=== PATIENT | female | born 1950 | race Caucasian/White ===

== ENCOUNTER 2018-01-22 20:43 | Inpatient (IN) | payer MEDICARE ==
[2018-01-22] MEDS ORDERED: Calcium Gluc 4.6 MEQ/10 ML (100 MG/ML) ONE (21:20)
[2018-01-23 01:31] VITALS: BMI 17.4
[2018-01-23] MEDS ORDERED: Albuterol Sulfate 2.5 mg/3 ml Neb NEB PRN ×2 (01:32→01:49)
[2018-01-23] MEDS ORDERED: Acetaminophen 325 MG TAB PO PRN ×2 (01:32→01:49)
[2018-01-23] MEDS ORDERED: HYDROcodone/Acetaminophen 5/325 mg Tablet PO PRN (01:49)
[2018-01-23] MEDS ORDERED: Ondansetron HCl/PF 4 MG/2 ML Vial IVP PRN (01:49)
[2018-01-23] MEDS ORDERED: Ondansetron ODT 4 MG TAB PO PRN (01:49)
[2018-01-23] MEDS ORDERED: traMADol HCl 50 MG TAB PO PRN (01:49)
[2018-01-23] MEDS ORDERED: cefTRIAXone\\ROCEPHIN 1 GM, Syringe 0.4 ML in Sterile Water 9.6 ML SLOW IVP SCH (02:00)
[2018-01-23] MEDS ORDERED: Azithromycin 500 MG in Sodium Chloride 0.9% 250 ML 250 ML IVPB SCH (03:00)
[2018-01-23 03:52] LABS: #Lymphocytes 0.9 thou/uL (1.20-3.40); #Monocytes 0.4 thou/uL (0.11-0.59); #Neutrophils 8.3 thou/uL (1.40-6.50); %Basophils 0.2 % (0.0-1.0); %Eosinophils 0.1 % (0.0-10.0); %Lymphocytes 8.9 % (21.0-51.0); %Monocytes 3.7 % (0.0-10.0); %Neutrophils 87.1 % (42.0-75.0); Hemoglobin 9.9 g/dL (12.0-16.0); Mean Corpuscular HGB CONC 31.4 g/dL (32.0-36.0); Mean Corpuscular Volume 85.9 fl (81.0-99.0); Mean Platelet Volume 6.9 fL (7.4-10.4); Platelet Count 418 thou/uL (130-400); RBC Distribution Width 14.8 % (11.5-14.5); Red Blood Cell (RBC) Count 3.66 mill/uL (4.20-5.40); White Blood Cell (WBC) Count 9.6 thou/uL (4.8-10.8)
[2018-01-23 04:02] LABS: Anion Gap 17 mmol/L (10-20); BUN (Urea Nitrogen) 10 mg/dL (9.8-20.1); Calc. Creatinine Clearance 45 mL/min (70-130); Calcium 8.3 mg/dL (7.8-10.44); Carbon Dioxide 22 mmol/L (23-31); Chloride 106 mmol/L (98-107); Estimated GFR-MDRD 81; Glucose 410 mg/dL (80-115); Potassium 3.6 mmol/L (3.5-5.1); Sodium 141 mmol/L (136-145)
[2018-01-23 04:03] LABS: Lactic Acid 7.5 mmol/L (0.5-2.2)
[2018-01-23] MEDS ORDERED: Sodium Chloride 0.9% 1,000 ML IV SCH (04:15)
--- NOTE | 2018-01-23 07:12 | HP ---
DATE OF ADMISSION: 01/23/2018 TIME OF SERVICE: 0330 CHIEF COMPLAINT: Shortness of breath. HISTORY OF PRESENT ILLNESS: Ms. Parrish is a pleasant 67-year-old female. She has a history of rheuma toid arthritis on leflunomide and chronic prednisone. She also has a history of COPD. The patient presented to an outside Emergency Department complaining of cough, was found to have whee zing and hypoxia. She was subsequently worked up and sent here for further treatment. On arrival he re, she was given some antibiotics and given nebulizer treatments and we were subsequently called for admission. She is requiring 2 liters nasal cannula to maintain oxygen saturations. Appears septic on arrival to the floor, she was weaned off oxygen, she was tolerating her breathing t reatments and was breathing somewhat better. In the outside ER, she was given Decadron, amoxicillin, DuoNeb, and mag sulfate 2 grams. On arrival here, she was given 2 liters nasal cannula, another DuoNeb and we were called for admission. PAST MEDICAL HISTORY: 1. COPD, not ever formally diagnosed. 2. Rheumatoid arthritis. PAST SURGICAL HISTORY: Hysterectomy. ALLERGIES: 1. Tramadol 50 mg p.o. q.6h. p.r.n. 2. Cipro 250 mg p.o. b.i.d. recently started. 3. Prednisone 10 mg every other day. 4. Meloxicam 7.5 mg p.o. b.i.d. 5. Leflunomide 10 mg p.o. q.p.m. 6. Flexeril 5 mg p.o. at bedtime. ALLERGIES: CODEINE causes nausea. FAMILY HISTORY: Negative for clotting or bleeding disorder, no immune dysfunction. SOCIAL HISTORY: Significant for ongoing tobacco use about 1 pack per day. REVIEW OF SYSTEMS: A 10-point review of systems was performed, negative for all systems except as pe r HPI. PHYSICAL EXAMINATION: VITAL SIGNS: Temperature 97.4, pulse 116, blood pressure 151/78, respiratory rate 20, satting 86% on room air, currently satting up to 94% on room air now. GENERAL: She is awake. She is alert. She is oriented x3. She is a small well-developed, well-nour ished, white female, appears to be in no acute distress. HEENT: Normocephalic and atraumatic. Pupils equal, round, reactive bilaterally, mucous membranes ar e moist. There are no visible lesions. No thrush. NECK: Supple. She has no lymphadenopathy, JVD or thyromegaly. She had normal carotid upstroke, no bruit. ABDOMEN: Soft, is nontender, nondistended. She had no masses or organomegaly. EXTREMITIES: No cyanosis, clubbing with trace pedal edema. SKIN: Warm, moist, well perfused. She had no rashes or lesions. NEUROLOGIC: Her cranial nerves II-XII are grossly intact without any focal neurologic deficits and 5 /5 strength. Speech pattern is normal. MUSCULOSKELETAL: Normal to inspection. No inflamed joints. No palpable effusions. LABORATORY DATA: Sodium 140, potassium 3.9, chloride 99, bicarbonate 22, BUN 14, creatinine 0.61 and glucose 177 with a calcium 9.3. The liver functions are within normal limits. CBC showed a white count of 17.6, hemoglobin 11.8, hem atocrit of 36.7, and platelet count is 476,000. Chest x-ray showed a right middle lobe infiltrate, possible pneumonia. ASSESSMENT AND PLAN: 1. Right middle lobe community-acquired pneumonia. We will transition her to levofloxacin. She has now been weaned off of oxygen. We will likely be able to discharge her later today or tomorrow if s he remains stable. 2. Acute exacerbation of chronic obstructive pulmonary disease: The patient is on nebulizer treatme nts, steroids. She can be transitioned to oral when she is stable. 3. Acute hypoxic respiratory failure: After steroids and nebulizer treatments, has resolved. She i s not requiring oxygen at this point. 4. History of steroid dependent rheumatoid arthritis on prednisone 10 mg every other day. She is cu rrently getting Solu-Medrol 40 q.6h. and we will certainly cover her rheumatoid arthritis as well. W e will hold oral prednisone at present. 5. Sepsis, severe. She did meet criteria, she was tachycardic, elevated white counts, hypoxemic and lactic acid of initially 3.1 and up to 7.8. She gets 2 liters of fluids in the Emergency Department , she got another liter on the floor and we will continue fluids at 125 an hour. Repeat lactic acid level later today. We will place the patient on inpatient status on the medical cooper. We will continue to hydrate and t reat with antibiotics and repeat labs.
[2018-01-23] MEDS: Meloxicam 7.5 MG TAB PO SCH ×2 (09:06→21:16)
[2018-01-23] MEDS: Famotidine 20 MG TAB PO SCH ×2 (09:06→21:15)
[2018-01-23] MEDS ORDERED: Heparin 5,000 UNITS/ML VIAL SC SCH (15:00)
[2018-01-23] MEDS ORDERED: Leflunomide 10 mg Tablet PO SCH (21:00)
[2018-01-23] MEDS ORDERED: Cyclobenzaprine 10 MG TAB PO SCH (21:00)
[2018-01-24] MEDS ORDERED: Dextrose 50% Abboject 50 ML SYRINGE IVP PRN (03:44)
[2018-01-24] MEDS ORDERED: HumaLOG 300 UNITS/3 ML VIAL SC PRN (03:44)
[2018-01-24] MEDS ORDERED: Dextrose 5% in Water 1,000 ML IV PRN (03:44)
[2018-01-24 05:34] LABS: Lactic Acid 3.5 mmol/L (0.5-2.2)
[2018-01-24 05:36] LABS: Anion Gap 13 mmol/L (10-20); BUN (Urea Nitrogen) 14 mg/dL (9.8-20.1); Calc. Creatinine Clearance 52 mL/min (70-130); Carbon Dioxide 29 mmol/L (23-31); Chloride 100 mmol/L (98-107); Estimated GFR-MDRD Greater than 90; Glucose 287 mg/dL (80-115); Potassium 3.4 mmol/L (3.5-5.1); Sodium 139 mmol/L (136-145)
[2018-01-24 05:43] LABS: Hemoglobin 11.2 g/dL (12.0-16.0); MDiff Complete? YES; Mean Corpuscular HGB CONC 31.4 g/dL (32.0-36.0); Mean Corpuscular Hemoglobin 27.2 pg (27.0-31.0); Mean Corpuscular Volume 86.5 fl (81.0-99.0); Mean Platelet Volume 6.9 fL (7.4-10.4); Platelet Count 462 thou/uL (130-400); RBC Distribution Width 15.3 % (11.5-14.5); Red Blood Cell (RBC) Count 4.13 mill/uL (4.20-5.40); White Blood Cell (WBC) Count 14.9 thou/uL (4.8-10.8)
[2018-01-24 05:44] LABS: Band 14 % (5-11); Lymphocytes 8 % (21-51); Metamyelocyte 5 % (0-0); Monocytes 6 % (0-10); Neutrophil 67 % (42-75); PLT Morphology Comment Appears Increased
[2018-01-24] MEDS: HumaLOG 300 UNITS/3 ML VIAL SC PRN ×2 (05:51→12:21)
[2018-01-24] MEDS: Famotidine 20 MG TAB PO SCH (08:51)
[2018-01-24] MEDS: Meloxicam 7.5 MG TAB PO SCH (08:51)
[2018-01-24] MEDS ORDERED: Prevnar 13-Val Conj/PF 0.5 ML SYRINGE IM ONE (09:00)
[2018-01-24] MEDS ORDERED: FLU VACC TS2017-18 (>65YR) 0.5 ML SYRINGE IM ONE (09:00)
[2018-01-24] MEDS ORDERED: Potassium Chloride 20 MEQ TAB PO SCH (10:00)
[2018-01-24 10:06] LABS: Hemoglobin A1c 5.8 % (4.0-6.0)
[2018-01-24] MEDS ORDERED: Sodium Chloride 0.9% 500 ML IV SCH (11:15)
[2018-01-24 13:30] VITALS: BP 143/80; TEMP 98
--- NOTE | 2018-01-24 20:11 | DIS ---
DATE OF ADMISSION: 01/23/2018 DATE OF DISCHARGE: 01/24/2018 DISCHARGE DIAGNOSES: Severe sepsis secondary to right middle lobe pneumonia, chronic obstructive pul monary disease exacerbation, acute hypoxic respiratory failure, steroid dependent rheumatoid arthriti s on 10 mg prednisone every other day. HISTORY OF PRESENT ILLNESS AND HOSPITAL COURSE: Ms. Parrish is a 67-year-old female with a history of rheumatoid arthritis on leflunomide and chronic prednisone, COPD who presented to the emergency room with cough, shortness of breath, wheezing. She was found to be hypoxic. She was started on nebulize r therapy, 2 liters of IV fluid that she met sepsis criteria and IV levofloxacin. Before presenting at our ER from her outside ER, she was given a dose of Decadron, amoxicillin, DuoNeb and magnesium ellis lfate 2 grams. While in house, she responded to therapy. She was weaned off oxygen. Her initial la ctate level was 7.8 and improved to 3.5 before discharge. She also had a hemoglobin A1c done, which was 5.8. Her labs were largely unremarkable and she was discharged home without incident. HOME MEDICATIONS: Levofloxacin 750 mg daily, prednisone 40 mg daily for 5 days, tramadol 50 mg every 4 hours as needed, prednisone 10 mg every other day, Flexeril 5 mg at bedtime, Meloxicam 7.5 mg twic e a day, leflunomide 10 mg every evening. PHYSICAL EXAMINATION: She was examined on the day of discharge. VITAL SIGNS: Temperature of 106, respiratory rate 20, oxygen saturation 94% on room air, blood press ure 149/80. GENERAL: Not in acute distress, lying comfortably in bed. HEENT: Normocephalic, atraumatic, not pale, anicteric. Moist mucous membranes. NECK: Supple, full range of movement. No edema. RESPIRATORY: Vesicular breath sounds bilaterally with no wheezes or rales. CARDIOVASCULAR: Regular rate and rhythm, S1 and S2 only. No murmurs, rubs or gallops. ABDOMEN: Soft, nontender, nondistended. Bowel sounds present. No hepatosplenomegaly. MUSCULOSKELETAL: No edema. Moving all extremities spontaneously. SKIN: Warm, dry, well-perfused. No rashes or lesions. NEUROLOGIC: Alert and well oriented to time, place and person. No focal deficits. PSYCHIATRIC: Normal mood and affect. LABORATORY DATA: WBC 14.9 (on parenteral steroids), hemoglobin 11.2, platelet count 462. Sodium 139 , potassium 3.4, chloride 100, carbon dioxide 29, anion gap 13, BUN 14, creatinine 0.62, glucose 287, calcium 9.0. IMAGING: None. CONSULTATIONS: None. PROCEDURES: None. CONDITION AT DISCHARGE: Stable and improved. ACTIVITY: To resume as tolerated. CARE GOALS: The patient is to follow up with her primary care physician within 1 week of discharge f or repeat labs.
--- NOTE | 2018-02-10 15:46 | EKG ---
Test Reason : Blood Pressure : / mmHG Vent. Rate : 128 BPM Atrial Rate : 128 BPM P-R Int : 118 ms QRS Dur : 110 ms QT Int : 320 ms P-R-T Axes : 078 062 046 degrees QTc Int : 467 ms Sinus tachycardia Right bundle branch block Abnormal ECG Confirmed by IVORY SAUER M.D. ([id number]), photographic editor MEDARDO TRUONG ([id number] on 02/10/2018 3:46:07 PM Referred By: Confirmed By:IVORY SAUER M.D.
== END 2018-01-24 13:50 | disposition home or self-care (01) | DRG 871 ==
LOC: ERS 20:43 → T4-B 01-23 00:55
PROVIDERS: ADMIT Internal Medicine Infectious Disease; ATTEND Internal Medicine Infectious Disease
DX: A41.9 Sepsis, unspecified organism (principal); J18.9 Pneumonia, unspecified organism; J96.01 Acute respiratory failure with hypoxia; J44.1 Chronic obstructive pulmonary disease with (acute) exacerbation; R65.20 Severe sepsis without septic shock; F17.210 Nicotine dependence, cigarettes, uncomplicated; M06.9 Rheumatoid arthritis, unspecified
CPT/HCPCS: 36415; 36416; 80048; 83036; 83605; 85025; 90471; 90670; 93005; 94640; 96360; 96361; A4216; G0009; G8978-GP-CK; G8979-GP-CK; G8980-GP-CK; G8987-GO-CH; G8988-GO-CH; G8989-GO-CH; J0456; J0696; J1956; J2920; J7050; J7620

== ENCOUNTER 2019-06-24 20:44 | Inpatient (IN) | payer MEDICARE ==
[2019-06-25] MEDS ORDERED: Calcium Carbonate 500 MG ChewTAB PO PRN (10:58)
[2019-06-25] MEDS ORDERED: Acetaminophen 325 MG TAB PO PRN (10:58)
[2019-06-25] MEDS ORDERED: Bisacodyl 10 MG SUPP PR PRN (10:58)
[2019-06-25] MEDS ORDERED: Ondansetron ODT 4 MG TAB PO PRN (10:58)
[2019-06-25] MEDS ORDERED: Senokot S 8.6-50 MG TAB PO PRN (10:58)
[2019-06-25] MEDS ORDERED: Ondansetron PF 4 MG/2 ML Vial IVP PRN (10:58)
[2019-06-25] MEDS ORDERED: Pantoprazole 40 MG VIAL IVP SCH (11:00)
[2019-06-25] MEDS ORDERED: Pantoprazole 40 MG VIAL ONE (11:16)
[2019-06-25] MEDS ORDERED: Acetaminophen 325 MG TAB ONE (11:16)
[2019-06-25 12:20] LABS: Hemoglobin 13.8 g/dL (12.0-16.0); Mean Corpuscular HGB CONC 31.4 g/dL (32.0-36.0); Mean Corpuscular Hemoglobin 22.8 pg (27.0-31.0); Mean Corpuscular Volume 72.8 fL (78.0-98.0); Mean Platelet Volume 5.7 fL (7.4-10.4); Platelet Count 321 thou/uL (130-400); RBC Distribution Width 24.3 % (11.5-14.5); Red Blood Cell (RBC) Count 6.03 mill/uL (4.20-5.40); Reticulocyte Count 1.6 % (0.5-1.5); White Blood Cell (WBC) Count 15.2 thou/uL (4.8-10.8)
[2019-06-25 12:23] LABS: INR-International Normal Ratio 1.1; PTT 28.7 SEC (22.9-36.1); Prothrombin Time 13.8 SEC (12.0-14.7)
[2019-06-25 12:40] LABS: ALT (SGPT) Less than 7 U/L (8-55); AST (SGOT) 14 U/L (5-34); Albumin 3.7 g/dL (3.4-4.8); Alkaline Phosphatase 102 U/L (40-150); Anion Gap 13 mmol/L (10-20); BUN (Urea Nitrogen) 7 mg/dL (9.8-20.1); Bilirubin, Total 1.8 mg/dL (0.2-1.2); Calc. Creatinine Clearance 0 mL/min (70-130); Carbon Dioxide 24 mmol/L (23-31); Chloride 103 mmol/L (98-107); Estimated GFR-MDRD Greater than 90; Globulin 2.7 g/dL (2.4-3.5); Glucose 67 mg/dL (80-115); Potassium 3.6 mmol/L (3.5-5.1); Protein, Total 6.4 g/dL (6.0-8.3); Sodium 136 mmol/L (136-145)
[2019-06-25 12:45] LABS: Anisocytosis MODERATE=16-30 cells (100X) (0-5/hpf); Band 11 % (5-11); Elliptocytes SLIGHT = 2-5 cells (100X) (0-1/hpf); Hypochromia SLIGHT = 6-15 cells (100X) (0-5/hpf); Lymphocytes 15 % (21-51); MDiff Complete? YES; Microcytosis SLIGHT = 6-15 cells (100X) (0-5/hpf); Monocytes 1 % (0-10); Neutrophil 69 % (42-75); Nucleated RBC 1 % (0); Ovalocytes SLIGHT = 2-5 cells (100X) (0-1/hpf); Platelet Morphology Comment Appears Adequate; Poikilocytosis SLIGHT = 6-15 cells (100X) (0-5/hpf); Polychromasia MODERATE = 3-4 cells (100X) (0-2/hpf); Reactive Lymphocytes 1 % (0-10); Reflex for Review?? NO; Schistocytes SLIGHT = 2-5 cells (100X) (0-1/hpf); Target Cells SLIGHT = 2-5 cells (100X) (0-1/hpf); Vacuoles SLIGHT
[2019-06-25] MEDS ORDERED: Nystatin 500,000 UNITS/5 ML UDCUP SSW SCH (13:00)
[2019-06-25] MEDS ORDERED: traMADol HCl 50 MG TAB PO PRN (15:02)
[2019-06-25] MEDS ORDERED: Cyclobenzaprine 10 MG TAB PO PRN (15:03)
[2019-06-25] MEDS ORDERED: Nystatin 500,000 UNITS/5 ML UDCUP SSW PRN (15:03)
--- NOTE | 2019-06-25 15:55 | HP ---
PRIMARY CARE PHYSICIAN: Phyllis Darling. PRIMARY DEPLOYMENT SPECIALIST: Dr. Diop. CHIEF COMPLAINT: Abnormal labs. HISTORY OF PRESENT ILLNESS: The patient is a 69-year-old white female with rheumatoid arthritis, on chronic steroids, presented to the emergency room with above complaints. Two days ago, the patient had CBC drawn as outpatient that showed low hemoglobin. She was not told how low was her hemoglobin. She was advised to go to the emergency room for evaluation. She presented to [facility] and was found to have hemoglobin of 6.5. She has been having exertional shortness of breath along with generalized fatigue recently. She denies any chest pain or syncope. Approximately one month ago, she had small amount of blood on the toilet paper that lasted for 2 to 3 days. She has also lost approximately 5 pounds recently. She denies any hematemesis, melena, or hematochezia. No change in appetite. She had a normal bowel movement today. The patient denies any recent use of NSAID except for meloxicam 7.5 mg b.i.d., which she takes on a daily basis. PAST MEDICAL HISTORY: 1. Rheumatoid arthritis, on chronic steroids and leflunomide. 2. Chronic pain syndrome. 3. Chronic obstructive pulmonary disease. PAST SURGICAL HISTORY: Hysterectomy. MEDICATIONS: The patient takes tramadol as needed, Flexeril 10 mg nightly, prednisone 10 mg daily, meloxicam 7.5 mg b.i.d., leflunomide 10 mg daily. ALLERGIES: THE PATIENT IS ALLERGIC TO CODEINE. REVIEW OF SYSTEMS: All other review of systems was reviewed and were found negative. SOCIAL HISTORY: The patient currently lives at home with her family. She continues to smoke up to one pack a day. She denies any alcohol or drug use. She has smoked for more than 25 years. FAMILY HISTORY: Negative for heart disease. PHYSICAL EXAMINATION: VITAL SIGNS: At [facility], initial vital signs showed temperature of 98.1, respirations are 18, pulse rate of 124, blood pressure of 126/68, and O2 saturation 92% on room air. GENERAL: A 69-year-old female in no apparent distress. She has some headache this morning. HEENT: Head; atraumatic and normocephalic. Sclerae anicteric. Dry mucous membranes. No oral lesion. NECK: Supple. No JVD appreciated. No carotid bruit. LUNGS: Showed bilateral rhonchi without any wheezing. HEART: S1 and S2 present. Regular rate and rhythm. Tachycardic. No rubs or gallops. ABDOMEN: Soft and nontender. Bowel sounds present. EXTREMITIES: No edema or calf tenderness. NEUROLOGIC: Grossly nonfocal. Moves all 4 extremities. PSYCHIATRY: Alert, awake, and oriented x3. SKIN: Warm and dry. LYMPH NODES: No palpable lymph nodes in the neck. PERIPHERAL VASCULAR: Radial pulses palpable bilaterally. MUSCULOSKELETAL: No joint swelling or tenderness. LABORATORY FINDINGS: Hemoglobin 6.5, WBC 14.6, hematocrit 23.2, and platelet 471. PT/INR and PTT, normal range. Troponin 0.030. CK-MB was 1.2. Ferritin 20.1. Sodium 138, potassium 4.6, chloride 100, bicarb 26, BUN 9, and creatinine 0.72. BNP was 32. Stool for occult blood in the emergency room was negative. Chest x-ray by my review was negative for acute findings. IMPRESSION: 1. Anemia of unclear etiology. 2. Rheumatoid arthritis, on chronic steroids and leflunomide. 3. Chronic pain syndrome. 4. Ongoing tobacco abuse. 5. Questionable chronic obstructive pulmonary disease. 6. Leukocytosis, unlikely to be infectious. 7. Weight loss of 5 pounds over the last month. 8. Codeine allergy. 9. Elevated troponin probably secondary to sinus tachycardia/type 2 myocardial infarction. PLAN: The patient will be monitored on the medical floor. She received a total of 3 units of PRBC in the emergency room. We will repeat H and H in the morning. Gentle IV hydration. IV PPIs. We will consult Gastroenterology. Clear liquid diet for now. Resume home medications. Avoid NSAIDs. Plan of care was discussed with the patient in detail. She stated understanding. Job ID: [id number]
[2019-06-25 16:17] VITALS: BMI 13.6
[2019-06-25] MEDS: Sodium Chloride 0.9% 1,000 ML IV SCH (16:36)
[2019-06-25] MEDS ORDERED: GoLYTELY 4,000 ml Bottle PO SCH (19:00)
[2019-06-25] MEDS: Pantoprazole 40 MG VIAL IVP SCH (20:26)
[2019-06-25] MEDS: Cyclobenzaprine 10 MG TAB PO SCH (20:27)
[2019-06-26] MEDS: Sodium Chloride 0.9% 1,000 ML IV SCH ×2 (07:20→16:51)
[2019-06-26 07:21] LABS: Hemoglobin 13.7 g/dL (12.0-16.0); Mean Corpuscular Hemoglobin 22.2 pg (27.0-31.0); Mean Corpuscular Volume 74.2 fL (78.0-98.0); Mean Platelet Volume 5.7 fL (7.4-10.4); Platelet Count 334 thou/uL (130-400); RBC Distribution Width 26.3 % (11.5-14.5); Red Blood Cell (RBC) Count 6.16 mill/uL (4.20-5.40); White Blood Cell (WBC) Count 13.6 thou/uL (4.8-10.8)
[2019-06-26] MEDS: predniSONE 5 MG TAB PO SCH (07:26)
[2019-06-26 07:31] LABS: Anion Gap 12 mmol/L (10-20); BUN (Urea Nitrogen) 4 mg/dL (9.8-20.1); Calc. Creatinine Clearance 41 mL/min (70-130); Calcium 8.9 mg/dL (7.8-10.44); Carbon Dioxide 26 mmol/L (23-31); Chloride 105 mmol/L (98-107); Estimated GFR-MDRD Greater than 90; Glucose 66 mg/dL (80-115); Magnesium 1.8 mg/dL (1.6-2.6); Potassium 3.6 mmol/L (3.5-5.1); Sodium 139 mmol/L (136-145)
[2019-06-26] MEDS: Pantoprazole 40 MG VIAL IVP SCH (08:01)
[2019-06-26 08:12] LABS: Anisocytosis MODERATE=16-30 cells (100X) (0-5/hpf); Band 7 % (5-11); Eosinophils 2 % (0-10); Hypochromia SLIGHT = 6-15 cells (100X) (0-5/hpf); Lymphocytes 9 % (21-51); MDiff Complete? YES; Microcytosis MODERATE=15-30 cells (100X) (0-5/hpf); Monocytes 8 % (0-10); Neutrophil 63 % (42-75); Ovalocytes SLIGHT = 2-5 cells (100X) (0-1/hpf); Platelet Morphology Comment Appears Adequate; Polychromasia MODERATE = 3-4 cells (100X) (0-2/hpf); Reactive Lymphocytes 10 % (0-10); Small Platelets SLIGHT
--- NOTE | 2019-06-26 08:15 | CON ---
DATE OF CONSULTATION: REASON FOR CONSULT: Severe microcytic anemia. HISTORY OF PRESENT ILLNESS: Ms. Parrish is a 69-year-old female with chronic arthritis, which she states is rheumatoid arthritis in nature. She has been treated for many years. More recently, she has been on leflunomide and from the last year, she has been taking prednisone 10 mg daily and meloxicam 7.5 mg b.i.d. She became more and more fatigued and her preparer or one of her clinic doctors got blood work and found her to be profoundly anemic. She was told to come to the hospital. Her hemoglobin had been 11.1 here in February of 2018. On arrival here at 6 p.m. on 06/24, her hemoglobin was 6.5 and she had a white count of 14.6 and platelet count of 471. She has had blood transfusion of 3 units, and her hemoglobin presently is 13.8. Her MCV was 57 on presentation. The patient states she has seen a blob of blood in her stool every once in awhile but has not had any other bowel changes. No difficulty with bowel movements or diarrhea or change in bowel function or stool size. She denies any abdominal pain. She states her weight is a bit up and down. More recently, it has been down a bit. She denies any melena, hematochezia, or hematemesis. She denies any fever or chills. She denies any prior knowledge of anemia. The only imaging I see at this hospital in the past was a CAT scan in 02/2018, at which time, she had a CAT scan of the abdomen and pelvis for right upper quadrant abdominal pain. There was diverticulosis with some fecal matter throughout the colon and possible thickening in the sigmoid. Degenerative spine changes. Scoliosis. Evidence of previous hysterectomy. Vascular calcifications. Small pulmonary nodule. She was not admitted at that time. PAST MEDICAL HISTORY: Rheumatoid arthritis, on chronic steroids, leflunomide, and NSAIDs. Chronic pain syndrome. COPD. Uterine cancer, for which she had the hysterectomy. PAST SURGICAL HISTORY: Hysterectomy. MEDICATIONS: 1. Tramadol p.r.n. 2. Flexeril. 3. Prednisone 10 mg daily. 4. Meloxicam 7.5 mg b.i.d. for several years. 5. She has been on no ulcer prophylaxis. 6. She is on leflunomide 10 mg daily. ALLERGIES: CODEINE. REVIEW OF SYSTEMS: Negative for dysphagia, odynophagia, melena, hematochezia, hematemesis, anorexia, or change in bowel function. Positive for shortness of breath and dyspnea on exertion recently, which resolved with transfusion. Negative for history of dysuria, frequency, urgency, or hematuria. Negative for cough. Negative for fever or chills. Negative for rashes, myalgias, or arthralgias. SOCIAL HISTORY: The patient lives at home with family. She continues to smoke about a pack per day. She does not drink. She does not use drugs. MEDICATIONS: Here in the hospital, 1. Prednisone 10 mg p.o. daily. 2. Normal saline at 75 an hour. 3. Tramadol p.r.n. 4. Protonix 40 IV q.12. 5. Leflunomide. 6. Flexeril. 7. Tylenol. PHYSICAL EXAMINATION: VITAL SIGNS: Temperature is 98, pulse 105, and blood pressure 169/90. GENERAL: She is thin and frail. SKIN: Frail. HEENT: Her oropharynx is without lesions. NECK: Supple without nodes. LUNGS: Clear. HEART: Regular rate and rhythm without clicks, rubs, or murmurs. ABDOMEN: Soft, nontender with no rebound or guarding. Bowel sounds are positive. EXTREMITIES: No clubbing, cyanosis, or edema. She has some muscle wasting. LABORATORY DATA: White count 15.2, hemoglobin 13.8, MCV 72, and platelet count 321. INR 1.1. Comp met profile normal with a BUN of 7 and creatinine 0.57. Bilirubin 1.8. AST and ALT are 14 and 7, protein 6, and albumin 3.7. Troponin was 0.026. ASSESSMENT: 1. Severe microcytic anemia in the face of chronic NSAID and steroids. My concern would be that of GI blood loss from ulcer disease. She has also had some thickening in the sigmoid colon about a year ago. She has no pain here and denies any change in bowel function, but she has never had any screening colonoscopy either. 2. Chronic steroid use. She is at high risk for complications related to this, not just with ulcer disease in the GI tract but with poor wound healing, increased risk, complications of invasive procedures. I have explained all of this with her. However, with her severe anemia, I think she is going to need endoscopic evaluation. She is stable presently. She shows no signs of acute bleeding and is stable from a Cardiopulmonary standpoint. RECOMMENDATIONS: EGD and colonoscopy tomorrow. The risks, benefits, and possible complications of the procedure were discussed with the patient including risk of perforation, bleeding, reaction to medication, and aspiration. She understands that she has a severe risk of complication such as perforation and she would need surgery to repair this. She also understands that there is significant risk that she has significant ulcer disease or even malignant neoplasia, which can present as severe microcytic anemia. She wished to proceed. We will do that tomorrow. Job ID: [id number]
[2019-06-26] MEDS ORDERED: PROPOFOL 200 MG/20 ML VIAL ONE (16:22)
[2019-06-26] MEDS: Leflunomide 10 mg Tablet PO SCH (16:51)
[2019-06-26] MEDS ORDERED: Ketamine 50 MG/ML (10ML VIAL) ONE (18:59)
[2019-06-26] MEDS ORDERED: PROPOFOL 40 ML ONE (18:59)
--- NOTE | 2019-06-26 19:54 | PDOC.HOSPP ---
- Subjective Encounter Date: 06/26/19 Encounter Time: 18:00 Subjective: Patient seen and examined for Anemia with suspected GI bleed. No new hematemesis or Melena. No new complaints. No overnight events - Objective Vital Signs & Weight: Vital Signs (12 hours) Temp Pulse Resp BP BP Pulse Ox 06/26/19 11:28 98.4 F 118 H 16 168/96 H 91 L 06/26/19 09:00 146/72 H 06/26/19 08:00 90 L Weight Weight 65 lb I&O: 06/25/19 06/26/19 06/27/19 06:59 06:59 06:59 Intake Total 420 Balance 420 Result Diagrams: 06/27/19 06:25 06/26/19 06:14 ROS - Review of Systems Respiratory: denies: cough, dry, shortness of breath, hemoptysis, SOB with excertion, pleuritic pain, sputum, wheezing, other Cardiovascular: denies: chest pain, palpitations, orthopnea, paroxysmal noc. dyspnea, edema, light headedness, other Gastrointestinal: denies: nausea, vomitting, abdominal pain, diarrhea, constipation, melena, hematochezia, other - Medication Medications: Active Medications Generic Name Dose Route Start Last Admin Trade Name Freq PRN Reason Stop Dose Admin Acetaminophen 650 mg 06/25/19 10:58 06/25/19 11:20 Tylenol PO 650 mg Q4H PRN Administration Headache/Fever/Mild Pain (1-3) Cyclobenzaprine HCl 10 mg 06/25/19 21:00 06/25/19 20:27 Flexeril PO Not Given HS OLINDA Sodium Chloride 1,000 mls @ 75 mls/hr 06/25/19 15:15 06/26/19 16:51 Normal Saline 0.9% IV Not Given .[id number] OLINDA Leflunomide 10 mg 06/26/19 12:00 06/26/19 16:51 Arava PO Not Given 1200 OLINDA Pantoprazole Sodium 40 mg 06/25/19 21:00 06/26/19 08:01 Protonix IVP 40 mg Q12HR OLINDA Administration Prednisone 10 mg 06/26/19 09:00 06/26/19 07:26 Prednisone PO Not Given DAILY OLINDA Tramadol HCl 50 mg 06/25/19 15:02 06/25/19 20:36 Ultram PO 50 mg Q4H PRN Administration Pain - Exam NAD Heart: RRR, no rubs Respiratory: CTAB, no ronchi Gastrointestinal: soft, non-tender, normal bowel sounds Extremities: no cyanosis, no edema Hosp A/P - Plan IMPRESSION: 1. Anemia of unclear etiology. s/p 3 units PRBC 2. Rheumatoid arthritis, on chronic steroids and leflunomide. 3. Chronic pain syndrome. 4. Ongoing tobacco abuse. Counselled 5. ?COPD 6. Leukocytosis, unlikely to be infectious. 7. Weight loss of 5 pounds over the last month. 8. Codeine allergy. 9. Elevated troponin probably secondary to sinus tachycardia/type 2 myocardial infarction. PLAN: Await EGD/Colonoscopy HH in AM Transfuse PRN to keep Hb >7 Cont IV PPIs. Cont other meds as below
[2019-06-26] MEDS ORDERED: Promethazine HCl 25 MG/ML VIAL IM PRN (20:03)
[2019-06-26] MEDS ORDERED: Promethazine HCl 25 MG/ML VIAL SLOW IVP PRN (20:03)
[2019-06-26] MEDS ORDERED: Ondansetron HCl/PF 4 MG/2 ML Vial IVP PRN (20:03)
[2019-06-26] MEDS: Cyclobenzaprine 10 MG TAB PO SCH (20:49)
[2019-06-27 06:32] LABS: Hemoglobin 13.3 g/dL (12.0-16.0)
[2019-06-27] MEDS: Sodium Chloride 0.9% 1,000 ML IV SCH (06:35)
[2019-06-27] MEDS: predniSONE 5 MG TAB PO SCH (08:25)
[2019-06-27] MEDS: Leflunomide 10 mg Tablet PO SCH (12:49)
[2019-06-27 16:17] VITALS: BP 168/84; TEMP 98.1
--- NOTE | 2019-06-27 16:40 | PRG ---
DATE OF SERVICE: 06/27/2019 SUBJECTIVE: Ms. Parrish has had no bleeding. She is eating well. She did have 2 loose stools. She thinks it was because she has not been eating solid food. She has had some solid for lunch. She has no abdominal pain. She has not had issues with diarrhea in the past. She wants to go home. OBJECTIVE: VITAL SIGNS: Temperature 98.1, pulse 100 to 115 chronically, blood pressure 165/91. GENERAL: She is resting in bed. Her daughter is at bedside. She is thin. She is in no distress. LABORATORY DATA: Her hemoglobin is 13.3, her white count is 13.6, platelet count 335. Basic metabolic profile shows BUN and creatinine are 4 and 0.6 yesterday. Normal electrolytes. ASSESSMENT: 1. Admission with severe microcytic anemia, symptomatic, likely related to the chronic gastric ulcer that was found, it is nonbleeding. She is now on a PPI. 2. Gastric ulcer likely NSAID related to her chronic meloxicam and steroids. I have recommended she stop the meloxicam. She will continue the steroid. She is dependent on that. We will add a PPI. Biopsies are pending. 3. Flat polyp in the right colon, not removed secondary to size. If this is high-grade dysplasia or malignancy, she would need surgery. I will arrange that in the outpatient setting. If it is not, we can take it off and we will re-evaluate her stomach in 8 weeks. PLAN: I will talk with Dr. Estrada, hospitalist and I agree with her discharge. Avoiding NSAIDs, and starting a PPI. She can follow up in our office. I will arrange that and I have gotten her daughter's phone number. Job ID: [id number]
--- NOTE | 2019-06-28 09:43 | DIS ---
DATE OF ADMISSION: 06/25/2019 DATE OF DISCHARGE: 06/27/2019 DISCHARGE DISPOSITION: Home. FOLLOWUP: 1. Follow up with primary care physician, Phyllis Darling in 1 week. 2. Follow up with Gastroenterology in 2 to 3 weeks. DISCHARGE MEDICATION: Protonix 40 mg daily. All other home medications were left unchanged. The patient was seen and examined on the day of discharge. Denies any new complaints. No chest pain, shortness of breath, palpitation, hematemesis, melena, or hematochezia reported. She had 2 episodes of diarrhea last night that is gradually improving. BRIEF HOSPITAL COURSE: The patient is a 69-year-old female with rheumatoid arthritis, on chronic steroids, presented to the emergency room with anemia. Her repeat hemoglobin in the emergency room was 6.5. She has been having exertional shortness of breath as well as generalized fatigue. Her troponins were indeterminate in the emergency room. She received total of 3 units of PRBC in this admission. Her hemoglobin stabilized between 13.3 to 13.8 in the last 2 days. Reticulocyte was 1.6. She underwent EGD that showed chronic gastric ulcer without any active bleeding. She was told to discontinue meloxicam. Biopsies have been obtained. She was advised to follow up with biopsy report with Dr. Nogueira. Colonoscopy showed flat polyp in the right colon, not removed secondary to the size. She appears stable for discharge. FINAL DIAGNOSES: 1. Severe symptomatic anemia secondary to chronic gastrointestinal bleeding. 2. Chronic gastrointestinal blood loss. 3. Rheumatoid arthritis, on chronic steroids and leflunomide. 4. Chronic NSAID use. The patient was advised to discontinue meloxicam. 5. Chronic pain syndrome. 6. Ongoing tobacco dependence. The patient was advised to discontinue tobacco. 7. Suspected chronic obstructive pulmonary disease. The patient will benefit from an outpatient pulmonary function testing. 8. Leukocytosis, unlikely to be infectious. Weight loss of 5 pounds in the last month. She was advised to continue Ensure. 9. Codeine allergy. 10. Slightly elevated troponin of 0.030. Repeat troponin was 0.026. The elevation is probably secondary to sinus tachycardia/type 2 myocardial infarction. Job ID: [id number]
--- NOTE | 2019-06-30 08:28 | OP ---
DATE OF PROCEDURE: 06/26/2019 PROCEDURE PERFORMED: Esophagogastroduodenoscopy and colonoscopy. PREPROCEDURE DIAGNOSES: 1. Severe microcytic anemia. 2. Chronic nonsteroidal anti-inflammatory drugs use. 3. Chronic steroid use. POSTPROCEDURE DIAGNOSES: 1. Two ulcers noted in the antrum of stomach. One deep with some new epithelialization at the 10 o'clock position in reference to the pyloric channel, biopsies obtained. One superficial at the 1 o'clock position in relation to the pylorus, biopsies obtained. 2. Flat polyp in the ascending colon about 1.5 cm in size, biopsied, but not removed. ANESTHESIA: TIVA. RECOMMENDATIONS: 1. Await histopathology. 2. Follow up in the office in 2 weeks. 3. Repeat endoscopy in 6 to 8 weeks to confirm healing of ulcers. 4. Avoid all NSAIDs. 5. Recommend she see her PCP about getting on different medications for arthritis, long-term steroids, high risk for complications. PROCEDURE IN DETAIL: The patient was informed of the risks, benefits, and possible complications of endoscopy including perforation, bleeding, reaction to medication, and aspiration, informed consent was obtained. The patient was brought to the endoscopy suite, where she was sedated in gradual fashion. Once she was comfortable, bite block was placed inside the orifice. The esophagus was normal. This was somewhat atrophic in appearance. There was no evidence of strictures, rings or webs. The stomach was entered and found to have somewhat atrophic mucosa in the antrum of the stomach. There was a white based ulcer deep with some new epithelialization. Biopsies were taken from the margin as there was no active bleeding from it. There was also small centered ulcer in the antrum superior to the pylorus. The duodenal bulb was clear. Duodenum was clear to third portion. Retroflexed views in the stomach were normal. The scope was removed. The patient tolerated procedure well. There were no complications. The patient then was turned to the room and a rectal examination was performed, which was normal. The endoscope was advanced to the anal canal through the colon to the cecum, which was identified by the ileocecal valve and appendiceal orifice. There was a flat polyp in ascending colon about 1.5 cm in size. The colonic mucosa was very atrophic presumptively from chronic steroid use. Decision was made not to remove this polyp today as there was significant risk of perforation, and with the size, it may require surgical excision, so it was biopsied. No other polyps were seen. Retroflexed views were performed in the rectum. The scope was removed. The patient tolerated procedure well. There were no complications. Job ID: [id number]
--- NOTE | 2019-07-09 18:06 | PRG ---
DATE OF SERVICE: 07/09/2019 SUBJECTIVE: Ms. Parrish is feeling a little better. She still has been complaining of raw lips and burning mouth and tongue. Orders have been written to start on Magic mouthwash and have some lip balm. OBJECTIVE: VITAL SIGNS: Temperature is 98.2, pulse 107 to 106, blood pressure is 152/85. LUNGS: Clear. ABDOMEN: Soft and nontender. She is frail and thin. LABORATORY DATA: White count is 16.9, hemoglobin 10.7, MCV 75, platelet count 234. Sodium 139, potassium 4.7, BUN and creatinine 14 and 0.5, calcium 8.5. Cortrosyn stimulation test showed adrenal insufficiency with baseline cortisol less than 1; 30, 60, and 90 minutes were 9.2, 10, and 12. ASSESSMENT: 1. Bacteremia with multiple organisms. No overt source identified. Exploratory laparotomy showed no signs of bowel ischemia, colon or small, and no signs of perforation from a gastric ulcer. 2. Adrenal insufficiency. She is on steroids. 3. History of gastric ulcer. I think she can be moved to p.o. ProtonTaglocity. Job ID: [id number]
== END 2019-06-27 16:46 | disposition home or self-care (01) | DRG 377 ==
LOC: ERS 20:44 → ERHOLD 06-25 00:19 → T4-B 06-25 16:05
PROVIDERS: ADMIT Hospitalist; ATTEND Hospitalist
PROC: 30233N1 Transfusion of Nonautologous Red Blood Cells into Peripheral Vein, Percutaneous Approach (ICD-10-PCS; principal; 2019-06-25)
PROC: 0DB78ZX Excision of Stomach, Pylorus, Via Natural or Artificial Opening Endoscopic, Diagnostic (ICD-10-PCS; 2019-06-26)
PROC: 0DBK8ZX Excision of Ascending Colon, Via Natural or Artificial Opening Endoscopic, Diagnostic (ICD-10-PCS; 2019-06-26)
DX: K25.4 Chronic or unspecified gastric ulcer with hemorrhage (principal); I21.A1 Myocardial infarction type 2; Z68.1 Body mass index [BMI] 19.9 or less, adult; M06.9 Rheumatoid arthritis, unspecified; G89.4 Chronic pain syndrome; D72.829 Elevated white blood cell count, unspecified; J44.9 Chronic obstructive pulmonary disease, unspecified; D50.0 Iron deficiency anemia secondary to blood loss (chronic); F17.210 Nicotine dependence, cigarettes, uncomplicated; F55.3 Abuse of steroids or hormones; R63.4 Abnormal weight loss; K63.5 Polyp of colon; Z88.5 Allergy status to narcotic agent; Z90.710 Acquired absence of both cervix and uterus; Z79.899 Other long term (current) drug therapy; Z71.6 Tobacco abuse counseling
CPT/HCPCS: 36415; 80048; 80053; 82728; 83735; 84484; 85007; 85014; 85018; 85025; 85027; 85046; 85610; 85730; 86850; 86900; 86901; 88305; 88312; C9113; J2704; P9016

== ENCOUNTER 2019-07-04 11:06 | Inpatient (IN) | payer MEDICARE ==
[~2019-07-04 11:06] MED LIST: Heparin 1,000 UNITS/ML VIAL ONE
[2019-07-04] MEDS ORDERED: Norepinephrine 4 MG/4 ML VIAL ONE (12:15)
[2019-07-04] MEDS ORDERED: Aspirin Chewable 81 MG TAB ONE (12:16)
[2019-07-04 12:50] LABS: Troponin I 0.362 ng/mL (< 0.028)
[2019-07-04] MEDS ORDERED: methylPREDNISolone Sod Succ 40 MG VIAL ONE (13:44)
[2019-07-04] MEDS ORDERED: Ondansetron ODT 4 MG TAB PO PRN (13:54)
[2019-07-04] MEDS ORDERED: Acetaminophen 325 MG TAB PO PRN (13:54)
[2019-07-04] MEDS ORDERED: Norepinephrine 8 MG/0.9% NS 250 ML IVPB SCH (14:00)
--- NOTE | 2019-07-04 14:59 | RAD ---
Exam: Chest one view: HISTORY: Diffuse crackles COMPARISON: 07/04/2019 FINDINGS: Stable increased interstitial and linear parenchymal changes bilaterally with slight indistinction in the costophrenic angles. No confluent process. Little change from prior studies. Arthrosis changes of both glenohumeral joints and evidence for bilateral rotator cuff disease. IMPRESSION: Increased linear and interstitial parenchymal changes bilaterally stable from prior study. No signifi cant new process.
[2019-07-04 15:26] LABS: Hemoglobin 11.8 g/dL (12.0-16.0)
[2019-07-04] MEDS ORDERED: Magnesium Sulfate 4 GM in Sodium Chloride 0.9% 250 ML 250 ML IVPB SCH (16:00)
--- NOTE | 2019-07-04 16:04 | HP ---
PRIMARY CARE PHYSICIAN: Ms. Phyllis Darling. CHIEF COMPLAINT: Fall and generalized weakness. HISTORY OF PRESENT ILLNESS: A 69-year-old female with known history of rheumatoid arthritis, on prednisone and leflunomide, present admission for GI bleeding from peptic ulcer, status post EGD and blood transfusion, chronic debilitation, who was admitted on transfer from [facility] for further evaluation and treatment of presumed septic shock. The patient reportedly had nausea, vomiting, and frequent loose stools 3 days ago, which subsided spontaneously. However, She reported generalized weakness and decreased oral intake subsequently. Yesterday, she reportedly fell in her bathroom and was unable to get up. She was found earlier this morning by daughter and was subsequently brought to the hospital in [place]. She has no memory of events leading to the fall. When EMS arrived to the patient's house, she was found to be hypotensive with systolic blood pressures in 70s, tachycardic with heart rate in 120s, tachypneic and febrile. She was subsequently taken to [facility], where she was treated with IV fluids and antibiotics as well as potassium chloride and subsequently transferred over here for further evaluation and treatment. Evaluation there in [place] showed the patient had elevated lactic acid of 5.4, as well as mild elevation in troponin. There was some concern about mental status change, but the patient was oriented at least to person and place during my visit, though she had some memory lapses. She denied chest pain, dysuria, palpitations, headache, focal weakness, or worsening leg swelling. She admitted to chronic cough, which has not changed. No further nausea, vomiting, or diarrhea since the resolution of recent episode. She reported black stool during recent diarrhea illness, but denied hematemesis, or hematochezia. PAST MEDICAL HISTORY: 1. Rheumatoid arthritis, on chronic steroid and leflunomide. 2. Chronic pain syndrome. 3. COPD. 4. Chronic debility. 5. Peptic ulcer disease. PAST SURGICAL HISTORY: Recent EGD and colonoscopy. SOCIAL HISTORY: The patient lives with daughter. She is a former smoker. She continues to smoke about one pack of cigarette daily. She denied alcohol or recreational drug use. She has smoked for more than 25 years. FAMILY HISTORY: Reviewed, but noncontributory. ALLERGIES: CODEINE. HOME MEDICATIONS: 1. Leflunomide 10 mg p.o. daily. 2. Prednisone 10 mg p.o. daily. 3. Protonix 40 mg p.o. daily. 4. Flexeril 10 mg p.o. daily at bedtime. 5. Tramadol 50 mg p.o. q.6 p.r.n. for pain. REVIEW OF SYSTEMS: A 12-point review of system performed was negative other than pertinent positives and negatives included in the history of present illness. PHYSICAL EXAMINATION: VITAL SIGNS: Most recent vitals showed BP 103/65, pulse 121, respiratory rate 27, temperature 98.3, SpO2 96% on 2 L nasal cannula. GENERAL: Thin elderly female, in mild distress. Afebrile, anicteric, acyanotic. HEENT: Normocephalic, atraumatic. Pupils are equal and reacting to light. Oral mucosa is moist. NECK: Supple with mild tenderness. Range of motion is preserved. There is no obvious masses, lymphadenopathy, or JVD appreciated. Cardiovascular: Regular rhythm, but tachycardic. No obvious murmur was appreciated. RESPIRATORY: Coarse crackles in both lung taylor noted. Work of breathing is mildly increased. No obvious rhonchi appreciated. GI: Full, soft with mild epigastric tenderness. Bowel sound is normoactive. UROGENITAL: Puentes catheter is in place draining some urine. EXTREMITIES: Grossly normal looking, atraumatic, with no obvious erythema, edema, or cyanosis. CONVOLUTE TUBE WINDER: Conscious and alert, oriented to person and place at least. Memory lapse is noted. Cranial nerves 2 through 12 are grossly intact. The patient moves all extremities. DIAGNOSTIC DATA: CBC today showed WBC count of 39.3, hemoglobin of 10.8, MCV of 73.1, platelet of 165. Of note, the patient had a hemoglobin of 13.3 on June 27. CMP earlier today showed sodium 140, potassium 2.9, chloride 106, CO2 of 23, BUN 22, creatinine 1.17. Glucose 91, calcium 7.4, total bilirubin 1.3, AST 121, ALT 33, alkaline phosphatase 105, total protein 4.3, albumin 2.5, globulin 1.8. Of note, creatinine was 0.6 on June 26, 2019. Lactic acid is 5.3. Cardiac markers showed BNP 769 with initial troponin of 0.37 and initial CK-MB of 45.1. Initial CK, however was markedly elevated at 2987. Serum magnesium is 1.3. Urinalysis showed yellow hazy urine with pH of 6.5, specific gravity of 1.02. Urine protein more than 300 mg/dL, urine glucose 100 mg/dL, trace ketones, large blood, moderate bilirubin. Nitrite was negative, as well as leukocyte esterase. Urine rbc 0-3 and a urine wbc is none. EKG x2 showed sinus tachycardia with rate around [address] and T-wave changes. Chest x-ray performed on presentation at [facility] showed prominent interstitial linear markings noted throughout both lungs with blunting of the right costophrenic angle suggestive of acute vascular congestion or diffuse interstitial edema or pneumonitis. CT scan of the cervical spine showed no acute fracture or facet dislocation. Multilevel cervical spondylosis as well as bilateral bullous changes in the apices of both lungs noted with a small right apical scar. ASSESSMENT: 1. Shock: Most likely due to sepsis with possible contribution from adrenal insufficiency. The patient is an immunocompromised host. 2. Septic shock: The patient is an immunocompromised host, on chronic immunosuppression with leflunomide and steroid for rheumatoid arthritis. 3. Rhabdomyolysis given elevated CK. 4. Acute kidney injury with creatinine going up from 0.6 to 1.17 in 7 days. 5. Elevated troponin: Acute myocardial infarction versus demand ischemia from sepsis. 6. Acute blood loss anemia: The patient has prior history of gastrointestinal bleeding requiring multiple packed red blood cell transfusion during recent hospitalization and found to have peptic ulcer disease. Gastrointestinal bleeding is a concern. 7. Acute heart failure: Etiology is unclear. Fluid resuscitation may be contributory though the patient had elevated troponin and BMP prior to fluid resuscitation. 8. Syncopal episode. Etiology is unclear. Hypotension may have been contributory. 9. Recent gastroenteritis with nausea, vomiting, and diarrhea: Subsided. 10. Hypokalemia: Most likely due to recent diarrhea illness with possible contribution from hypomagnesemia. 11. Acute encephalopathy: Most likely due to hypotension and sepsis. 12. Acute neck pain: Related to fall. CT scan of the cervical spine showed no acute fracture. 13. Hypomagnesemia. 14. Rheumatoid arthritis, on chronic immunosuppression with steroid and leflunomide. 15. Recent gastric ulcer, on treatment with Protonix. 16. Lactic acidosis: Due to shock. 17. Abnormal liver function test: Most likely related to circulatory shock. 18. Chronic hypoalbuminemia. 19. Chronic debilitation. PLAN: 1. We will give patient 40 mg of Solu-Medrol IV start for possible adrenal insufficiency. We will also get cortisol level. 2. We will start the patient on broad-spectrum antibiotics with vancomycin, Zosyn, and levofloxacin. 3. We will continue Levophed and wean as tolerated. 4. We will back off on IV fluid given bilateral crackles. 5. We will also provide bronchodilators and steroids for possible chronic obstructive pulmonary disease exacerbation. 6. We will not be doing anticoagulation and antiplatelet given history of recent gastrointestinal bleeding and acute drop in hemoglobin. 7. We will consult Pulmonary and Critical Care as well as Cardiology to help in the management of this patient. 8. This patient is critically ill with guarded prognosis. 9. Code status full code. Children are the surrogate decision makers. 10. It is anticipated the patient will be hospitalized for more than 3 midnights. Further treatment and recommendation to follow depending on results of other diagnostic test and hospital course. Job ID: [id number]
[2019-07-04] MEDS ORDERED: Vancomycin HCl 500 MG in Sodium Chloride 0.9% 100 ML IVPB SCH (16:15)
[2019-07-04] MEDS: Lactated Ringer's 1,000 ML IV SCH (17:42)
[2019-07-04] MEDS: Piperacillin/Tazobactam 4.5 GM in Sodium Chloride 0.9% 100 ML IVPB SCH (18:06)
[2019-07-04] MEDS: Sodium Chloride 0.9% 1,000 ML IV SCH (18:07)
[2019-07-04 19:15] LABS: Lactic Acid 2.2 mmol/L (0.5-2.2)
[2019-07-04 19:35] LABS: CKMB 48.9 ng/mL (0-6.6)
[2019-07-04] MEDS: HYDROcodone/Acetaminophen 5/325 mg Tablet PO PRN (20:39)
[2019-07-04] MEDS ORDERED: Vancomycin HCl 1 GM in Sodium Chloride 0.9% 250 ML 250 ML IVPB SCH (21:00)
[2019-07-04 21:36] LABS: Hemoglobin 11.3 g/dL (12.0-16.0)
[2019-07-04] MEDS ORDERED: Melatonin 3 MG TAB PO PRN (22:06)
--- NOTE | 2019-07-05 00:01 | CON ---
DATE OF CONSULTATION: HISTORY OF PRESENT ILLNESS: Ameena Parrish is a 69-year-old female, who says she has been having diarrhea since Saturday. She got up at all the night. Last night to go to the bathroom, was found down on the floor this morning by family, transferred here, and admitted to the ICU. She has a history of rheumatoid arthritis and is on immunosuppressive drugs. She also has had some nausea and vomiting leading up to this. She says she is feeling better. PAST MEDICAL HISTORY: Remarkable for, 1. Rheumatoid arthritis. 2. History of COPD. 3. History of ulcer disease. SOCIAL HISTORY: Former smoker up to two and half packs a day. She says down to 2 packs every two and half days now. She is not a daily drinker. ALLERGIES: SHE REPORTS ALLERGIES TO CODEINE. FAMILY HISTORY: Negative for lung disease in early age. MEDICATIONS: Prior to admission, she was on: 1. Leflunomide. 2. Prednisone. 3. Protonix. 4. Flexeril. 5. Tramadol. REVIEW OF SYSTEMS: 10-point review of system is otherwise negative. She denies having any shortness of breath but does admit to abdominal discomfort with palpation of her abdomen. PHYSICAL EXAMINATION: VITAL SIGNS: Heart rate is 110, blood pressure 100/64, respiratory rates in the 20s to low 30s, and oximetry is 96. HEAD AND NECK: Unremarkable. She is very cachectic. She is 4 feet 9 inches and weighs 80 pounds. LUNGS: Remarkable for distant breath sounds. She does not have any wheezes. HEART: Regular rhythm. S1 and S2 are normal. Has grade 1 to 2/6 systolic murmur. ABDOMEN: Soft and minimally tender. She does not have any guarding. DIAGNOSTIC STUDIES: Chest x-ray shows an increase in interstitial markings, but this is unchanged compared to old films. LABORATORY DATA: Hemoglobin was 11.8. Lactate level was 3 at noon. White count was 39,000, hemoglobin 11.8, and platelet count 165,000. I am assuming this was done in [place]. Creatinine was 1.17. Potassium is 2.9. Troponin was 0.3. BNP was 769. IMPRESSION: Nausea, vomiting, diarrhea with a recent history of ulcers and colon polyp, has been worried about pseudomembranous colitis. Obviously, she has a component of intravascular volume depletion, and she is being volume resuscitated. Directed antimicrobial therapy is recommended. From a standpoint of chronic obstructive pulmonary disease, she appears to be stable at this point in time. Job ID: [id number]
[2019-07-05] MEDS: Piperacillin/Tazobactam 4.5 GM in Sodium Chloride 0.9% 100 ML IVPB SCH ×3 (00:21→11:11)
[2019-07-05] MEDS: HYDROcodone/Acetaminophen 5/325 mg Tablet PO PRN ×4 (00:21→15:40)
[2019-07-05] MEDS: Sodium Chloride 0.9% 1,000 ML IV SCH ×2 (04:51→12:37)
[2019-07-05 06:19] LABS: Anion Gap 13 mmol/L (10-20); BUN (Urea Nitrogen) 19 mg/dL (9.8-20.1); Calc. Creatinine Clearance 46 mL/min (70-130); Calcium 7.5 mg/dL (7.8-10.44); Carbon Dioxide 16 mmol/L (23-31); Chloride 113 mmol/L (98-107); Estimated GFR-MDRD 87; Glucose 98 mg/dL (80-115); Magnesium 2.4 mg/dL (1.6-2.6); Potassium 4.3 mmol/L (3.5-5.1); Sodium 138 mmol/L (136-145)
[2019-07-05 06:28] LABS: White Blood Cell (WBC) Count 53.5 thou/uL (4.8-10.8)
[2019-07-05 06:30] LABS: CRP (Inflammatory) 30.96 mg/dL (= or < 0.5)
[2019-07-05 07:08] LABS: Anisocytosis MODERATE=16-30 cells (100X) (0-5/hpf); Band 36 % (5-11); Crenated RBC SLIGHT = 1-5 cells (100X) (None Seen); Elliptocytes SLIGHT = 2-5 cells (100X) (0-1/hpf); Hemoglobin 10.7 g/dL (12.0-16.0); Lymphocytes 4 % (21-51); MDiff Complete? YES; Mean Corpuscular HGB CONC 29.9 g/dL (32.0-36.0); Mean Corpuscular Hemoglobin 22.8 pg (27.0-31.0); Mean Corpuscular Volume 76.3 fL (78.0-98.0); Mean Platelet Volume 7.1 fL (7.4-10.4); Monocytes 2 % (0-10); Neutrophil 58 % (42-75); Platelet Count 186 thou/uL (130-400); Platelet Morphology Comment Appears Adequate; RBC Distribution Width 26.3 % (11.5-14.5)
[2019-07-05] MEDS ORDERED: PHENYLEPHRINE-NS 100 MCG/ML 10 ML SYRINGE ONE (07:47)
[2019-07-05] MEDS ORDERED: Lidocaine 1% PF 5 ML VIAL ONE (07:47)
[2019-07-05] MEDS ORDERED: Rocuronium Bromide 10 MG/ML (10ML VIAL) ONE (07:47)
[2019-07-05] MEDS ORDERED: PROPOFOL 200 MG/20 ML VIAL ONE (07:47)
[2019-07-05] MEDS: Ondansetron PF 4 MG/2 ML Vial IVP PRN (08:09)
[2019-07-05] MEDS: predniSONE 20 MG TAB PO SCH (08:10)
--- NOTE | 2019-07-05 11:13 | CT ---
CT OF CHEST AND ABDOMEN AND PELVIS: Date: 07/05/19 COMPARISON: None. HISTORY: Possible infection, generalized pain, elevated white blood cell count, septic shock. TECHNIQUE: Axial CT imaging at 5 mm intervals from thoracic inlet through pubic symphysis with IV and oral contr ast. Coronal and sagittal reformatted imaging obtained. FINDINGS: There is a hypodense nodule within the right lobe of the thyroid gland measuring 9 mm. No axillary ly mphadenopathy is seen. No hilar or mediastinal lymphadenopathy is noted. Small/moderate size bilateral pleural effusions are noted, right larger than left. There is associated partial atelectasis of bilateral lower lobes. No pneumothorax is seen on either s magdalena. There are patchy peripheral areas of ground-glass opacity noted within bilateral upper lobes, left gr eater than right, suggesting nonspecific alveolitis. There is subpleural emphysematous change noted b ilaterally with an upper lobe/apical predominance. There is severe degenerative change involving the glenohumeral joint on the right. There is a right s houlder effusion with enhancement of the synovium. No free intraperitoneal air is seen. Mild periportal edema is noted. There is small volume free fluid adjacent to the liver. No focal live r lesion is seen. The gallbladder is mildly distended. The spleen is unremarkable. The pancreas and adrenal glands demonstrate no acute findings. Multiple small hypodensities are noted within both kidneys, too small to characterize, likely representing cysts. There is small volume diffuse ascites and there is hazy edematous change throughout the mesenteric fa t of the abdomen/pelvis. A Puentes catheter is present within the urinary bladder, slightly low lying approaching the urethra. There is a segment of the sigmoid colon demonstrating significant wall thickening suspicious for sigm oid colitis. No evidence for bowel obstruction. Appendix is unremarkable. The thick-walled segment of sigmoid colo n measures approximately 10.0 cm in length. There is extensive atherosclerotic calcification of the abdominal aorta and its branches. No discrete lymphadenopathy of the abdomen or pelvis. Osseous structures of the chest, abdomen, and pelvis demonstrate no acute traumatic abnormality. Ther e is multilevel degenerative change within the spine, primarily affecting the lower thoracic spine an d the lower lumbar spine. No discrete lytic or blastic bone lesion. Stranding of the subcutaneous fat suggests diffuse anasarca. IMPRESSION: 1. The sigmoid colon demonstrates prominent wall thickening involving a 10.0 cm length of the sigmoi d colon suggesting nonspecific colitis. This could be inflammatory/infectious or ischemic in nature. 2. Bilateral pleural effusions with areas of ground-glass opacity suggesting possible infection or e edwin. 3. No free intraperitoneal air or evidence of bowel obstruction. No evidence for appendicitis. 4. Anasarca. 5. Mild gallbladder distention. 6. There is prominent degenerative change involving the right shoulder joint. There is significant r ight shoulder joint effusion and enhancement of the synovium. This could all be related to prominent degenerative change, but septic arthritis in the proper clinical setting cannot be excluded. Clinical correlation is essential. CODE T. POS: OFF
--- NOTE | 2019-07-05 11:32 | PDOC.HOSPP ---
- Subjective Encounter Date: 07/05/19 Encounter Time: 11:32 Subjective: 69 y/o female with rheumatoid arthritis on chronic steroid and lefluonamide admitted with septic shock. Fever has subsided. complaining of bilateral shoulder pain. having frequent loose stools. - Objective Vital Signs & Weight: Vital Signs (12 hours) Temp Pulse Resp Pulse Ox 07/05/19 11:00 98.0 F 07/05/19 08:00 92 L 07/05/19 07:28 99 18 100 07/05/19 07:00 97.9 F 07/05/19 04:00 98.1 F 07/05/19 00:22 102 H 23 H 99 07/05/19 00:00 98.7 F Weight Weight 82 lb 7.246 oz Most Recent Monitor Data Heart Rate from ECG 107 NIBP 96/53 NIBP BP-Mean 61 Respiration from ECG 25 SpO2 94 I&O: 07/04/19 07/05/19 07/06/19 06:59 06:59 06:59 Intake Total 2367.8 Output Total 965 145 Balance 1402.8 -145 Result Diagrams: 07/05/19 05:24 07/05/19 05:24 Additional Labs: Accuchecks 07/05/19 07/04/19 05:28 21:28 POC Glucose 100 111 H Hospitalist ROS - Medication Medications: Active Medications Generic Name Dose Route Start Last Admin Trade Name Freq PRN Reason Stop Dose Admin Hydrocodone Bitart/Acetaminophen 1 tab 07/04/19 13:54 07/05/19 08:10 Blaine 5/325 PO 1 tab Q4H PRN Administration Moderate Pain (4-6) Albuterol/Ipratropium 3 ml 07/04/19 19:00 07/05/19 07:28 Duoneb NEB 3 ml [id number] OLINDA Administration Piperacillin Sod/Tazobactam 100 mls @ 200 mls/hr 07/04/19 18:00 07/05/19 11: 11 Sod 4.5 gm/ Sodium Chloride IVPB 100 mls Q6HR OLINDA Administration Levofloxacin 750 mg/ Device 150 mls @ 100 mls/hr 07/04/19 15:00 07/04/19 16: 25 IVPB 150 mls 1500 OLINDA Administration Lactated Ringer's 1,000 mls @ 50 mls/hr 07/04/19 16:00 07/04/19 17:42 Lactated Ringer's IV Not Given .Q20H OLINDA Sodium Chloride 1,000 mls @ 100 mls/hr 07/04/19 16:45 07/05/19 04:51 Normal Saline 0.9% IV 1,000 mls .Q10H OLINDA Administration Melatonin 3 mg 07/04/19 22:06 07/04/19 22:44 Melatonin PO 3 mg HS PRN Administration Insomnia Ondansetron HCl 4 mg 07/04/19 13:54 07/05/19 08:09 Zofran IVP 4 mg Q6H PRN Administration Nausea/Vomiting Prednisone 40 mg 07/05/19 08:00 07/05/19 08:10 Prednisone PO 40 mg QAM-WM OLINDA Administration Vancomycin HCl 250 mg 07/05/19 12:00 07/05/19 11:22 First Vancomycin PO 250 mg Q6HR OLINDA Administration - Exam General Appearance: awake alert General - other findings: thin elderly female Eye: anicteric sclera ENT: normocephalic atraumatic, moist mucosa Neck: supple, symmetric Heart: RRR Respiratory: no wheezes, no ronchi, no tachypnea Respiratory - other findings: fair air entry with crackles both lung field Gastrointestinal: soft, non-distended Gastrointestinal - other findings: marked tenderness Extremities: no clubbing, no edema Extremeties - other findings: bilateral shoulder joint effusion and tenderness Neurological: CN's grossly intact Musculoskeletal: diffuse muscle atrophy Psychiatric: normal affect, A&O x 3 Hosp A/P (1) Septic shock Code(s): A41.9 - SEPSIS, UNSPECIFIED ORGANISM; R65.21 - SEVERE SEPSIS WITH SEPTIC SHOCK Status: Acute (2) HERMINIA (acute kidney injury) Code(s): N17.9 - ACUTE KIDNEY FAILURE, UNSPECIFIED Status: Acute (3) Rhabdomyolysis Code(s): M62.82 - RHABDOMYOLYSIS Status: Acute (4) Syncope and collapse Code(s): R55 - SYNCOPE AND COLLAPSE Status: Acute (5) Hypokalemia Code(s): E87.6 - HYPOKALEMIA Status: Acute (6) Effusion of joint of both shoulders Code(s): M25.411 - EFFUSION, RIGHT SHOULDER; M25.412 - EFFUSION, LEFT SHOULDER Status: Acute (7) Abdominal tenderness, generalized Code(s): R10.817 - GENERALIZED ABDOMINAL TENDERNESS Status: Acute (8) PUD (peptic ulcer disease) Code(s): K27.9 - PEPTIC ULC, SITE UNSP, UNSP AC OR CHR, W/O HEMOR OR PERF Status: Acute (9) Frequent loose stools Code(s): R19.7 - DIARRHEA, UNSPECIFIED Status: Acute (10) Leukemoid reaction Code(s): D72.823 - LEUKEMOID REACTION Status: Acute (11) Tobacco abuse disorder Code(s): Z72.0 - TOBACCO USE Status: Acute (12) COPD exacerbation Code(s): J44.1 - CHRONIC OBSTRUCTIVE PULMONARY DISEASE W (ACUTE) EXACERBATION Status: Acute (13) Metabolic acidosis Code(s): E87.2 - ACIDOSIS Status: Acute (14) Elevated troponin Code(s): R74.8 - ABNORMAL LEVELS OF OTHER SERUM ENZYMES Status: Acute (15) Hypomagnesemia Code(s): E83.42 - HYPOMAGNESEMIA Status: Acute - Plan Continue broad spectrum antibiotics. start oral vancomycin for possible C dif. substitute NS with LR Get C dif tossin assay. get CT chest/abd/peklvis Consult Gen surg and ortho Discussed code status with patient and [place]. she want s to be DNR and daughter will be the surrgogate decision maker replete electrolytes and monitor.
[2019-07-05] MEDS ORDERED: Vancomycin HCl 25 MG/ML Oral PO SCH (12:00)
[2019-07-05] MEDS: Lactated Ringer's 1,000 ML IV SCH ×3 (12:38→22:19)
[2019-07-05] MEDS ORDERED: ISOVUE-370 76%-LOCM 1 ML ONE (13:01)
[2019-07-05 13:34] LABS: Bilirubin Negative (Negative); Blood, Urine 3+ (Negative); Clarity Clear (Clear); Glucose, Urine (Dipstick) Normal (Negative); Leukocyte Negative Leu/uL (Negative); Nitrite Negative (Negative); Protein, Urine (Dipstick) Negative (Neg-Trace); RBC/HPF Greater than 50 HPF (0-3); Squamous Epithelial 0-3 HPF (0-3); Urobilinogen Normal mg/dL (Less than 2)
[2019-07-05 13:44] LABS: Bacteria/HPF 2+ HPF (None Seen)
[2019-07-05 13:45] LABS: Urine Culture Reflex Yes Yes
[2019-07-05 15:29] LABS: Vancomycin, Random 7.5 ug/mL (See Comment)
--- NOTE | 2019-07-05 15:40 | PRG ---
DATE OF SERVICE: 07/05/2019 SUBJECTIVE: Ameena Parrish remains hemodynamically stable and feels reasonably well, but still having a little abdominal discomfort and still having significant diarrhea. She is growing enterobacter out of 1 blood culture from [place] and gram-positive cocci and gram-negative rods out of the other blood culture. Her C. diff so far is negative. OBJECTIVE: LUNGS: Clear. HEART: Regular rhythm. ABDOMEN: Soft. IMPRESSION AND PLAN: 1. Rheumatoid arthritis. 2. Diarrhea. 3. Bacteremia with enterobacter and possibly two other organisms. I would wonder about diverticulitis in her. Given that she is chronically on prednisone and Humira, her abdominal exam becomes less reliable. Her white count went up to over 50,[address] of her chest, abdomen, and pelvis was done, which shows a haziness in her upper lobes. She has atelectasis in her lower lobes. There is a tiny amount of ascites. The sigmoid colon is thick, suggestive of colitis per the report. I have consulted Gastroenterology and I believe the hospitalist consulted General Surgery. Obviously, surgery in this 80 pounds woman is the last option. We discussed end of life issues. She is willing to be mechanically ventilated for a few days, but only for few days. The only thing she was adamant about is that she never have a chest tube placed. She really did not explain to me why she was focused on chest tubes. At this point in time, I do not feel bronchoscopies indicated. I did broader antimicrobial coverage today. Appreciate, the input from Gastroenterology and General Surgery. She needs to remain in the critical care unit in my opinion. Job ID: [id number]
[2019-07-05] MEDS ORDERED: Vancomycin HCl 750 MG in Sodium Chloride 0.9% 250 ML 250 ML IVPB SCH (16:00)
[2019-07-05] MEDS ORDERED: Acetaminophen 1,000 MG in Premix Bag 1 BAG IVPB PRN (16:03)
[2019-07-05] MEDS ORDERED: Acetaminophen 1,000 MG in Premix Bag 1 BAG IVPB SCH (16:15)
--- NOTE | 2019-07-05 16:45 | HP ---
HISTORY OF PRESENT ILLNESS: Ameena Parrish, 69-year-old female, who had recently hospitalized just over a week ago discharged. She was re-hospitalized yesterday. She was found down at home after having 3 days of diarrhea, nausea, and abdominal pain. She has been admitted to ICU for sepsis. The patient was recently hospitalized 06/25/2019 to 06/27/2019. She insisted on being discharged. She was admitted to that hospitalization for workup of anemia and malaise. EGD and colonoscopy performed revealed a chronic gastric ulcer without bleeding, and she was told to stop her meloxicam. She has had a colonoscopy and polypectomy. She has a history rheumatoid arthritis, chronic steroids, chronic intestinal blood loss, chronic NSAID use, chronic pain, ongoing tobacco use, COPD, progressive weight loss during that hospitalization. The patient desires DNR status, but this is recently converted back to full code. On admission, from the ER, the patient's white count was 39,000, today is 53,000, and hemoglobin 10.7. Her CO2 is 16 today, compared to yesterday's 23. The patient reports abdominal pain, and on exam, she is very tender with diffuse guarding. ALLERGIES: NONE. HABITS: Tobacco one-third to one-half pack per day. Alcohol rarely. MEDICATIONS: Outpatient Flexeril, tramadol, prednisone, Protonix, leflunomide. PAST SURGICAL HISTORY: Recent colonoscopy and EGD. PAST MEDICAL HISTORY: Rheumatoid arthritis, chronic steroid use, chronic pain, COPD, tobacco abuse recently diagnosed peptic ulcer. IMAGING STUDIES: CAT scan on admission reveals free fluid, 10 cm segment of the sigmoid colon, inflamed, thickened wall. Chest, abdomen, and pelvis, 07/05/2019 at 0600 hours, extensive arteriosclerosis, aortoiliacs mesenteric edema. C. diff studies negative, antigen and toxin, 07/05/2019. PHYSICAL EXAMINATION: VITAL SIGNS: Height 4 feet 9 inches, weight 82 pounds, respiratory rate, blood pressure 156/75. HEAD, EYES, EARS, NOSE, AND THROAT: Unremarkable. LUNGS: Clear to auscultation. Prolonged expiration. No wheezing. Mildly labored respirations. CARDIAC: Regular rate and rhythm, 110 heart rate. ABDOMEN: Occasional bowel sounds. Diffuse tenderness with guarding. EXTREMITIES: Unremarkable. ASSESSMENT AND PLAN: 1. Abdominal pain of uncertain etiology. CAT scan results noted. Leukocytosis, progressive with progressive acidosis. She has long history of tobacco abuse and arteriosclerosis noted on CAT scan. I am concerned about bowel ischemia. We would recommend laparotomy. The patient given options of palliative care, nonoperative therapy, but she wants. She agrees with diagnostic laparotomy and indicated procedure. She understands that she maybe on the ventilator postoperatively. She does not want a chest tube. I have discussed this with the patient and her relative, whom she lives with. I have discussed with Dr. Yoon. We will plan this today. 2. Rheumatoid arthritis. 3. Chronic obstructive pulmonary disease. 4. Tobacco abuse. 5. Arteriosclerosis. Job ID: [id number]
[2019-07-05 16:54] LABS: RBC Count-Automated (BF) 8104 /cumm; WBC/Nucleated-Auto (BF) 183 uL
[2019-07-05 17:29] LABS: BF Color Pink; Body Fluid Source Synovial Fluid; Clarity Hazy (Clear); Tube # EDTA
[2019-07-05 17:33] LABS: BF Segmented Neutrophils 21 %; Cell Count Non Hematic 73 %; Lymphocytes 6 %
[2019-07-05] MEDS: Cefepime 1 GM in Sodium Chloride 0.9% 100 ML IVPB SCH (20:19)
--- NOTE | 2019-07-05 22:04 | CON ---
DATE OF CONSULTATION: 07/05/2019 HISTORY OF PRESENT ILLNESS: Ms. Parrish is a 69-year-old female who has history of rheumatoid arthritis on chronic prednisone. The patient had some GI problems including GI bleeding and diarrhea. She has had bilateral shoulder pain for many years. She had an episode of syncope and was initially taken to [facility] with presumed septic shock diagnosis. The patient has been on antibiotics. She complains of chronic shoulder pain and I was consulted to make sure that there was no infection into the shoulders. The patient has not had any erythema around the shoulder regions and has had no trauma to her shoulders. PHYSICAL EXAMINATION: Both shoulders have pain with range of motion. Her range of motion is restricted. There is fluid in the right shoulder. The left shoulder has very little swelling. PLAN: After prepping the anterior aspect of both shoulders, each shoulder joint was aspirated. The right shoulder had relatively clear with just blood tinged normal-appearing synovial fluid, but the fluid that was collected will be sent for Gram stain, cell count, culture and sensitivity. Needle was placed into the left shoulder and no fluid was able to be obtained. It does not appear that the shoulder is a part of any infectious type process, but certainly, the test performed on the right shoulder fluid will give more definitive answers. Job ID: [id number]
[2019-07-05] MEDS ORDERED: Fentanyl 100 MCG/2 ML VIAL ONE (22:23)
[2019-07-05] MEDS ORDERED: Phenylephrine HCL 10 MG/ML VIAL ONE (22:23)
[2019-07-05] MEDS ORDERED: HYDROmorphone 0.5 MG/0.5 ML SYRINGE ONE (22:23)
--- NOTE | 2019-07-05 22:32 | CON ---
DATE OF CONSULTATION: HISTORY OF PRESENT ILLNESS: The patient is a 69-year-old woman, with a history of COPD, who presented with abdominal discomfort and was noted to have elevated cardiac enzymes. The patient with no previous cardiac history. The patient denies having any history of chest discomfort. The patient presents with a several-day history of abdominal discomfort. She denies having any palpitations. PAST MEDICAL HISTORY: 1. COPD. 2. Rheumatoid arthritis. 3. Peptic ulcer disease. PAST SURGICAL HISTORY: None. SOCIAL HISTORY: Long history of tobacco abuse. FAMILY HISTORY: No strong family history of heart disease. ALLERGIES: CODEINE. MEDICATIONS: See nursing list. PHYSICAL EXAMINATION: GENERAL: This is a thin woman, in mild distress. VITAL SIGNS: Blood pressure was 156/75. NECK: Showed no jugular venous distention. LUNGS: Coarse breath sounds bilateral. HEART: Regular rate and rhythm. Normal S1, S2. ABDOMEN: Distended. EXTREMITIES: Show trace edema. LABORATORY DATA: Sodium 138, potassium 4.3, chloride 113, bicarbonate 16, BUN 19, creatinine 0.7. Her white blood cell count was 53.5, hemoglobin 10.7, hematocrit 35.9, and her platelets were 186. Her troponin level was 0.41. IMPRESSION: 1. Acute abdomen. 2. Elevated troponin, type 2 myocardial infarction secondary to demand ischemia. 3. Chronic obstructive pulmonary disease. 4. Cachexia. PLAN: This patient is being taken to the operating room. I will check the patient's echocardiogram. I will follow this patient with you through her hospitalization. TIME SPENT: 30 minutes. Job ID: [id number] MTDD
[2019-07-05] MEDS ORDERED: SUGAMMADEX SODIUM 500 MG/5 ML VIAL ONE (23:13)
[2019-07-05] MEDS ORDERED: Ventilator Sedation Protocol 1 EACH FS SCH (23:30)
[2019-07-05] MEDS ORDERED: Propofol 1,000 MG/100 ML VIAL IV ONE (23:38)
--- NOTE | 2019-07-05 23:57 | RAD ---
PORTABLE CHEST ONE VIEW: Date: 07-05-19 Time: 11:33 p.m. History: Chest pain. FINDINGS/IMPRESSION: Comparison is made with exam from previous day. There has been interval placement of an endotracheal tube with the tip at the level of the loreto. He art size is normal. The aorta is tortuous. There is a nasogastric tube which can be traced into the s tomach with tip excluded from the film. There is pulmonary vascular congestion. There is small right pleural effusion. No pneumothoraces are seen. POS: [facility]
[2019-07-06 00:21] LABS: Actual Bicarbonate (HCO3a) 16.9 mEq/L (22-28); Base Excess (BEa) -7.4 mEq/L (-2.0 to +3.0); CO2 Tension 30.5 mmHg (35.0-45.0); Calcium, Ionized 1.11 mmol/L (1.12-1.30); Carboxyhemoglobin (COHb) 1.2 gm% (0.0-3.0); Hemoglobin (Hb) 11.4 g/dL (12.0-16.0); O2 Tension (PaO2) 86.6 mmHg (> 70.0); Potassium - ABG Lab 3.31 mmol/L (3.70-5.30); pH, Arterial 7.36 (7.35-7.45)
[2019-07-06] MEDS ORDERED: Lorazepam 2 MG/ML VIAL SLOW IVP PRN (00:21)
[2019-07-06] MEDS ORDERED: Propofol BOLUS 1,000 MG/100 ML VIAL IV PRN (00:21)
[2019-07-06] MEDS ORDERED: Fentanyl BOLUS 250 ML IVPB PRN (00:21)
[2019-07-06] MEDS ORDERED: DISCONTINUE PREVIOUS NARCOTIC PAIN MEDICATIONS AND BENZODIAZEPINES FS SCH (00:21)
[2019-07-06] MEDS ORDERED: Propofol 1,000 MG/100 ML VIAL IV PRN (00:21)
[2019-07-06] MEDS ORDERED: fentaNYL Citrate/PF 2,000 MCG in Sodium Chloride 0.9% 60 ML IV SCH (00:21)
[2019-07-06 00:23] LABS: ALV-art Gradient 124.825 (0-20); Puncture Site RBRACH
[2019-07-06] MEDS: Piperacillin/Tazobactam 3.375 GM in Sodium Chloride 0.9% 100 ML IVPB SCH ×4 (00:25→18:00)
[2019-07-06] MEDS: Morphine 2 MG/ML SYRINGE SLOW IVP PRN ×2 (02:11→03:30)
--- NOTE | 2019-07-06 02:15 | OP ---
DATE OF PROCEDURE: 07/05/2019 PREOPERATIVE DIAGNOSES: Abdominal pain, leukocytosis, ischemic bowel. POSTOPERATIVE DIAGNOSIS: Segmental sigmoid colitis. ANESTHESIA: General. PROCEDURES PERFORMED: Exploratory laparotomy, evacuation of clear ascites. FINDINGS: 10-12 cm segment of sigmoid colon. There is very boggy, thickened wall without abscess, without ischemia. Small bowel normal. Ileum normal. Few adhesions of omentum into the pelvis. DESCRIPTION OF PROCEDURE: The patient was taken to the operating room under general anesthesia, abdomen was prepared with ChloraPrep and draped in routine fashion. A midline incision was made centered about the umbilicus, carried down to skin and subcutaneous tissue and abdominal cavity sharply. There were omental adhesions in the pelvis, taken out with cautery to allow evaluation of the viscera. Small bowel was normal, not dilated. There was some clear ascites evacuated. Right colon, transverse, descending, sigmoid colon were normal except for a 10-12 cm segment of sigmoid colon that had a very thick wall edematous segment. There was no abscess. No discrete diverticulitis, but more of an infectious colitis. Decision was made not to remove this as this may reverse medically. She may need a colostomy in the future. Continue medical management. Sponge and needle counts were correct. Midline fascia closed with continuous suture of #1 PDS, skin with galo. Sterile dressing applied. Job ID: [id number]
--- NOTE | 2019-07-06 03:43 | CON ---
DATE OF CONSULTATION: 07/05/2019 REASON FOR CONSULTATION: Diarrhea, enterobacter bacteremia, abdominal pain. CONSULTING PROVIDER: Dr. Bebo Yoon. HISTORY OF PRESENT ILLNESS: The patient is a 69-year-old female with past medical history of chronic pain, COPD, chronic debility, peptic ulcer disease, and rheumatoid arthritis, on prednisone/leflunomide who was recently admitted to the hospital for anemia and increased shortness of breath. During the course of her prior hospitalization, she underwent both EGD and colonoscopy for evaluation of this anemia and was noted to have a nonbleeding gastric ulcer that was not intervened upon, but felt to be due to concurrent administration of NSAIDs and steroids. During the colonoscopy, it did reveal a large flat polyp that could not be intervened upon due to its increased size. During the course of that hospitalization, she states that she continued to have increased abdominal pain and diarrhea prior to discharge, but "I lied to my doctors so that I could go home." She falsely stated that she no longer had any abdominal pain or diarrhea in order to go home. Shortly after going home, she had worsening of her diarrhea and ultimately had what appeared to be a syncopal type event where she found herself down in the bathroom with inability to rise to a standing position. EMS was subsequently called and she was transferred back to [facility] for further evaluation. She states that her diarrhea was present all day Saturday and associated with increased suprapubic abdominal pain characterized as "just pain" that would radiate to the lower abdomen in the right lower and left lower quadrants and reached a severity of 10/10. The pain was worse with pressure to any area of her abdomen and better only with the use of narcotic pain medications during this hospitalization. She currently denies any nausea, vomiting, fevers, chills, dysuria, dysphagia, odynophagia, melena, hematemesis, or hematochezia. Of note, further workup of the patient's condition, she was noted to have positive blood cultures for enterobacter as well as significantly elevated white blood cell count of 53.5. REVIEW OF SYSTEMS: A 10-category review of systems was obtained with all responses negative except for the pertinent positives as listed in HPI. PAST MEDICAL HISTORY: As per HPI. PAST SURGICAL HISTORY: Hysterectomy, recent EGD and colonoscopy. FAMILY HISTORY: Denies any GI malignancies. SOCIAL HISTORY: Continues to smoke around one pack per day, but denies any alcohol or illicit drug use. OUTPATIENT MEDICATIONS: Reviewed. ALLERGIES: CODEINE. PHYSICAL EXAMINATION: VITAL SIGNS: Temperature 98.2, pulse 101, blood pressure 111/60, respiratory rate 27, saturating 97% on room air. GENERAL: The patient was lying in bed, in mild distress. Alert and oriented x3. HEENT: Normocephalic, atraumatic. NECK: Supple. No JVD or scleral icterus noted. CARDIOVASCULAR: Tachycardic rate, but regular rhythm. No discernible murmurs, gallops, or rubs. RESPIRATORY: Diminished breath sounds auscultated in all lung taylor, which may have been due to splinting. ABDOMEN: Hypoactive bowel sounds. Soft. Mild abdominal distention. Significant tenderness to palpation to both light and deep palpation in all abdominal quadrants. EXTREMITIES: No cyanosis, clubbing, or edema. LABORATORY DATA: CBC with a white blood cell count of 53.5, hemoglobin 10.7, hematocrit 35.9, platelets 186. Chemistry with a sodium of 138, potassium 4.3, chloride 113, CO2 of 16, BUN 19, creatinine 0.67, glucose 98. Blood cultures positive for enterobacter. C diff stool testing negative thus far, but fecal lactoferrin was positive. IMAGING DATA: CT of the chest, abdomen, and pelvis was obtained on July 05, 2019, which shows small to moderate bilateral pleural effusions, ground-glass opacities in the bilateral upper lobes, a small amount of free fluid adjacent to the liver as well as small volume ascites was seen. An area within the sigmoid colon was also demonstrating significant wall thickening suspicious for possible colitis, although there was no evidence of bowel obstruction and findings suggestive of diffuse anasarca. ASSESSMENT AND PLAN: The patient is a 69-year-old female with past medical history of rheumatoid arthritis, on chronic prednisone therapy, chronic pain, chronic obstructive pulmonary disease, and chronic debility, recently diagnosed with peptic ulcer disease and colonic polyp, presenting with a sepsis type picture with enterobacter bacteremia with unknown source at this time in addition to significant periumbilical abdominal pain and diarrhea. Abdominal pain/diarrhea. The patient was recently admitted to the hospital with complaints of anemia and subsequently underwent both EGD and colonoscopy with the findings of a gastric ulcer that was bland in appearance and had no high-risk stigmata of active or recent bleeding. During the colonoscopy, no significant findings were seen except for a large flat polyp within the right colon that was not removed secondary to its size and increased risk of perforation. The actual operative report for the colonoscopy is unavailable for review, but per mention, there was no other abnormality seen including abnormalities within the sigmoid colon. Given her increased diarrhea and possible thickening within the sigmoid colon, it is possible for diverticulitis contributing to enterobacter bacteremia. However, given her significantly elevated white blood cell count, significant exquisite tenderness to palpation in all abdominal quadrants, and acidosis noted on chemistry, perforation cannot be ruled out at this time nor can ischemic bowel be ruled out at this time. RECOMMENDATIONS: 1. Would continue with broad-spectrum antibiotics as you are doing for possible perforation and/or diverticulitis. 2. Would obtain infectious stool studies for possible infectious agent contributing to her current clinical picture. 3. Given her recent EGD and colonoscopy, further intraluminal evaluation is not necessarily indicated at this time. 4. Given the possibility of ischemic bowel, exploratory laparotomy could be considered. 5. Would consider other sources of enterobacter originating including pulmonary and/or urinary tract infection. 6. Given the negative C diff studies thus far, oral vancomycin could be potentially discontinued, although given her recent hospitalization and significant diarrhea with elevated white blood cell count, I think continue this for the time being and assessing for responses not unreasonable. 7. Pain control per primary team. We will continue to follow. Please call with any questions. Job ID: [id number]
[2019-07-06] MEDS: Lactated Ringer's 1,000 ML IV SCH ×3 (04:04→18:34)
[2019-07-06 04:35] LABS: White Blood Cell (WBC) Count 45.2 thou/uL (4.8-10.8)
[2019-07-06 04:49] LABS: ALT (SGPT) 62 U/L (8-55); AST (SGOT) 80 U/L (5-34); Albumin 2.4 g/dL (3.4-4.8); Alkaline Phosphatase 118 U/L (40-150); Anion Gap 11 mmol/L (10-20); BUN (Urea Nitrogen) 15 mg/dL (9.8-20.1); BUN/Creatinine Ratio 24.59; Bilirubin, Total 0.6 mg/dL (0.2-1.2); Calc. Creatinine Clearance 51 mL/min (70-130); Calcium 8.3 mg/dL (7.8-10.44); Carbon Dioxide 18 mmol/L (23-31); Chloride 110 mmol/L (98-107); Estimated GFR-MDRD Greater than 90; Globulin 2.1 g/dL (2.4-3.5); Phosphorus 3.1 mg/dL (2.3-4.7); Potassium 3.3 mmol/L (3.5-5.1); Protein, Total 4.5 g/dL (6.0-8.3); Sodium 136 mmol/L (136-145)
[2019-07-06 04:54] LABS: Troponin I 0.153 ng/mL (< 0.028)
[2019-07-06 05:05] LABS: Glucose 55 mg/dL (80-115)
[2019-07-06] MEDS ORDERED: Dextrose 50% Abboject 50 ML SYRINGE ONE (05:07)
[2019-07-06] MEDS ORDERED: Dextrose 5% in Water 1,000 ML IV PRN (05:44)
[2019-07-06] MEDS ORDERED: Dextrose 50% Abboject 50 ML SYRINGE IVP PRN (05:44)
[2019-07-06 05:49] LABS: Band 22 % (5-11); Burr Cells MODERATE= 6-15 cells (100X) (0-1/hpf); Lymphocytes 4 % (21-51); MDiff Complete? YES; Mean Corpuscular HGB CONC 29.5 g/dL (32.0-36.0); Mean Corpuscular Hemoglobin 22.6 pg (27.0-31.0); Mean Corpuscular Volume 76.5 fL (78.0-98.0); Mean Platelet Volume 7.4 fL (7.4-10.4); Monocytes 1 % (0-10); Neutrophil 73 % (42-75); Platelet Count 174 thou/uL (130-400); RBC Distribution Width 26.4 % (11.5-14.5); Red Blood Cell (RBC) Count 4.89 mill/uL (4.20-5.40)
[2019-07-06 07:05] LABS: Actual Bicarbonate (HCO3a) 16.8 mEq/L (22-28); Calcium, Ionized 1.12 mmol/L (1.12-1.30); Carboxyhemoglobin (COHb) 1.1 gm% (0.0-3.0); Hemoglobin (Hb) 11.3 g/dL (12.0-16.0); O2 Tension (PaO2) 99.9 mmHg (> 70.0); Potassium - ABG Lab 3.13 mmol/L (3.70-5.30); pH, Arterial 7.44 (7.35-7.45)
[2019-07-06 07:08] LABS: CO2 Tension 25.3 mmHg (35.0-45.0)
[2019-07-06 07:18] LABS: Puncture Site RBRACH
[2019-07-06 07:19] LABS: ALV-art Gradient 118.025 (0-20)
[2019-07-06] MEDS: predniSONE 20 MG TAB PO SCH ×2 (08:00→09:17)
[2019-07-06] MEDS: Cefepime 1 GM in Sodium Chloride 0.9% 100 ML IVPB SCH (08:37)
[2019-07-06] MEDS: Pantoprazole 40 MG VIAL IVP SCH (08:38)
--- NOTE | 2019-07-06 10:23 | PRG ---
DATE OF SERVICE: 07/06/2019 TIME SPENT: 35 minutes critical care time. SUBJECTIVE: The patient remains intubated on mechanical ventilation after left laparotomy yesterday. The laparotomy was fairly nondiagnostic. OBJECTIVE: VITAL SIGNS: Temperature 98.5, pulse 103, blood pressure 144/82, O2 saturation 98%. Intake for 24 hours 3388, output 1543. HEENT: Unremarkable. NECK: No adenopathy or JVD. LUNGS: Clear anteriorly. CARDIAC: S1 and S2. Slightly tachycardic. ABDOMEN: Large midline surgical dressing noted. Tender around the site. EXTREMITIES: No clubbing, cyanosis, or edema. LABORATORY DATA: Sodium 136, potassium 3.3, chloride 110, CO2 of 18, BUN 15, creatinine 0.6, glucose 158, AST 80, ALT 62. PH of 7.44, pCO2 of 25, and pO2 of 99 on SIMV rate 18, tidal volume 400, PEEP 5, pressure support 10, and FiO2 of 35%. White blood cell count 45.2, hematocrit 37.4, and platelet count 174. IMAGING STUDIES: Chest x-ray shows ET tube in place, flattened diaphragms. Question of a right-sided infiltrate. ASSESSMENT: 1. Sepsis syndrome with gastrointestinal symptoms, nondiagnostic laparotomy. 2. Acute respiratory failure requiring mechanical ventilation. 3. Question right-sided pneumonia. PLAN: 1. Discussed with Dr. Gonzalez. He recommends possibility of adding some type of antifungal coverage given that she is immunosuppressed. We will have a clear source of what is going on, but I would agree that we just need to go ahead and add the antifungal coverage, plan extubation. 2. Antifungal coverage in addition to the piperacillin, vancomycin, Levaquin. I will go ahead and stop the cefepime since that is duplicative with the Zosyn. Job ID: [id number]
[2019-07-06] MEDS: Micafungin 100 MG in Sodium Chloride 0.9% 100 ML IVPB SCH (11:16)
--- NOTE | 2019-07-06 12:07 | PRG ---
DATE OF SERVICE: 07/06/2019 REASON FOR CONSULTATION: Diarrhea, abnormal GI imaging, abdominal pain, Enterobacter bacteremia. SUBJECTIVE: Last night, the patient went for exploratory laparotomy with Dr. Gonzalez with relatively normal findings except for a 10 to 12 cm segment of the sigmoid colon that was boggy and erythematous in appearance. However, it did not display any evidence of perforation or ischemia. This morning, she states that her abdominal pain continues, but is lessened (although questioning is difficult with the patient being intubated). She does have pain centered primarily around the incision site itself. Per nursing staff, she has not had any further episodes of diarrhea since yesterday nor has she had any hematochezia, hematemesis, or melena. OBJECTIVE: VITAL SIGNS: Temperature 98.5, pulse 108, blood pressure 144/82, respiratory rate 25, and saturating 93% on mechanical ventilation. GENERAL: The patient is lying in bed, in no acute distress. Alert, but unable to establish orientation due to intubated status. CARDIOVASCULAR: Tachycardic rate, but regular rhythm. RESPIRATORY: Coarse breath sounds heard in all lung taylor consistent with mechanical ventilation. ABDOMEN: Normoactive bowel sounds. Soft. Mild abdominal distention. Continued tenderness to palpation to both light and deep palpation in all abdominal quadrants. EXTREMITIES: No cyanosis, clubbing, or edema. LABORATORY DATA: CBC with a white blood cell count of 45.2, hemoglobin 11, hematocrit 37.4, and platelets 174. Chemistry with a sodium of 136, potassium 3.3, chloride 110, CO2 of 18, BUN 15, creatinine 0.61, glucose 55, AST 80, ALT 62, alkaline phosphatase 118, and total bilirubin 0.6. IMAGING DATA: Chest x-ray obtained on July 05, 2019, showed interval placement of an endotracheal tube with the tip at the level of the loreto. Nasogastric tube could be seen traced into the stomach with the tip excluded from the film. Exploratory laparotomy was also performed on July 05, 2019, which showed small bowel was normal, nondilated with some clear ascites evacuated. The right colon, transverse, descending, and the proximal portion of the sigmoid colon were normal except for a 10 to 12 cm segment that had a very thick edematous wall. There was no evidence of abscess. No discrete diverticulitis, but had more of an infectious colitis type appearance. Decision was made to not remove this as it could be reversed medically, although there was mention that she may need a colostomy in the future. ASSESSMENT AND PLAN: The patient is a 69-year-old female with past medical history of rheumatoid arthritis, on chronic prednisone therapy, chronic pain, chronic obstructive pulmonary disease, and chronic debility, recently diagnosed with peptic ulcer disease and colonic polyp, presenting with Enterobacter bacteremia with an unknown source in addition to significant abdominal pain and diarrhea. Abdominal pain/diarrhea: The patient was recently admitted to the hospital with complaints of anemia and subsequently underwent both EGD and colonoscopy with findings of a nonbleeding gastric ulcer and a large flat polyp within the right colon. No other significant abnormalities were seen at that time, but shortly after discharge, the patient exhibited increased abdominal pain, diarrhea, and was subsequently readmitted for a sepsis-type picture. At this time, she has significantly increased wall thickening within the sigmoid colon concerning for possible infectious etiology. However, the extraluminal appearance is not consistent with diverticulitis, but rather an infective type process. Given her Enterobacter bacteremia, this could be the possible source of bacterial entry. However, she does also have evidence of urinary tract infection, which could also be contributing to her bacteremia as well. At this time, it seems as though she is responding to antibiotic administration with no further episodes of diarrhea with aggressive management thus far. RECOMMENDATIONS: 1. We will continue with broad-spectrum antibiotics as you are doing for possible diverticulitis versus infectious etiology within the colon. 2. We will follow up on the infectious stool studies, although they may be falsely negative given sterilization with antibiotics thus far. 3. Given the higher likelihood of an infectious etiology in her colon, a colonoscopy is not indicated at this time due to increased risk of perforation. 4. Pain control per Primary Team. We will continue to monitor this patient. Please call with any questions. Job ID: [id number]
[2019-07-06] MEDS ORDERED: Potassium Chloride 40 MEQ in Premix Bag 1 BAG IVPB SCH (14:15)
[2019-07-06] MEDS ORDERED: Ketorolac Tromethamine 30 MG/ML VIAL IVP PRN (15:20)
[2019-07-06] MEDS ORDERED: Ketorolac Tromethamine 30 MG/ML VIAL IVP SCH (15:30)
--- NOTE | 2019-07-06 15:43 | PRG ---
DATE OF SERVICE: 07/06/2019 SUBJECTIVE: Ms. Parrish is doing better today. She has been extubated this morning. OBJECTIVE: VITAL SIGNS: Heart rate 91, blood pressure 132/70. GENERAL: Her urine output is 1543/24 hours. The patient has pain from midline laparotomy, but states she is feeling better relative to yesterday. LUNGS: Clear to auscultation. CARDIAC: Regular rate and rhythm. No murmur or gallop. Abdomen: Soft. Occasional bowel sounds. EXTREMITIES: Unremarkable. LABORATORY DATA: This morning, her white count is down to 45,000 down from 53,000 yesterday, hemoglobin 11. Her carbon dioxide is 18 today, potassium 3.3, sodium 136. ASSESSMENT/PLAN: Colitis. Her C diff studies are negative. Stool studies pending. Dr. Navarro has been consulted. GI has seen the patient and laparotomy of the sigmoid colon segment was very boggy over a 12 cm length corresponding the CAT scan. There were no signs of ischemia. This is not typical of diverticulitis. It is some sort of infectious colitis, remotely histoplasmosis could be considered. Await Infectious Disease consult. Continue nonoperative therapy. Should her condition worsen, then repeat laparotomy, colon resection, and colostomy could be performed, but I was hoping to avoid that. Job ID: [id number]
--- NOTE | 2019-07-06 16:45 | PDOC.HOSPP ---
- Subjective Encounter Date: 07/06/19 Encounter Time: 12:43 Subjective: 69 y/o female with rheumatoid arthritis on chronic steroid and lefluonamide admitted with septic shock. Fever has subsided. Developed abdominal tenderness and frequent loose and was seen by surgery and subsequently had laparotomy. Now NPO. Remained afebrile. - Objective Vital Signs & Weight: Vital Signs (12 hours) Temp Pulse Resp Pulse Ox 07/06/19 16:00 98.6 F 07/06/19 12:59 91 20 100 07/06/19 12:00 99 F 07/06/19 09:28 108 H 25 H 93 L 07/06/19 08:00 18 07/06/19 06:55 99 07/06/19 06:54 98 18 100 07/06/19 06:00 18 Weight Weight 87 lb 15.431 oz Most Recent Monitor Data Heart Rate from ECG 122 NIBP 151/80 NIBP BP-Mean 115 Respiration from ECG 40 SpO2 93 I&O: 07/05/19 07/06/19 07/07/19 06:59 06:59 06:59 Intake Total 2367.8 3388.5 525 Output Total 965 1543 915 Balance 1402.8 1845.5 -390 Result Diagrams: 07/06/19 04:15 07/06/19 04:15 Additional Labs: Accuchecks 07/06/19 07/06/19 07/06/19 16:02 05:34 00:21 POC Glucose 148 H 158 H 74 Hospitalist ROS - Medication Medications: Active Medications Generic Name Dose Route Start Last Admin Trade Name Freq PRN Reason Stop Dose Admin Albuterol/Ipratropium 3 ml 07/04/19 19:00 07/06/19 12:59 Duoneb NEB 3 ml [id number] OLINDA Administration Piperacillin Sod/Tazobactam 100 mls @ 200 mls/hr 07/05/19 23:59 07/06/19 13: 00 Sod 3.375 gm/ Sodium Chloride IVPB 100 mls Q6HR OLINDA Administration Micafungin Sodium 100 mg/ 100 mls @ 100 mls/hr 07/06/19 10:00 07/06/19 11:16 Sodium Chloride IVPB 100 mls Q24H OLINDA Administration Lactated Ringer's 1,000 mls @ 80 mls/hr 07/06/19 09:30 09/02/19 11:15 Lactated Ringer's IV Not Given .[id number] OLINDA Potassium Chloride 40 meq/ 100 mls @ 25 mls/hr 07/06/19 14:15 07/06/19 14:36 Device IVPB 07/06/19 18:00 100 mls NOW OLINDA Administration Ketorolac Tromethamine 15 mg 07/06/19 15:30 07/06/19 16:03 Toradol IVP 07/06/19 17:30 15 mg NOW OLINDA Administration Melatonin 3 mg 07/04/19 22:06 07/04/19 22:44 Melatonin PO 3 mg HS PRN Administration Insomnia Ondansetron HCl 4 mg 07/04/19 13:54 07/05/19 08:09 Zofran IVP 4 mg Q6H PRN Administration Nausea/Vomiting Pantoprazole Sodium 40 mg 07/06/19 09:00 07/06/19 08:38 Protonix IVP 40 mg DAILY OLINDA Administration - Exam General Appearance: awake alert Eye: anicteric sclera ENT: normocephalic atraumatic Neck: supple, symmetric Heart: RRR Heart - other findings: tachycardic Respiratory: no wheezes, no ronchi Respiratory - other findings: fair air entry with scattered crackles both lung taylor Gastrointestinal: non-distended, diminished bowl sounds Gastrointestinal - other findings: surgical dressing noted Extremities: no edema Neurological: CN's grossly intact, no focal deficits Psychiatric: A&O x 3 Hosp A/P (1) Septic shock Code(s): A41.9 - SEPSIS, UNSPECIFIED ORGANISM; R65.21 - SEVERE SEPSIS WITH SEPTIC SHOCK Status: Acute (2) HERMINIA (acute kidney injury) Code(s): N17.9 - ACUTE KIDNEY FAILURE, UNSPECIFIED Status: Acute (3) Rhabdomyolysis Code(s): M62.82 - RHABDOMYOLYSIS Status: Acute (4) Syncope and collapse Code(s): R55 - SYNCOPE AND COLLAPSE Status: Acute (5) Hypokalemia Code(s): E87.6 - HYPOKALEMIA Status: Acute (6) Effusion of joint of both shoulders Code(s): M25.411 - EFFUSION, RIGHT SHOULDER; M25.412 - EFFUSION, LEFT SHOULDER Status: Acute (7) Abdominal tenderness, generalized Code(s): R10.817 - GENERALIZED ABDOMINAL TENDERNESS Status: Acute (8) PUD (peptic ulcer disease) Code(s): K27.9 - PEPTIC ULC, SITE UNSP, UNSP AC OR CHR, W/O HEMOR OR PERF Status: Acute (9) Frequent loose stools Code(s): R19.7 - DIARRHEA, UNSPECIFIED Status: Acute (10) Leukemoid reaction Code(s): D72.823 - LEUKEMOID REACTION Status: Acute (11) Tobacco abuse disorder Code(s): Z72.0 - TOBACCO USE Status: Acute (12) COPD exacerbation Code(s): J44.1 - CHRONIC OBSTRUCTIVE PULMONARY DISEASE W (ACUTE) EXACERBATION Status: Acute (13) Metabolic acidosis Code(s): E87.2 - ACIDOSIS Status: Acute (14) Elevated troponin Code(s): R74.8 - ABNORMAL LEVELS OF OTHER SERUM ENZYMES Status: Acute (15) Hypomagnesemia Code(s): E83.42 - HYPOMAGNESEMIA Status: Acute (16) Colitis Code(s): K52.9 - NONINFECTIVE GASTROENTERITIS AND COLITIS, UNSPECIFIED Status : Acute (17) Tachycardia with heart rate 100-120 beats per minute Code(s): R00.0 - TACHYCARDIA, UNSPECIFIED Status: Acute - Plan Replete serum potassium. Continue broad spectrum antibiotics. Oral vancomycin discontinue as C dif was negative Continue IVF and levophed as needed Continue other supportive care. Diet asc per Gen surgery.
[2019-07-06] MEDS: traMADol HCl 50 MG TAB PO PRN (17:31)
--- NOTE | 2019-07-06 18:10 | CON ---
DATE OF CONSULTATION: 07/06/2019 REASON FOR CONSULTATION: Bacteremia. HISTORY OF PRESENT ILLNESS: A 69-year-old history of rheumatoid arthritis for the past 7 years, approximately on chronic prednisone and leflunomide and COPD, who deteriorated suddenly at home following a syncopal event. She had had a recent EGD and colonoscopy because of upper GI bleeding and she had an ulcer in the gastric area, but the colon mucosal area was uneventful or unremarkable except for evidence of atrophy from chronic corticosteroid use and one flat polyp in the ascending colon, which was not removed, but biopsy showed adenomatous polyp. She had some diarrhea following that and then developed the syncopal event, could not get up, was found by daughter and brought to the hospital. She was found hypotensive, tachycardic with a temperature of 102. Lactic acid in [facility] was elevated at 5.4. Initial temperature in emergency room 98.3 and pulse 121, blood pressure 103/65, and O2 saturation 96 with nasal cannula O2. The pertinent findings in the exam included coarse crackles in lung taylor. There is mild epigastric tenderness. CBC with a white cell count 39.3, hemoglobin 10.8, and platelets 165. Creatinine 1.17, bilirubin 1.3, AST 121, albumin 2.5, and globulin 1.8. BNP 769, troponin 0.37, and CK was 2900. Urinalysis was negative for leukocyte esterase. There were no wbc seen. Chest x-ray with prominent interstitial linear markings throughout lung taylor. The patient was given a broad-spectrum antimicrobial coverage and admitted. Abdomen and pelvis CT with prominent wall thickening of the sigmoid colon. Bilateral pleural effusions and areas of ground-glass opacity. The patient underwent exploratory laparotomy by Dr. Gonzalez. The operative report was reviewed. Some clear ascites was evacuated. There was a 12 cm segment of sigmoid colon that had a very thick-walled edematous segment, but no abscess, no diverticulitis. Currently, Ms. Parrish is in the unit. She is awake, oriented, does not appear in acute distress, but is chronically ill. Mild headaches. No visual symptoms, sore throat, odynophagia, or dysphagia. Coughing intermittently, mild dyspnea. No chest pain. Mild to moderate abdominal pain in the midline area and left lower quadrant. She has a Puentes catheter in place. She has no major joint symptoms at this time. No neurological symptoms. PAST MEDICAL HISTORY: Longstanding rheumatoid arthritis on chronic corticosteroid and leflunomide, recent upper GI bleed with gastric ulcer, and COPD. PAST SURGICAL HISTORY: As above. SOCIAL HISTORY: Current smoker. Lives with daughter in [place]. No alcoholic beverage use. FAMILY HISTORY: Noncontributory. ALLERGIES: CODEINE. CURRENT MEDICATIONS: 1. DuoNeb. 2. Flexeril. 3. Dextrose. 4. Lovenox. 5. Glucagon. 6. Toradol. 7. Melatonin. 8. Medrol. 9. Micafungin. 10. Levophed. 11. Zosyn. PHYSICAL EXAMINATION: VITAL SIGNS: T-max 98.9, blood pressure 150/80, pulse 91, respirations 40, and O2 saturation 93. SKIN: With the midline incision for laparotomy without any major changes and the patient has a right groin femoral line, central line access, and a Puentes catheter. HEENT: Ocular movements conjugate. Conjunctivae normal. Oral cavity with no rosebud teeth remaining. NECK: Supple. No jugular venous distention. LUNGS: With scattered coarse crackles inspiratory, both right and left hemithorax. No wheezing. HEART: S1 and S2. No S3 or S4. Soft aortic murmur. ABDOMEN: Soft, mildly distended. Bowel sounds are not audible at this time. Mild tenderness. No bladder distention. EXTREMITIES: No joint inflammatory activity noted. Some joint deformities, which are chronic. Trace edema in lower extremities. Pulses are 1+ in dorsalis pedis. Plantar responses are flexor. No clonus. Moves extremities equally. NEUROLOGIC: She is awake, oriented, follows commands. LABORATORY DATA: White cell count 53,000 and now 45,000, hemoglobin 10, and platelets 186 with 36% bands. Creatinine 0.6, bilirubin 0.6, AST 80, ALT 62, alkaline phosphatase 118, and albumin 2.4. Urinalysis with 11 to 20 wbc's. Synovial fluid with 183 wbc's. This is an aspirate I believe from a right shoulder procedure. ASSESSMENT: 1. Longstanding rheumatoid arthritis, on leflunomide and prednisone. 2. Recent episode of upper GI. 3. Sepsis with sigmoid colon thickening and polymicrobial bacteremia with Enterobacter strep pneumo. 4. Leukemoid reaction. DISCUSSION: The C. difficile in stool was negative. The differential diagnosis includes opportunistic infectious processes in the intestinal area including the possibility of CMV colitis, disseminated strongyloidiasis. Other fungal intestinal processes including histoplasmosis are less likely, but not ruled out. Ischemic colitis is another possibility, although that was not obvious during the elap. Continue broad spectrum coverage. We will add albendazole or similar for management of possible disseminated strongyloidiasis. Submit assays for CMV, histoplasma, and cryptococcus antigen as well as strongyloides antibody and strongyloides stool evaluation and respiratory tract secretion evaluation as well. Job ID: [id number]
[2019-07-06] MEDS: Cyclobenzaprine 10 MG TAB PO SCH (22:35)
[2019-07-06] MEDS: methylPREDNISolone Sod Succ 40 MG VIAL IVP SCH (22:35)
[2019-07-06] MEDS: Enoxaparin Sodium 40 MG/0.4 ML SYRINGE SC SCH (22:35)
[2019-07-07] MEDS: Piperacillin/Tazobactam 3.375 GM in Sodium Chloride 0.9% 100 ML IVPB SCH ×4 (00:05→17:36)
[2019-07-07] MEDS: traMADol HCl 50 MG TAB PO PRN ×3 (05:04→23:10)
[2019-07-07 05:36] LABS: ALT (SGPT) 47 U/L (8-55); AST (SGOT) 46 U/L (5-34); Albumin 2.4 g/dL (3.4-4.8); Alkaline Phosphatase 139 U/L (40-150); Anion Gap 9 mmol/L (10-20); BUN (Urea Nitrogen) 12 mg/dL (9.8-20.1); Bilirubin, Total 0.5 mg/dL (0.2-1.2); Calc. Creatinine Clearance 56 mL/min (70-130); Calcium 8.6 mg/dL (7.8-10.44); Carbon Dioxide 23 mmol/L (23-31); Chloride 112 mmol/L (98-107); Estimated GFR-MDRD Greater than 90; Globulin 2.1 g/dL (2.4-3.5); Glucose 102 mg/dL (80-115); Potassium 3.9 mmol/L (3.5-5.1); Protein, Total 4.5 g/dL (6.0-8.3); Sodium 140 mmol/L (136-145)
[2019-07-07 05:57] LABS: Anisocytosis MODERATE=16-30 cells (100X) (0-5/hpf); Band 13 % (5-11); Elliptocytes SLIGHT = 2-5 cells (100X) (0-1/hpf); Hemoglobin 11.2 g/dL (12.0-16.0); Lymphocytes 5 % (21-51); MDiff Complete? YES; Mean Corpuscular HGB CONC 30.3 g/dL (32.0-36.0); Mean Corpuscular Hemoglobin 22.8 pg (27.0-31.0); Mean Corpuscular Volume 75.3 fL (78.0-98.0); Mean Platelet Volume 7.2 fL (7.4-10.4); Monocytes 2 % (0-10); Neutrophil 80 % (42-75); Platelet Count 210 thou/uL (130-400); RBC Distribution Width 26.6 % (11.5-14.5); White Blood Cell (WBC) Count 24.8 thou/uL (4.8-10.8)
[2019-07-07] MEDS: Micafungin 100 MG in Sodium Chloride 0.9% 100 ML IVPB SCH (10:23)
[2019-07-07] MEDS: methylPREDNISolone Sod Succ 40 MG VIAL IVP SCH ×2 (10:24→20:35)
[2019-07-07] MEDS: Ivermectin 3 MG TAB PO SCH (10:24)
[2019-07-07] MEDS: Pantoprazole 40 MG VIAL IVP SCH (10:24)
--- NOTE | 2019-07-07 13:07 | PDOC.HOSPP ---
- Subjective Encounter Date: 07/07/19 Encounter Time: 11:06 Subjective: 69 y/o female with rheumatoid arthritis on chronic steroid and lefluonamide admitted with septic shock. Fever has subsided. Developed abdominal tenderness and frequent loose and was seen by surgery and subsequently had laparotomy. Complaining of pain from attempted peripheral IV access placement. Remained afebrile. - Objective Vital Signs & Weight: Vital Signs (12 hours) Temp Pulse Resp Pulse Ox 07/07/19 12:00 98.1 F 07/07/19 09:25 112 H 30 H 96 07/07/19 08:00 98.0 F 95 07/07/19 04:00 98.1 F Weight Weight 98 lb 5.219 oz Most Recent Monitor Data Heart Rate from ECG 118 NIBP 153/100 NIBP BP-Mean 121 Respiration from ECG 34 SpO2 94 I&O: 07/06/19 07/07/19 07/08/19 06:59 06:59 06:59 Intake Total 3388.5 3374 Output Total 1543 1499 155 Balance 1845.5 1875 -155 Result Diagrams: 07/07/19 04:50 07/07/19 04:50 Additional Labs: Accuchecks 07/07/19 07/06/19 07/06/19 06:35 21:22 17:39 POC Glucose 86 125 H 112 H 07/06/19 16:02 POC Glucose 148 H Hospitalist ROS - Medication Medications: Active Medications Generic Name Dose Route Start Last Admin Trade Name Freq PRN Reason Stop Dose Admin Albuterol/Ipratropium 3 ml 07/04/19 19:00 07/07/19 09:25 Duoneb NEB 3 ml [id number] OLINDA Administration Cyclobenzaprine HCl 10 mg 07/06/19 21:00 07/06/19 22:35 Flexeril PO 10 mg HS OLINDA Administration Enoxaparin Sodium 40 mg 07/06/19 21:00 07/06/19 22:35 Lovenox SC 40 mg 2100 OLINDA Administration Piperacillin Sod/Tazobactam 100 mls @ 200 mls/hr 07/05/19 23:59 07/07/19 05: 05 Sod 3.375 gm/ Sodium Chloride IVPB 100 mls Q6HR OLINDA Administration Micafungin Sodium 100 mg/ 100 mls @ 100 mls/hr 07/06/19 10:00 07/07/19 10:23 Sodium Chloride IVPB 100 mls Q24H OLINDA Administration Lactated Ringer's 1,000 mls @ 80 mls/hr 07/06/19 09:30 07/06/19 18:34 Lactated Ringer's IV 1,000 mls .[id number] OLINDA Administration Ivermectin 9 mg 07/07/19 09:00 07/07/19 10:24 Stromectol PO 07/08/19 09:01 9 mg DAILY OLINDA Administration Melatonin 3 mg 07/04/19 22:06 07/04/19 22:44 Melatonin PO 3 mg HS PRN Administration Insomnia Methylprednisolone Sodium Succinate 40 mg 07/06/19 21:00 07/07/19 10:24 Solu-Medrol IVP 40 mg BID OLINDA Administration Ondansetron HCl 4 mg 07/04/19 13:54 07/05/19 08:09 Zofran IVP 4 mg Q6H PRN Administration Nausea/Vomiting Tramadol HCl 50 mg 07/06/19 15:20 07/07/19 05:04 Ultram PO 50 mg Q4H PRN Administration Pain - Exam General Appearance: awake alert General - other findings: mild painful distrrees Eye: anicteric sclera ENT: normocephalic atraumatic Neck: supple Heart: RRR Heart - other findings: tachycardic Respiratory: no wheezes, no ronchi Respiratory - other findings: fair air with scattered crackles/transmitted sound Gastrointestinal: soft, non-distended, normal bowel sounds, tender to palpation Extremities: no edema Neurological: CN's grossly intact, no focal deficits Psychiatric: A&O x 3 Hosp A/P (1) Septic shock Code(s): A41.9 - SEPSIS, UNSPECIFIED ORGANISM; R65.21 - SEVERE SEPSIS WITH SEPTIC SHOCK Status: Acute (2) HERMINIA (acute kidney injury) Code(s): N17.9 - ACUTE KIDNEY FAILURE, UNSPECIFIED Status: Acute (3) Rhabdomyolysis Code(s): M62.82 - RHABDOMYOLYSIS Status: Acute (4) Syncope and collapse Code(s): R55 - SYNCOPE AND COLLAPSE Status: Acute (5) Hypokalemia Code(s): E87.6 - HYPOKALEMIA Status: Acute (6) Effusion of joint of both shoulders Code(s): M25.411 - EFFUSION, RIGHT SHOULDER; M25.412 - EFFUSION, LEFT SHOULDER Status: Acute (7) Abdominal tenderness, generalized Code(s): R10.817 - GENERALIZED ABDOMINAL TENDERNESS Status: Acute (8) PUD (peptic ulcer disease) Code(s): K27.9 - PEPTIC ULC, SITE UNSP, UNSP AC OR CHR, W/O HEMOR OR PERF Status: Acute (9) Frequent loose stools Code(s): R19.7 - DIARRHEA, UNSPECIFIED Status: Acute (10) Leukemoid reaction Code(s): D72.823 - LEUKEMOID REACTION Status: Acute (11) Tobacco abuse disorder Code(s): Z72.0 - TOBACCO USE Status: Acute (12) COPD exacerbation Code(s): J44.1 - CHRONIC OBSTRUCTIVE PULMONARY DISEASE W (ACUTE) EXACERBATION Status: Acute (13) Metabolic acidosis Code(s): E87.2 - ACIDOSIS Status: Acute (14) Elevated troponin Code(s): R74.8 - ABNORMAL LEVELS OF OTHER SERUM ENZYMES Status: Acute (15) Hypomagnesemia Code(s): E83.42 - HYPOMAGNESEMIA Status: Acute (16) Colitis Code(s): K52.9 - NONINFECTIVE GASTROENTERITIS AND COLITIS, UNSPECIFIED Status : Acute (17) Tachycardia with heart rate 100-120 beats per minute Code(s): R00.0 - TACHYCARDIA, UNSPECIFIED Status: Acute (18) S/P exploratory laparotomy Status: Acute - Plan Start incentive spirometry Continue broad spectrum antibiotics. Continue IVF and levophed as needed Continue other supportive care. Diet as per Gen surgery. Place PICC line and DC Right groin TLC. Awaiting diagnostic test.
[2019-07-07] MEDS: Lactated Ringer's 1,000 ML IV SCH (14:00)
[2019-07-07] MEDS ORDERED: Lidocaine 2% PF 100 mg/5 ml Syringe ONE (15:03)
[2019-07-07] MEDS ORDERED: Metoprolol Tartrate 5 MG/5 ML VIAL ONE (15:04)
[2019-07-07] MEDS ORDERED: Metoprolol Tartrate 5 MG/5 ML VIAL IVP SCH (15:30)
[2019-07-07] MEDS ORDERED: Diltiazem HCl 125 MG, Admixture Fee 1 EACH in Sodium Chloride 0.9% 100 ML IVPB SCH (15:30)
[2019-07-07 15:53] LABS: Actual Bicarbonate (HCO3a) 20.3 mEq/L (22-28); Base Excess (BEa) -4.4 mEq/L (-2.0 to +3.0); CO2 Tension 35.8 mmHg (35.0-45.0); Calcium, Ionized 1.13 mmol/L (1.12-1.30); Hemoglobin (Hb) 11.6 g/dL (12.0-16.0); O2 Tension (PaO2) 84.7 mmHg (> 70.0); Potassium - ABG Lab 3.84 mmol/L (3.70-5.30); pH, Arterial 7.37 (7.35-7.45)
[2019-07-07 16:19] LABS: Puncture Site RB
--- NOTE | 2019-07-07 16:19 | PRG ---
DATE OF SERVICE: 07/07/2019 SUBJECTIVE: Events have been reviewed. Her surgery was discussed with Dr. Gonzalez yesterday. She became tachycardic this afternoon. Her oral temp was mildly elevated, but she is tachypneic, so I am not sure her oral temperature is accurate. She was given 5 of Lopressor . For possible a flutter. Was not a. flutter OBJECTIVE: VITAL SIGNS: Heart rate of 150 slowed down to a heart rate of 136 and it appeared to be sinus rhythm. LUNGS: Clear. HEART: Regular rhythm. ABDOMEN: Soft. LABORATORY DATA: White count 24.8, hemoglobin 11.2, platelets 210. Sodium 140, potassium 3.9, chloride 112, bicarb 23, BUN 12, and creatinine 0.59. I have ordered a blood gas given her tachypnea. I suspect her tachycardia is temperature and inflammatory response mediated. Blood cultures from July 04, from [place] have grown Klebsiella, Strep pneumonia, and Proteus mirabilis. IMPRESSION: Polymicrobial bacteremia? From her inflamed colon. She will need to stay in the Critical Care Unit. Infectious Disease has been consulted. She remains quite tenuous given her to extreme deconditioning. Job ID: [id number] MTDD
[2019-07-07] MEDS ORDERED: Lactated Ringer's 1,000 ML IV SCH (18:09)
[2019-07-07] MEDS ORDERED: Furosemide 40 MG/4 ML VIAL SLOW IVP SCH (18:15)
[2019-07-07] MEDS ORDERED: Adenosine 6 MG/2 ML VIAL IVP SCH (18:30)
[2019-07-07] MEDS ORDERED: Ibuprofen 600 MG TAB PO PRN (20:30)
[2019-07-07] MEDS: Cyclobenzaprine 10 MG TAB PO SCH (20:35)
--- NOTE | 2019-07-07 20:56 | PRG ---
DATE OF SERVICE: 07/07/2019 SUBJECTIVE: Ms. Parrish is in ICU mainly because of AFib/atrial flutter. This has been controlled medically, parenterally. The patient has not had any nausea or vomiting. Dr. Navarro has seen her. OBJECTIVE: VITAL SIGNS: Temperature 97.9 degrees, heart rate 106, blood pressure 149/84. Urine output is good, 1499 per 24 hours. LUNGS: Clear to auscultation. CARDIAC: Regular rate and rhythm. No murmur or gallop. ABDOMEN: Soft, nontender. Good bowel sounds. ASSESSMENT AND PLAN: Doing well. We will advance her diet, TKO or IV fluids. Her mobility has been good. She has been some time in the chair today. Once her AFib/atrial flutter is controlled medically, she could go to telemetry from my standpoint. Currently, she is on adenosine and Cardizem drip, p.o. daily, Micafungin, methylprednisolone 40 mg IV piggyback b.i.d., and Zosyn. Her abdomen seems to be improving. She is much less tender than she was on initial presentation. Job ID: [id number]
[2019-07-07] MEDS: Enoxaparin Sodium 40 MG/0.4 ML SYRINGE SC SCH (21:19)
[2019-07-08] MEDS: Piperacillin/Tazobactam 3.375 GM in Sodium Chloride 0.9% 100 ML IVPB SCH ×4 (00:02→18:08)
[2019-07-08 04:27] LABS: ALT (SGPT) 38 U/L (8-55); AST (SGOT) 30 U/L (5-34); Albumin 2.6 g/dL (3.4-4.8); Alkaline Phosphatase 137 U/L (40-150); Anion Gap 13 mmol/L (10-20); BUN (Urea Nitrogen) 14 mg/dL (9.8-20.1); Bilirubin, Total 0.6 mg/dL (0.2-1.2); Calc. Creatinine Clearance 60 mL/min (70-130); Calcium 8.5 mg/dL (7.8-10.44); Carbon Dioxide 29 mmol/L (23-31); Chloride 103 mmol/L (98-107); Estimated GFR-MDRD Greater than 90; Globulin 2.1 g/dL (2.4-3.5); Glucose 192 mg/dL (80-115); Magnesium 1.5 mg/dL (1.6-2.6); Potassium 3.2 mmol/L (3.5-5.1); Protein, Total 4.7 g/dL (6.0-8.3); Sodium 142 mmol/L (136-145)
[2019-07-08 04:55] LABS: Band 4 % (5-11); Hemoglobin 11.2 g/dL (12.0-16.0); Hypochromia SLIGHT = 6-15 cells (100X) (0-5/hpf); Lymphocytes 15 % (21-51); MDiff Complete? YES; Mean Corpuscular HGB CONC 29.8 g/dL (32.0-36.0); Mean Corpuscular Hemoglobin 22.6 pg (27.0-31.0); Mean Corpuscular Volume 75.6 fL (78.0-98.0); Mean Platelet Volume 6.5 fL (7.4-10.4); Microcytosis SLIGHT = 6-15 cells (100X) (0-5/hpf); Neutrophil 81 % (42-75); Platelet Count 238 thou/uL (130-400); RBC Distribution Width 26.6 % (11.5-14.5); Red Blood Cell (RBC) Count 4.95 mill/uL (4.20-5.40); White Blood Cell (WBC) Count 14.1 thou/uL (4.8-10.8)
[2019-07-08] MEDS: Furosemide 20 MG/2 ML VIAL SLOW IVP SCH (06:18)
--- NOTE | 2019-07-08 08:49 | RAD ---
CHEST ONE VIEW: HISTORY: Respiratory insufficiency. COMPARISON: 07/05/2019 FINDINGS: NG tube and endotracheal tube have been removed. Stable bilateral interstitial and alveolar opacity changes and vascular congestion. Increasing pleural and parenchymal opacity changes in the left base . Slightly more marked right pleural effusion. IMPRESSION: Persistent interstitial and alveolar opacity changes and right pleural effusion. Somewhat progressiv e appearing left pleural effusion. Continued short-term followup. POS: JELANI
[2019-07-08] MEDS: traMADol HCl 50 MG TAB PO PRN ×2 (09:12→19:26)
[2019-07-08] MEDS: methylPREDNISolone Sod Succ 40 MG VIAL IVP SCH ×2 (09:13→20:20)
[2019-07-08] MEDS ORDERED: Ivermectin 3 MG TAB PO SCH (09:15)
--- NOTE | 2019-07-08 10:09 | PRG ---
DATE OF SERVICE: 07/08/2019 SUBJECTIVE: Ameena Parrish is doing well today. She has been moved to [facility]. She is still on parenteral drips for AFib/flutter. Heart rate 105, temperature 98.2 degrees, and blood pressure 129/71. She is tolerating her diet, although complaining that her mouth is sore and she cannot eat solid foods well. Urine output 4485 for 24 hours. IV fluids TKO'd. OBJECTIVE: LUNGS: Clear to auscultation. CARDIAC: Regular rate and rhythm. No murmur or gallop. ABDOMEN: Soft, flat. Much less tenderness. Midline wound looks good. ASSESSMENT AND PLAN: The patient is doing well, tolerating diet, having bowel movements, bowel function. The inflammatory condition of the sigmoid colon seemed to be improving with current regimen. Dr. Navarro is following her. The patient's galo should be removed on postoperative day 7 or 8. She had her surgery on 07/05/2019. Job ID: [id number]
[2019-07-08] MEDS: Micafungin 100 MG in Sodium Chloride 0.9% 100 ML IVPB SCH (10:24)
[2019-07-08] MEDS: Ivermectin 3 MG TAB PO SCH (10:24)
--- NOTE | 2019-07-08 13:56 | PRG ---
DATE OF SERVICE: 07/07/2019 SUBJECTIVE: Ms. Parrish is in the ICU. She was starting to take a little bit p.o. OBJECTIVE: VITAL SIGNS: Temperature 98, pulse 76, blood pressure 131/67. GENERAL: She is frail and thin. SKIN: She has a buffalo hump and skin changes of chronic steroid use. LUNGS: Clear. ABDOMEN: Soft and nontender. EXTREMITIES: No clubbing, cyanosis, or edema. LABORATORY CARMEN A: White count 24,800, down from 45,000, hemoglobin 11.2, MCV 75, neutrophils 80, bands 13%. Sodium 140, potassium 3.9. BUN creatinine 12 and 0.59. Liver function tests normal except for an AST of 46, albumin 2.4, protein 4.5. ASSESSMENT: 1. Longstanding rheumatoid arthritis with chronic prednisone use. 2. Recent upper gastrointestinal bleed with findings of gastric ulcer, biopsies of which were benign. Colonoscopy was normal except for diverticulosis with a polyp in the right colon which was not removed secondary to its size, but it was benign on biopsy. 3. Sepsis on admission with polymicrobial bacteremia with Enterobacter and Streptococcus pneumoniae, sigmoid colon thickening on imaging on admission, although the laparoscopy was nondiagnostic. 4. Leukemoid reaction. Infectious Disease workup is pending. She seems to be improving. We will follow along with you. Job ID: [id number]
--- NOTE | 2019-07-08 15:06 | SPC ---
Ultrasound guided left upper extremity PICC placement HISTORY: Infection. Patient needs long-term IV antibiotics. FINDINGS: Informed consent obtained prior to the procedure. An appropriate access site was determined with ultrasound guidance. The area was then meticulously pr epped and draped in usual sterile fashion. Skin overlying the left brachial vein anesthetized with 1% buffered lidocaine. Utilizing direct sonog raphic guidance, vascular access is obtained via the left brachial vein, and an 0.018in guidewire was advanced to the cavoatrial junction. Intravascular length is calculated at 40 cm, and the PICC is cut accordingly. Needle is removed and replaced with a peel-away sheath. The PICC was advanced over the wire. Wire and peel-away sheath were removed. The tip of the catheter overlies the cavoatrial junction. The catheter was accessed and aspirated/flushed easily. FINDINGS: Technically successful placement of a 40 centimeter dual-lumen 5 Beninese left upper extremity PICC britany godoy IMPRESSION: Successful ultrasound guided placement of a left upper extremity PICC.
[2019-07-08] MEDS ORDERED: Cosyntropin 250 MCG VIAL SLOW IVP SCH (15:45)
[2019-07-08] MEDS ORDERED: Magnesium Sulfate 4 GM in Sodium Chloride 0.9% 250 ML 250 ML IVPB SCH (16:15)
--- NOTE | 2019-07-08 16:37 | PRG ---
DATE OF SERVICE: SUBJECTIVE: Ms. Parrish comes in with complains of sore mouth. She is on liquids. She wants some Ensure. OBJECTIVE: VITAL SIGNS: Respirations 22, pulse is 100, blood pressure 136/70. LUNGS: Decreased breath sounds at bases. Slight expiratory wheeze. HEENT: Oropharynx is dry. There is lack of dentition. She has no evidence of thrush. The mucosa is somewhat red. HEART: Regular rate and rhythm without clicks or murmurs. ABDOMEN: Soft and nontender. LABORATORY DATA: White count 14,000, hemoglobin 11, MCV 75, platelet count 238. Sodium 142, potassium 3.2, BUN and creatinine are 14 and 0.6. AST 30, ALT 38, glucose 278. ASSESSMENT: 1. Chronic obstructive pulmonary disease. 2. Admitted with sepsis, multiple organism causing bacteremia of unclear etiology. I have talked with Dr. Gonzalez. There was no signs of perforation of the upper GI tract or microperforation related to her ulcer. 3. History of gastric ulcer from NSAIDs recently. 4. Polyp in the right colon, not removable. RECOMMENDATIONS: 1. I started on probiotic, we will hold the antibiotic she is on. 2. I had to stop the Toradol as a p.r.n. She already had an NSAID ulcer. We do not need to make it worse. 3. She is on no steroids now and get a Cortrosyn stimulation test. She has been on steroids for over 10 years. She may need some baseline cortisol. Job ID: [id number]
--- NOTE | 2019-07-08 16:52 | PDOC.HOSPP ---
- Subjective Encounter Date: 07/08/19 Encounter Time: 15:50 Subjective: 69 y/o female with rheumatoid arthritis on chronic steroid and lefluonamide admitted with septic shock. Fever has subsided. Developed abdominal tenderness and frequent loose and was seen by surgery and subsequently had laparotomy. Feeling better. Had BM earlier today. Remained afebrile. - Objective Vital Signs & Weight: Vital Signs (12 hours) Temp Pulse Pulse Pulse Resp BP BP 07/08/19 15:47 97.8 F 07/08/19 13:55 84 22 H 07/08/19 13:27 101 H 96 136/70 124/70 07/08/19 11:20 99.2 F 07/08/19 07:25 98.2 F 07/08/19 07:21 07/08/19 07:19 07/08/19 07:18 105 H 26 H Pulse Ox Pulse Ox Pulse Ox 07/08/19 15:47 07/08/19 13:55 98 07/08/19 13:27 94 L 96 07/08/19 11:20 07/08/19 07:25 07/08/19 07:21 95 07/08/19 07:19 96 07/08/19 07:18 95 Weight Admit Weight 98 lb Weight 88 lb 14.4 oz Most Recent Monitor Data Heart Rate from ECG 96 NIBP 145/77 NIBP BP-Mean 99 Respiration from ECG 27 SpO2 94 I&O: 07/07/19 07/08/19 07/09/19 06:59 06:59 06:59 Intake Total 3374 1270.2 Output Total 1499 4485 2400 Balance 1875 -3214.8 -2400 Result Diagrams: 07/08/19 03:50 07/08/19 03:50 Additional Labs: Accuchecks 07/08/19 07/07/19 07/07/19 10:45 21:21 18:43 POC Glucose 278 H 216 H 187 H Hospitalist ROS - Medication Medications: Active Medications Generic Name Dose Route Start Last Admin Trade Name Freq PRN Reason Stop Dose Admin Albuterol/Ipratropium 3 ml 07/04/19 19:00 07/08/19 13:55 Duoneb NEB 3 ml [id number] OLINDA Administration Cyclobenzaprine HCl 10 mg 07/06/19 21:00 07/07/19 20:35 Flexeril PO 10 mg HS OLINDA Administration Enoxaparin Sodium 40 mg 07/06/19 21:00 07/07/19 21:19 Lovenox SC 40 mg 2100 OLINDA Administration Furosemide 20 mg 07/08/19 06:00 07/08/19 06:18 Lasix SLOW IVP 07/09/19 06:01 20 mg 0600 OLINDA Administration Piperacillin Sod/Tazobactam 100 mls @ 200 mls/hr 07/05/19 23:59 07/08/19 12: 22 Sod 3.375 gm/ Sodium Chloride IVPB 100 mls Q6HR OLINDA Administration Micafungin Sodium 100 mg/ 100 mls @ 100 mls/hr 07/06/19 10:00 07/08/19 10:24 Sodium Chloride IVPB 100 mls Q24H OLINDA Administration Melatonin 3 mg 07/04/19 22:06 07/04/19 22:44 Melatonin PO 3 mg HS PRN Administration Insomnia Methylprednisolone Sodium Succinate 40 mg 07/06/19 21:00 07/08/19 09:13 Solu-Medrol IVP 40 mg BID OLINDA Administration Ondansetron HCl 4 mg 07/04/19 13:54 07/05/19 08:09 Zofran IVP 4 mg Q6H PRN Administration Nausea/Vomiting Pantoprazole Sodium 40 mg 07/08/19 09:00 07/08/19 09:13 Protonix PO 40 mg DAILY OLINDA Administration Tramadol HCl 50 mg 07/06/19 15:20 07/08/19 09:12 Ultram PO 50 mg Q4H PRN Administration Pain - Exam General Appearance: awake alert Eye: anicteric sclera ENT: normocephalic atraumatic Neck: supple, symmetric Heart: RRR Respiratory: no wheezes, no ronchi Respiratory - other findings: fair air entry with scatttered crackles / transmitted sound Gastrointestinal: soft, non-distended, normal bowel sounds Extremities: no cyanosis, no edema Neurological: CN's grossly intact, no focal deficits Psychiatric: normal affect, A&O x 3 Hosp A/P (1) Septic shock Code(s): A41.9 - SEPSIS, UNSPECIFIED ORGANISM; R65.21 - SEVERE SEPSIS WITH SEPTIC SHOCK Status: Acute (2) HERMINIA (acute kidney injury) Code(s): N17.9 - ACUTE KIDNEY FAILURE, UNSPECIFIED Status: Acute (3) Rhabdomyolysis Code(s): M62.82 - RHABDOMYOLYSIS Status: Acute (4) Syncope and collapse Code(s): R55 - SYNCOPE AND COLLAPSE Status: Acute (5) Hypokalemia Code(s): E87.6 - HYPOKALEMIA Status: Acute (6) Effusion of joint of both shoulders Code(s): M25.411 - EFFUSION, RIGHT SHOULDER; M25.412 - EFFUSION, LEFT SHOULDER Status: Acute (7) Abdominal tenderness, generalized Code(s): R10.817 - GENERALIZED ABDOMINAL TENDERNESS Status: Acute (8) PUD (peptic ulcer disease) Code(s): K27.9 - PEPTIC ULC, SITE UNSP, UNSP AC OR CHR, W/O HEMOR OR PERF Status: Acute (9) Frequent loose stools Code(s): R19.7 - DIARRHEA, UNSPECIFIED Status: Acute (10) Leukemoid reaction Code(s): D72.823 - LEUKEMOID REACTION Status: Acute (11) Tobacco abuse disorder Code(s): Z72.0 - TOBACCO USE Status: Acute (12) COPD exacerbation Code(s): J44.1 - CHRONIC OBSTRUCTIVE PULMONARY DISEASE W (ACUTE) EXACERBATION Status: Acute (13) Metabolic acidosis Code(s): E87.2 - ACIDOSIS Status: Acute (14) Elevated troponin Code(s): R74.8 - ABNORMAL LEVELS OF OTHER SERUM ENZYMES Status: Acute (15) Hypomagnesemia Code(s): E83.42 - HYPOMAGNESEMIA Status: Acute (16) Colitis Code(s): K52.9 - NONINFECTIVE GASTROENTERITIS AND COLITIS, UNSPECIFIED Status : Acute (17) Tachycardia with heart rate 100-120 beats per minute Code(s): R00.0 - TACHYCARDIA, UNSPECIFIED Status: Acute (18) S/P exploratory laparotomy Status: Acute - Plan Replete serum potassium and magnesium. Continue broad spectrum antibiotics. Off Levophed. IVF changed to KVO Continue other supportive care. Will change diet to soft diet as patient is edentulous
[2019-07-08] MEDS: Potassium Chloride 20 MEQ TAB PO SCH ×2 (17:12→20:20)
--- NOTE | 2019-07-08 17:43 | PRG ---
DATE OF SERVICE: 07/08/2019 SUBJECTIVE: Ms. Parrish remains stable. Her white count is down to 14.1. Hemodynamics are improved today. She is in less respiratory distress. She did have an increase in heart rate back up to 150 and received adenosine yesterday afternoon with no improvement. To refresh, she had 5 mg of Lopressor, which revealed that this was simply sinus tachycardia. My concerns were at that time that she was developing fever leading to the tachycardia, but also concerned that she could possibly have an enteric leak. She clinically improved today and was transferred out of the critical care unit this morning by the hospitalist. OBJECTIVE: LUNGS: Clear. HEART: Regular rhythm. ABDOMEN: Minimally tender. EXTREMITIES: Without asymmetry. LABORATORY DATA: White count 14.1, hemoglobin 11.2, and platelets 238,000. Sodium 142, potassium 3.2, chloride 103, bicarb 29, BUN 14, and creatinine 0.61. IMPRESSION AND PLAN: Bacteremia with multiple pathogens, likely from her colitis. She appears to be clinically improved after exploratory laparotomy. Other problems include chronic obstructive pulmonary disease, rheumatoid arthritis, history of gastric ulcer, and history of a right colon polyp. Cortrosyn stimulation test was ordered today by Dr. Nogueira since her steroids have been stopped. Cortisol level on July 04 was 25. We will await the results of the Cortrosyn stimulation test. We will continue to follow. Job ID: [id number]
[2019-07-08] MEDS: Enoxaparin Sodium 40 MG/0.4 ML SYRINGE SC SCH (20:20)
[2019-07-08] MEDS: Cyclobenzaprine 10 MG TAB PO SCH (20:20)
[2019-07-09] MEDS: traMADol HCl 50 MG TAB PO PRN ×3 (00:15→19:52)
[2019-07-09] MEDS: Piperacillin/Tazobactam 3.375 GM in Sodium Chloride 0.9% 100 ML IVPB SCH ×4 (00:15→17:02)
[2019-07-09 04:58] LABS: Anisocytosis MODERATE=16-30 cells (100X) (0-5/hpf); Band 2 % (5-11); Hemoglobin 10.7 g/dL (12.0-16.0); Hypochromia SLIGHT = 6-15 cells (100X) (0-5/hpf); Lymphocytes 8 % (21-51); MDiff Complete? YES; Mean Corpuscular HGB CONC 30.5 g/dL (32.0-36.0); Mean Corpuscular Volume 75.3 fL (78.0-98.0); Mean Platelet Volume 7.1 fL (7.4-10.4); Monocytes 7 % (0-10); Neutrophil 83 % (42-75); Platelet Count 234 thou/uL (130-400); Platelet Morphology Comment Appears Adequate; RBC Distribution Width 26.3 % (11.5-14.5); Red Blood Cell (RBC) Count 4.66 mill/uL (4.20-5.40); White Blood Cell (WBC) Count 16.9 thou/uL (4.8-10.8)
[2019-07-09] MEDS: Furosemide 20 MG/2 ML VIAL SLOW IVP SCH (06:20)
--- NOTE | 2019-07-09 07:53 | RAD ---
XR Chest 1 View Portable HISTORY: Respiratory distress COMPARISON: 07/08/2019 FINDINGS: The heart size normal. There is pulmonary vascular congestion with bilateral pleural effusi ons. Left-sided PICC line has been placed in the interim with tip in the projection of the cavoatrial junction. No pneumothoraces are seen.
[2019-07-09 07:54] LABS: Anion Gap 12 mmol/L (10-20); BUN (Urea Nitrogen) 14 mg/dL (9.8-20.1); Calc. Creatinine Clearance 61 mL/min (70-130); Calcium 8.5 mg/dL (7.8-10.44); Carbon Dioxide 34 mmol/L (23-31); Chloride 98 mmol/L (98-107); Estimated GFR-MDRD Greater than 90; Glucose 231 mg/dL (80-115); Potassium 4.7 mmol/L (3.5-5.1); Sodium 139 mmol/L (136-145)
[2019-07-09] MEDS: methylPREDNISolone Sod Succ 40 MG VIAL IVP SCH ×2 (08:56→19:54)
[2019-07-09] MEDS: Micafungin 100 MG in Sodium Chloride 0.9% 100 ML IVPB SCH (12:28)
[2019-07-09] MEDS ORDERED: Aluminum & Magnesium Hydroxide 60 ML, Lidocaine 2% Viscous Solution 30 ML, diphenhydrAM... SSW PRN (16:42)
--- NOTE | 2019-07-09 16:42 | PDOC.HOSPP ---
- Subjective Encounter Date: 07/09/19 Encounter Time: 11:41 Subjective: 69 y/o female with rheumatoid arthritis on chronic steroid and lefluonamide admitted with septic shock. Fever has subsided. Developed abdominal tenderness and frequent loose and was seen by surgery and subsequently had laparotomy. Feeling better. complaining of lip and gum pain especially while attempting to eat. - Objective Vital Signs & Weight: Vital Signs (12 hours) Temp Pulse Resp Pulse Ox 07/09/19 15:42 98.2 F 07/09/19 12:05 104 H 28 H 95 07/09/19 11:33 97.7 F 07/09/19 07:42 97.4 F L 07/09/19 06:30 95 07/09/19 06:28 98 20 95 Weight Admit Weight 80 lb 11.027 oz Weight 91 lb Most Recent Monitor Data Heart Rate from ECG 106 NIBP 137/74 NIBP BP-Mean 95 Respiration from ECG 22 SpO2 98 I&O: 07/08/19 07/09/19 07/10/19 06:59 06:59 06:59 Intake Total 1270.2 2599 Output Total 4485 3400 1570 Balance -3214.8 -801 -1570 Result Diagrams: 07/09/19 04:10 07/09/19 04:10 Additional Labs: Accuchecks 07/09/19 07/09/19 07/08/19 11:35 05:33 20:20 POC Glucose 255 H 206 H 279 H 07/08/19 16:42 POC Glucose 254 H Hospitalist ROS - Medication Medications: Active Medications Generic Name Dose Route Start Last Admin Trade Name Laronq PRN Reason Stop Dose Admin Albuterol/Ipratropium 3 ml 07/04/19 19:00 07/09/19 12:05 Duoneb NEB 3 ml [id number] OLINDA Administration Cyclobenzaprine HCl 10 mg 07/06/19 21:00 07/08/19 20:20 Flexeril PO 10 mg HS OLINDA Administration Enoxaparin Sodium 40 mg 07/06/19 21:00 07/08/19 20:20 Lovenox SC 40 mg 2100 OLINDA Administration Piperacillin Sod/Tazobactam 100 mls @ 200 mls/hr 07/05/19 23:59 07/09/19 12: 27 Sod 3.375 gm/ Sodium Chloride IVPB 100 mls Q6HR OLINDA Administration Micafungin Sodium 100 mg/ 100 mls @ 100 mls/hr 07/06/19 10:00 07/09/19 12:28 Sodium Chloride IVPB 100 mls Q24H OLINDA Administration Diltiazem HCl 125 mg/ 125 mls @ 0 mls/hr 07/07/19 15:30 07/08/19 19:22 Miscellaneous Medication 1 IVPB 125 mls each/ Sodium Chloride INF OLINDA Administration Protocol As Directed Melatonin 3 mg 07/04/19 22:06 07/04/19 22:44 Melatonin PO 3 mg HS PRN Administration Insomnia Methylprednisolone Sodium Succinate 40 mg 07/06/19 21:00 07/09/19 08:56 Solu-Medrol IVP 40 mg BID OLINDA Administration Ondansetron HCl 4 mg 07/04/19 13:54 07/05/19 08:09 Zofran IVP 4 mg Q6H PRN Administration Nausea/Vomiting Pantoprazole Sodium 40 mg 07/08/19 09:00 07/09/19 08:56 Protonix PO 40 mg DAILY OLINDA Administration Tramadol HCl 50 mg 07/06/19 15:20 07/09/19 13:43 Ultram PO 50 mg Q4H PRN Administration Pain - Exam General Appearance: awake alert Eye: anicteric sclera ENT: normocephalic atraumatic Neck: supple, symmetric Heart: RRR Heart - other findings: tachycardic Respiratory: no wheezes, no ronchi, no tachypnea Respiratory - other findings: fair air entry bilaterally with scattered crackles Gastrointestinal: soft, non-distended, normal bowel sounds Extremities: 1+ LE edema Neurological: CN's grossly intact, no focal deficits Musculoskeletal: no muscle wasting, generalized weakness, diffuse muscle atrophy Psychiatric: normal affect, A&O x 3 Hosp A/P (1) Septic shock Code(s): A41.9 - SEPSIS, UNSPECIFIED ORGANISM; R65.21 - SEVERE SEPSIS WITH SEPTIC SHOCK Status: Acute (2) HERMINIA (acute kidney injury) Code(s): N17.9 - ACUTE KIDNEY FAILURE, UNSPECIFIED Status: Acute (3) Rhabdomyolysis Code(s): M62.82 - RHABDOMYOLYSIS Status: Acute (4) Syncope and collapse Code(s): R55 - SYNCOPE AND COLLAPSE Status: Acute (5) Hypokalemia Code(s): E87.6 - HYPOKALEMIA Status: Acute (6) Effusion of joint of both shoulders Code(s): M25.411 - EFFUSION, RIGHT SHOULDER; M25.412 - EFFUSION, LEFT SHOULDER Status: Acute (7) Abdominal tenderness, generalized Code(s): R10.817 - GENERALIZED ABDOMINAL TENDERNESS Status: Acute (8) PUD (peptic ulcer disease) Code(s): K27.9 - PEPTIC ULC, SITE UNSP, UNSP AC OR CHR, W/O HEMOR OR PERF Status: Acute (9) Frequent loose stools Code(s): R19.7 - DIARRHEA, UNSPECIFIED Status: Acute (10) Leukemoid reaction Code(s): D72.823 - LEUKEMOID REACTION Status: Acute (11) Tobacco abuse disorder Code(s): Z72.0 - TOBACCO USE Status: Acute (12) COPD exacerbation Code(s): J44.1 - CHRONIC OBSTRUCTIVE PULMONARY DISEASE W (ACUTE) EXACERBATION Status: Acute (13) Metabolic acidosis Code(s): E87.2 - ACIDOSIS Status: Acute (14) Elevated troponin Code(s): R74.8 - ABNORMAL LEVELS OF OTHER SERUM ENZYMES Status: Acute (15) Hypomagnesemia Code(s): E83.42 - HYPOMAGNESEMIA Status: Acute (16) Colitis Code(s): K52.9 - NONINFECTIVE GASTROENTERITIS AND COLITIS, UNSPECIFIED Status : Acute (17) Tachycardia with heart rate 100-120 beats per minute Code(s): R00.0 - TACHYCARDIA, UNSPECIFIED Status: Acute (18) S/P exploratory laparotomy Status: Acute - Plan Start oral cardizem and wean off cardizem infusion Start magic moutwash for oral pain. Replete serum potassium and magnesium as needed. Continue antibiotics. Continue other supportive care. can be transferred to surgery if cleared by Pulmonary
--- NOTE | 2019-07-09 16:53 | EKG ---
Test Reason : Blood Pressure : / mmHG Vent. Rate : 152 BPM Atrial Rate : 152 BPM P-R Int : 000 ms QRS Dur : 100 ms QT Int : 280 ms P-R-T Axes : 119 053 -15 degrees QTc Int : 445 ms Sinus tachycardia Incomplete right bundle branch block T wave abnormality, consider anterior ischemia Abnormal ECG Confirmed by FER STUBBS ([id number]) on 07/09/2019 4:53:29 PM Referred By: MASSIEL Confirmed By:FER STUBBS
[2019-07-09] MEDS: Aluminum & Magnesium Hydroxide 60 ML, Lidocaine 2% Viscous Solution 30 ML, diphenhydrAM... SSW PRN (17:03)
--- NOTE | 2019-07-09 18:03 | PRG ---
DATE OF SERVICE: 07/09/2019 SUBJECTIVE: Feeling better, being transferred to the [facility]. She is eating her dinner. No headaches. Developed herpetic outbreak in the in the mouth. OBJECTIVE: LUNGS: Symmetric air entry. HEART: S1 and S2. ABDOMEN: Flat, soft, nontender. EXTREMITIES: Moves extremities equally. : Still with a Puentes catheter in place. LABORATORY DATA: White cell count is 16.9, hemoglobin 10.7, platelets 234 with 83% neutrophils. Creatinine 0.56. The transaminases are improved and are normalized. Alkaline phosphatase has been normal all along bilirubin normal. We have not repeated blood cultures. The previous blood cultures with Clostridium perfringens, Streptococcus pneumoniae, Klebsiella pneumoniae, and Proteus mirabilis. There are susceptible phenotypes. IMAGING STUDIES: Repeat chest x-ray with normal heart size, pulmonary vascular congestion, pleural effusions, left-sided PICC line. ASSESSMENT AND DISCUSSION: Long-standing rheumatoid arthritis, on leflunomide and prednisone. Recent episode of upper GI bleeding. Sepsis with sigmoid colon thickening and polymicrobial bacteremia including anaerobes, Enterobacter, Klebsiella, Streptococcus pneumoniae. The origin of this bacteremia is probably the area of inflamed colon. This could be secondary bacteremia from a primary process, which could involve an opportunistic process, which was not apparent during the colonoscopy. The assays are pending at this time. Currently, the patient is on methylprednisolone, which is going to make that white cell count started going up. She is on micafungin and Zosyn, and we will add acyclovir for her eruption in the mouth area. Job ID: [id number]
--- NOTE | 2019-07-09 18:13 | PRG ---
DATE OF SERVICE: 07/09/2019 SUBJECTIVE: Ameena Parrish is doing well today. She is tolerating her diet. She is in IMCU due to atrial fibrillation/atrial flutter. OBJECTIVE: VITAL SIGNS: degrees, blood pressure 152/87, heart rate 107. LUNGS: Clear to auscultation. CARDIAC: Regular rate and rhythm without murmur or gallop. ABDOMEN: Soft. Midline wound intact. Abdomen is nontender. LABORATORY DATA: Her white count today is 16, hemoglobin 10.7. The patient has complaints of oral pain and has skin changes perioral. Dr. Navarro is evaluating that. At this point, we would continue care, move to the telemetry room when her atrial fibrillation is under control. At this point, she has good bowel function. She had her surgery on 07/05/2019 and we would remove her galo next week. At this point, I will see her as needed in this hospitalization. Please call if necessary. We will plan to remove her galo on July 12. . Job ID: [id number]
[2019-07-09] MEDS: Cyclobenzaprine 10 MG TAB PO SCH (19:53)
[2019-07-09] MEDS: Enoxaparin Sodium 40 MG/0.4 ML SYRINGE SC SCH (19:54)
[2019-07-09] MEDS: Acyclovir 400 mg Tablet PO SCH (20:08)
--- NOTE | 2019-07-09 21:42 | PRG ---
DATE OF SERVICE: 07/09/2019 SUBJECTIVE: Ameena Parrish had her daughter from [place] at the bedside. Her daughter had not seen her in 2 years. She did arrive yesterday and said she thought she looked better today and I would agree that she looks better today overall. OBJECTIVE: VITAL SIGNS: She is afebrile. Heart rate 73, respiratory rate 27, oximetry is 98% on 2 L, blood pressure 149/89. LUNGS: Clear. HEART: Regular rhythm. ABDOMEN: Soft. EXTREMITIES: Without edema. LABORATORY DATA: White count is 16.9, hemoglobin 10.7, platelets 234. Electrolytes are unremarkable. BUN is 14, creatinine 0.56. IMPRESSION: Polymicrobial sepsis, most likely secondary to colitis in an immunocompromised host. Overall, she seems stable on antimicrobial therapy. She did have an ACTH stimulation test that did not show significant adrenal function that would be certainly adequate for her stress. She needs to remain on steroids. Job ID: [id number] MTDD
[2019-07-10] MEDS: Piperacillin/Tazobactam 3.375 GM in Sodium Chloride 0.9% 100 ML IVPB SCH ×4 (00:24→17:26)
[2019-07-10] MEDS: traMADol HCl 50 MG TAB PO PRN ×3 (01:01→21:32)
[2019-07-10 06:19] LABS: Band 1 % (5-11); Hemoglobin 10.7 g/dL (12.0-16.0); Hypochromia SLIGHT = 6-15 cells (100X) (0-5/hpf); Lymphocytes 3 % (21-51); MDiff Complete? YES; Mean Corpuscular HGB CONC 30.6 g/dL (32.0-36.0); Mean Corpuscular Hemoglobin 23.1 pg (27.0-31.0); Mean Corpuscular Volume 75.5 fL (78.0-98.0); Mean Platelet Volume 6.7 fL (7.4-10.4); Microcytosis SLIGHT = 6-15 cells (100X) (0-5/hpf); Monocytes 1 % (0-10); Neutrophil 95 % (42-75); Platelet Count 254 thou/uL (130-400); Platelet Morphology Comment Appears Adequate; RBC Distribution Width 26.3 % (11.5-14.5); Red Blood Cell (RBC) Count 4.63 mill/uL (4.20-5.40); White Blood Cell (WBC) Count 20.2 thou/uL (4.8-10.8)
[2019-07-10] MEDS ORDERED: Dextrose 5% in Water 1,000 ML IV PRN (07:25)
[2019-07-10] MEDS ORDERED: Dextrose 50% Abboject 50 ML SYRINGE SLOW IVP PRN (07:25)
--- NOTE | 2019-07-10 08:08 | RAD ---
RADIOGRAPH CHEST 1 VIEW: DATE: 07/10/2019 TIME: 4:29 AM HISTORY: 69-year-old female in respiratory distress COMPARISON: 07/09/2019 FINDINGS: Left-sided PICC. No cardiomegaly. Bilateral pleural effusions. Complete silhouetting of the left kain diaphragm. Dense left retrocardiac left lower lobe base consolidation. Increased attenuation of right base. Pulmonary venous congestion appears slightly improved. Pulmonary interstitial edema has p robably improved. No pneumothorax. IMPRESSION: 1. Bilateral pleural effusions and bibasilar pulmonary airspace densities, left greater than right. U nchanged. 2. Mild interval improvement in the mild noncardiogenic pulmonary interstitial edema.
[2019-07-10] MEDS: Aluminum & Magnesium Hydroxide 60 ML, Lidocaine 2% Viscous Solution 30 ML, diphenhydrAM... SSW PRN ×3 (09:30→17:27)
[2019-07-10] MEDS: methylPREDNISolone Sod Succ 40 MG VIAL IVP SCH ×2 (09:31→21:29)
[2019-07-10] MEDS: Micafungin 100 MG in Sodium Chloride 0.9% 100 ML IVPB SCH (09:32)
[2019-07-10] MEDS: Acyclovir 400 mg Tablet PO SCH ×3 (09:32→21:29)
--- NOTE | 2019-07-10 13:10 | PRG ---
DATE OF SERVICE: 07/10/2019 SUBJECTIVE: Ameena Parrish has no new complaints. She has a resting tachycardia with a heart rate of [address] Kenyon to see her and review the rhythm strips. OBJECTIVE: VITAL SIGNS: Her blood pressure is 160/107, respiratory rate in the 20s. LUNGS: Clear. HEART: Regular rhythm. ABDOMEN: Soft. She is not tender. LABORATORY DATA: White count 20.2, hemoglobin 10.7, platelets 254. Sodium 139, potassium 4.7, chloride 98, bicarb 34, BUN 14, creatinine 0.56. IMPRESSION: 1. Abdominal sepsis, status post laparotomy with colitis, being identified without perforation. 2. Bacteremia, but it is polymicrobial. 3. Deconditioning. 4. Rheumatoid arthritis. 5. Chronic immunosuppressive use. 6. Adrenal insufficiency with a baseline cortisol, it was less than 1. Her steroids can be gradually tapered. Job ID: [id number]
--- NOTE | 2019-07-10 14:50 | PDOC.HOSPP ---
- Subjective Encounter Date: 07/10/19 Encounter Time: 14:46 Subjective: 69 y/o female with rheumatoid arthritis on chronic steroid and lefluonamide admitted with septic shock. Fever has subsided. Developed abdominal tenderness and frequent loose and was seen by surgery and subsequently had laparotomy which showed colitis. Clinically improved with broad spectrum. Feeling better today. Oraol intake is better with magic mouthwash. - Objective Vital Signs & Weight: Vital Signs (12 hours) Temp Pulse Resp Pulse Ox 07/10/19 14:12 99 22 H 92 L 07/10/19 11:09 98.8 F 07/10/19 08:04 96 07/10/19 07:14 97.8 F 07/10/19 03:38 97.5 F L Weight Admit Weight 80 lb 11.027 oz Weight 91 lb 9 oz Most Recent Monitor Data Heart Rate from ECG 132 NIBP 161/109 NIBP BP-Mean 126 Respiration from ECG 26 SpO2 92 I&O: 07/09/19 07/10/19 07/11/19 06:59 06:59 06:59 Intake Total 2599 1024 Output Total 3400 3345 Balance -801 -2321 Result Diagrams: 07/10/19 05:45 07/09/19 04:10 Hospitalist ROS - Medication Medications: Active Medications Generic Name Dose Route Start Last Admin Trade Name Freq PRN Reason Stop Dose Admin Acyclovir 400 mg 07/09/19 21:00 07/10/19 09:32 Zovirax PO 400 mg TID OLINDA Administration Albuterol/Ipratropium 3 ml 07/04/19 19:00 07/10/19 14:12 Duoneb NEB 3 ml [id number] OLINDA Administration Al Hydroxide/Mg Hydroxide 60 0 ml 07/09/19 16:15 07/10/19 11:46 ml/ Lidocaine HCl 30 ml/ SSW 10 ml Diphenhydramine HCl 75 mg PRN PRN Administration Mouth Irritation Cyclobenzaprine HCl 10 mg 07/06/19 21:00 07/09/19 19:53 Flexeril PO 10 mg HS OLINDA Administration Diltiazem HCl 30 mg 07/09/19 18:00 07/10/19 11:45 Cardizem PO 30 mg Q6HR OLINDA Administration Enoxaparin Sodium 40 mg 07/06/19 21:00 07/09/19 19:54 Lovenox SC 40 mg 2100 OLINDA Administration Piperacillin Sod/Tazobactam 100 mls @ 200 mls/hr 07/05/19 23:59 07/10/19 11: 46 Sod 3.375 gm/ Sodium Chloride IVPB 100 mls Q6HR OLINDA Administration Micafungin Sodium 100 mg/ 100 mls @ 100 mls/hr 07/06/19 10:00 07/10/19 09:32 Sodium Chloride IVPB 100 mls Q24H OLINDA Administration Diltiazem HCl 125 mg/ 125 mls @ 0 mls/hr 07/07/19 15:30 07/08/19 19:22 Miscellaneous Medication 1 IVPB 125 mls each/ Sodium Chloride INF OLINDA Administration Protocol As Directed Melatonin 3 mg 07/04/19 22:06 07/04/19 22:44 Melatonin PO 3 mg HS PRN Administration Insomnia Ondansetron HCl 4 mg 07/04/19 13:54 07/05/19 08:09 Zofran IVP 4 mg Q6H PRN Administration Nausea/Vomiting Pantoprazole Sodium 40 mg 07/08/19 09:00 07/10/19 09:32 Protonix PO 40 mg DAILY OLINDA Administration Sodium Chloride 10 ml 07/10/19 09:00 07/10/19 09:32 Flush - Normal Saline IVF 10 ml Q12HR OLINDA Administration Tramadol HCl 50 mg 07/06/19 15:20 07/10/19 11:49 Ultram PO 50 mg Q4H PRN Administration Pain - Exam General Appearance: awake alert General - other findings: thin and cachetic Eye: anicteric sclera ENT: normocephalic atraumatic Neck: supple, symmetric Heart: RRR Respiratory: no wheezes, no ronchi Respiratory - other findings: fair air entry bilaterally with scattered crackles and transmitted sound Gastrointestinal: soft, non-distended, normal bowel sounds Extremities: no cyanosis, no edema Neurological: CN's grossly intact, no focal deficits Psychiatric: normal affect, A&O x 3 Hosp A/P (1) Bacteremia Code(s): R78.81 - BACTEREMIA Status: Acute (2) Septic shock Code(s): A41.9 - SEPSIS, UNSPECIFIED ORGANISM; R65.21 - SEVERE SEPSIS WITH SEPTIC SHOCK Status: Acute (3) HERMINIA (acute kidney injury) Code(s): N17.9 - ACUTE KIDNEY FAILURE, UNSPECIFIED Status: Acute (4) Rhabdomyolysis Code(s): M62.82 - RHABDOMYOLYSIS Status: Acute (5) Syncope and collapse Code(s): R55 - SYNCOPE AND COLLAPSE Status: Acute (6) Hypokalemia Code(s): E87.6 - HYPOKALEMIA Status: Acute (7) Effusion of joint of both shoulders Code(s): M25.411 - EFFUSION, RIGHT SHOULDER; M25.412 - EFFUSION, LEFT SHOULDER Status: Acute (8) Abdominal tenderness, generalized Code(s): R10.817 - GENERALIZED ABDOMINAL TENDERNESS Status: Acute (9) PUD (peptic ulcer disease) Code(s): K27.9 - PEPTIC ULC, SITE UNSP, UNSP AC OR CHR, W/O HEMOR OR PERF Status: Acute (10) Frequent loose stools Code(s): R19.7 - DIARRHEA, UNSPECIFIED Status: Acute (11) Leukemoid reaction Code(s): D72.823 - LEUKEMOID REACTION Status: Acute (12) Tobacco abuse disorder Code(s): Z72.0 - TOBACCO USE Status: Acute (13) COPD exacerbation Code(s): J44.1 - CHRONIC OBSTRUCTIVE PULMONARY DISEASE W (ACUTE) EXACERBATION Status: Acute (14) Metabolic acidosis Code(s): E87.2 - ACIDOSIS Status: Acute (15) Elevated troponin Code(s): R74.8 - ABNORMAL LEVELS OF OTHER SERUM ENZYMES Status: Acute (16) Hypomagnesemia Code(s): E83.42 - HYPOMAGNESEMIA Status: Acute (17) Colitis Code(s): K52.9 - NONINFECTIVE GASTROENTERITIS AND COLITIS, UNSPECIFIED Status : Acute (18) Tachycardia with heart rate 100-120 beats per minute Code(s): R00.0 - TACHYCARDIA, UNSPECIFIED Status: Acute (19) S/P exploratory laparotomy Status: Acute (20) Acute oral pain Code(s): K13.79 - OTHER LESIONS OF ORAL MUCOSA Status: Acute (21) Oral herpes Code(s): B00.2 - HERPESVIRAL GINGIVOSTOMATITIS AND PHARYNGOTONSILLITIS Status : Acute - Plan Continue antimicrobial as per ID Continue oral cardizem Continue magic moutwash for oral pain. Replete serum potassium and magnesium as needed. Continue other supportive care.
--- NOTE | 2019-07-10 15:41 | PRG ---
DATE OF SERVICE: 07/10/2019 SUBJECTIVE: Ms. Parrish is resting in bed. She states she did not have much of an appetite today, although she has eaten some. Nurse reports she had some dark stools. Dr. Navarro feels that the lesion in the mouth is herpetic. OBJECTIVE: VITAL SIGNS: Temperature is 98, pulse 99, respirations 18, and blood pressure 160/109. HEENT: She has some blistering on lips. She has no oral lesions. NECK: Supple. No adenopathy. LABORATORY DATA: White count 20.2, hemoglobin 10.7, platelet count 254. Sodium 139, potassium 4.7, BUN and creatinine are 14 and 0.5. ASSESSMENT: 1. Adrenal insufficiency, on steroids. 2. Bacteremia, multiple organisms. The Infectious Disease thinks is prior translocation related to her mildly inflamed colon, which was reported on CAT scan. Recently, she had a colonoscopy just last admission within the last month that showed no active inflammation in this area. 3. She has a gastric ulcers, NSAID related. It is very deep in the antrum of the stomach. I talked with General Surgery. They did not feel there are any signs of perforation. 4. Burning mouth and some blisters and scalding in the skin of the lips. 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 RECOMMENDATIONS: 1. Continue PPI. 2. Continue stress dose steroids. 3. Dr. Arboleda, my partner, will be home extension agent for the weekend. Please call if needed, otherwise I will follow up with her on Saturday. There have been no signs of active GI bleeding or intestinal issues at this point. Job ID: [id number]
[2019-07-10] MEDS: Enoxaparin Sodium 40 MG/0.4 ML SYRINGE SC SCH (21:29)
[2019-07-10] MEDS: Cyclobenzaprine 10 MG TAB PO SCH (21:29)
--- NOTE | 2019-07-11 00:21 | CON ---
DATE OF CONSULTATION: 07/10/2019 REASON FOR CONSULTATION: Tachycardia. HISTORY OF PRESENT ILLNESS: Ms. Parrish is a delightful 69-year-old woman who has been admitted to the hospital with septic shock. She has had multiple organisms, which grew out of her blood stream including Klebsiella Clostridium, strep, and Proteus as 07/04. The patient has had intermittent tachycardia here. No chest pain or pressure. There was some concern that it could have been something other than sinus tachycardia. The patient is currently resting comfortably. No previous cardiac history. MEDICATIONS: At home, she was taking, 1. Prednisone. 2. Protonix. Here, she is on, 1. Diltiazem low-dose. 2. Pipracil. 3. Low-dose beta rosalind. 4. Enoxaparin. 5. Methylprednisolone. REVIEW OF SYSTEMS: CONSTITUTIONAL: Positive for weakness and fatigue. VISION: No changes. HEARING: No changes. PULMONARY: No cough or wheezing. GASTROINTESTINAL: No nausea, vomiting, or diarrhea. SKIN: No rashes. NEUROLOGIC: No unilateral weakness or numbness. PSYCHIATRIC: No unusual depression or anxiety. HEMATOLOGIC: No unusual bruising. GENITOURINARY: No burning with urination. PHYSICAL EXAMINATION: GENERAL: It is a pleasant elderly woman. She is somewhat frail-appearing. VITAL SIGNS: Blood pressure 146/89, pulse is 108, sinus tachycardia. HEENT: Eyes, sclerae are nonicteric. Mouth; mucous membranes moist. NECK: Supple. No lymphadenopathy. LUNGS: Clear. No wheezing, rales, or rhonchi. CARDIAC: She is tachycardic. I do not hear a murmur, rub, or gallop. ABDOMEN: Soft, nontender. EXTREMITIES: Warm, dry. No clubbing, cyanosis, or edema. She has good dorsalis pedis pulses bilaterally. PERTINENT LABORATORY DATA: Hemoglobin is 10.7 and WBC 20.2, was as high as 53.5. EKG; all looks like sinus tachycardia. She had one episode of V-tach, 15 beats, rate of 150. ASSESSMENT: 1. Sinus tachycardia, probably related to underlying recent infection and overall stress of major recent illness. 2. Echocardiogram showed normal left ventricular function. No significant valvular heart abnormalities. Normal ejection fraction. Some mild diastolic dysfunction, which is very common at this age. 3. Ventricular tachycardia, one episode with normal left ventricular function. PLAN: Continue supportive care. No further recommendations at this point. Job ID: [id number]
[2019-07-11] MEDS: Piperacillin/Tazobactam 3.375 GM in Sodium Chloride 0.9% 100 ML IVPB SCH ×5 (00:28→23:12)
[2019-07-11 06:55] LABS: Band 17 % (5-11); Hemoglobin 11.8 g/dL (12.0-16.0); Lymphocytes 2 % (21-51); MDiff Complete? YES; Mean Corpuscular HGB CONC 30.3 g/dL (32.0-36.0); Mean Corpuscular Volume 76.1 fL (78.0-98.0); Mean Platelet Volume 6.1 fL (7.4-10.4); Monocytes 1 % (0-10); Neutrophil 80 % (42-75); Platelet Count 321 thou/uL (130-400); Platelet Morphology Comment Appears Adequate; RBC Distribution Width 26.6 % (11.5-14.5); Red Blood Cell (RBC) Count 5.14 mill/uL (4.20-5.40); White Blood Cell (WBC) Count 20.9 thou/uL (4.8-10.8)
[2019-07-11] MEDS: Aluminum & Magnesium Hydroxide 60 ML, Lidocaine 2% Viscous Solution 30 ML, diphenhydrAM... SSW PRN (07:33)
[2019-07-11] MEDS: traMADol HCl 50 MG TAB PO PRN ×3 (07:35→20:50)
--- NOTE | 2019-07-11 07:41 | RAD ---
EXAM: Portable chest PROVIDED CLINICAL HISTORY: Respiratory insufficiency COMPARISON: 07/10/2019 FINDINGS: Significant interval change with respect to the prior examination is not apparent. IMPRESSION: As above.
[2019-07-11] MEDS ORDERED: Artificial Tears 18 DROP/0.9 ML EA EYE PRN (08:46)
[2019-07-11] MEDS ORDERED: Calcium Carbonate 500 MG ChewTAB PO PRN (08:46)
[2019-07-11] MEDS ORDERED: Diabetic Tussin 200 MG/10 ML UDCUP PO PRN (08:46)
[2019-07-11] MEDS ORDERED: Bisacodyl 10 MG SUPP PR PRN (08:46)
[2019-07-11] MEDS ORDERED: Loratadine 10 MG TAB PO PRN (08:46)
[2019-07-11] MEDS ORDERED: hydrALAZINE 20 MG/ML VIAL SLOW IVP PRN (08:46)
[2019-07-11] MEDS ORDERED: Sodium Chloride 0.65% Nasal 44 ML BOT EA NARE PRN (08:46)
[2019-07-11] MEDS ORDERED: Senokot S 8.6-50 MG TAB PO PRN (08:46)
[2019-07-11] MEDS ORDERED: Amlodipine 5 MG TAB PO SCH (09:00)
--- NOTE | 2019-07-11 09:25 | PRG ---
DATE OF SERVICE: 07/11/2019 SUBJECTIVE: Ms. Parrish does not feel well today. OBJECTIVE: VITAL SIGNS: Her blood pressure is somewhat high at 179/109, pulse is 90. LUNGS: Clear. CARDIAC: Normal S1. Normal S2. ASSESSMENT: 1. Hypertension. 2. Nonsustained ventricular tachycardia. 3. Previous sepsis. 4. Sinus tachycardia. PLAN: 1. Increase beta-blockers. 2. No other recommendations at this time. Job ID: [id number]
[2019-07-11] MEDS: Acyclovir 400 mg Tablet PO SCH ×3 (10:24→20:38)
[2019-07-11] MEDS: methylPREDNISolone Sod Succ 40 MG VIAL IVP SCH ×2 (10:27→20:39)
[2019-07-11] MEDS: Micafungin 100 MG in Sodium Chloride 0.9% 100 ML IVPB SCH (10:28)
--- NOTE | 2019-07-11 11:25 | PRG ---
DATE OF SERVICE: 07/11/2019 SUBJECTIVE: The patient is complaining of pain all over. This is not a different complaint from previous. OBJECTIVE: VITAL SIGNS: Temperature is 99.0, pulse 97, blood pressure 179/109, O2 saturation 95%. HEENT: Unremarkable except for herpetic lesions around her lips. NECK: No adenopathy or JVD. LUNGS: Clear anteriorly. CARDIAC: S1, S2. Regular. ABDOMEN: Mild tenderness right side. EXTREMITIES: No clubbing, cyanosis, or edema. LABORATORY DATA: White blood cell count 20.9, hematocrit 39.1, and platelet count 321. No chemistry was done today. Chest x-ray shows no change from previous. ASSESSMENT: 1. Abdominal sepsis. 2. Bacteremia that is polymicrobial. 3. Rheumatoid arthritis. 4. Chronically immunosuppressed. 5. Adrenal insufficiency. PLAN: Beta-rosalind has been increased by Cardiology. She is continuing antibiotics. Pulmonary status is stable. Job ID: [id number]
[2019-07-11] MEDS ORDERED: Multivit, Adult Inj 10 ML VIAL IV SCH (11:30)
[2019-07-11] MEDS ORDERED: Multivitamins, Adult 10 ML in Sodium Chloride 0.9% 500 ML IV SCH (11:45)
[2019-07-11] MEDS: Nystatin 500,000 UNITS/5 ML UDCUP SSW SCH ×3 (12:19→20:38)
[2019-07-11] MEDS: Sodium Chloride 0.45% 1,000 ML IV SCH (12:19)
--- NOTE | 2019-07-11 13:03 | PDOC.HOSPP ---
- Subjective Encounter Date: 07/11/19 Encounter Time: 10:45 Subjective: pt has oral pain and so she is not eating, family concerned about her intake - Objective Vital Signs & Weight: Vital Signs (12 hours) Temp Pulse Resp BP Pulse Ox 07/11/19 12:19 97 173/105 H 07/11/19 10:25 103 H 169/106 H 07/11/19 10:24 97.6 F 07/11/19 08:23 95 07/11/19 08:21 98 26 H 95 07/11/19 08:00 95 07/11/19 07:11 99.0 F 07/11/19 04:00 98.9 F Weight Admit Weight 80 lb 11.027 oz Weight 89 lb 8 oz Most Recent Monitor Data Heart Rate from ECG 97 NIBP 179/109 NIBP BP-Mean 132 Respiration from ECG 23 SpO2 95 I&O: 07/10/19 07/11/19 07/12/19 06:59 06:59 06:59 Intake Total 1024 2433 Output Total 3345 3910 Balance -5745 -2237 Result Diagrams: 07/11/19 06:18 07/09/19 04:10 Hospitalist ROS - Review of Systems Constitutional: reports: weakness, malaise. denies: fever, chills, sweats, other ENT: reports: mouth pain. denies: ear pain, ear discharge, nose pain, nose discharge, nose congestion, mouth swelling, throat pain, throat swelling, other Respiratory: denies: cough, dry, shortness of breath, hemoptysis, SOB with excertion, pleuritic pain, sputum, wheezing, other Cardiovascular: denies: chest pain, palpitations, orthopnea, paroxysmal noc. dyspnea, edema, light headedness, other Gastrointestinal: denies: nausea, vomitting, abdominal pain, diarrhea, constipation, melena, hematochezia, other Genitourinary: denies: dysuria, frequency, incontinence, hematuria, retention, other Musculoskeletal: denies: neck pain, shoulder pain, arm pain, back pain, hand pain, leg pain, foot pain, other - Medication Medications: Active Medications Generic Name Dose Route Start Last Admin Trade Name Freq PRN Reason Stop Dose Admin Acyclovir 400 mg 07/09/19 21:00 07/11/19 10:24 Zovirax PO 400 mg TID OLINDA Administration Albuterol/Ipratropium 3 ml 07/04/19 19:00 07/11/19 08:21 Duoneb NEB 3 ml [id number] OLINDA Administration Amlodipine Besylate 2.5 mg 07/11/19 09:00 07/11/19 10:25 Norvasc PO 2.5 mg DAILY OLINDA Administration Al Hydroxide/Mg Hydroxide 60 0 ml 07/09/19 16:15 07/11/19 07:33 ml/ Lidocaine HCl 30 ml/ SSW 10 ml Diphenhydramine HCl 75 mg PRN PRN Administration Mouth Irritation Cyclobenzaprine HCl 10 mg 07/06/19 21:00 07/10/19 21:29 Flexeril PO 10 mg HS OLINDA Administration Diltiazem HCl 30 mg 07/09/19 18:00 07/11/19 11:36 Cardizem PO 30 mg Q6HR OLINDA Administration Enoxaparin Sodium 40 mg 07/06/19 21:00 07/10/19 21:29 Lovenox SC 40 mg 2100 OLINDA Administration Hydralazine HCl 10 mg 07/11/19 08:46 07/11/19 12:19 Apresoline SLOW IVP 10 mg Q4H PRN Administration SBP > 180 and HR < 70 Piperacillin Sod/Tazobactam 100 mls @ 200 mls/hr 07/05/19 23:59 07/11/19 11: 35 Sod 3.375 gm/ Sodium Chloride IVPB 100 mls Q6HR OLINDA Administration Micafungin Sodium 100 mg/ 100 mls @ 100 mls/hr 07/06/19 10:00 07/11/19 10:28 Sodium Chloride IVPB 100 mls Q24H OLINDA Administration Diltiazem HCl 125 mg/ 125 mls @ 0 mls/hr 07/07/19 15:30 07/08/19 19:22 Miscellaneous Medication 1 IVPB 125 mls each/ Sodium Chloride INF OLINDA Administration Protocol As Directed Sodium Chloride 1,000 mls @ 50 mls/hr 07/11/19 11:30 07/11/19 12:19 1/2 Normal Saline IV 1,000 mls .Q20H OLINDA Administration Multivitamins 10 ml/ Sodium 510 mls @ 125 mls/hr 07/11/19 11:45 07/11/19 12: 18 Chloride IV 07/11/19 15:50 510 mls NOW OLINDA Administration Melatonin 3 mg 07/04/19 22:06 07/04/19 22:44 Melatonin PO 3 mg HS PRN Administration Insomnia Methylprednisolone Sodium Succinate 20 mg 07/10/19 21:00 07/11/19 10:27 Solu-Medrol IVP 20 mg BID OLINDA Administration Metoprolol Succinate 50 mg 07/11/19 09:00 07/11/19 10:27 Toprol Xl PO 50 mg DAILY OLINDA Administration Nystatin 500,000 units 07/11/19 13:00 07/11/19 12:19 Mycostatin SSW 500,000 units QID OLINDA Administration Ondansetron HCl 4 mg 07/04/19 13:54 07/05/19 08:09 Zofran IVP 4 mg Q6H PRN Administration Nausea/Vomiting Pantoprazole Sodium 40 mg 07/08/19 09:00 07/11/19 10:28 Protonix PO 40 mg DAILY OLINDA Administration Sodium Chloride 10 ml 07/10/19 09:00 07/11/19 10:28 Flush - Normal Saline IVF 10 ml Q12HR OLINDA Administration Sodium Chloride 10 ml 07/10/19 07:28 07/11/19 12:20 Flush - Normal Saline IVF 10 ml PRN PRN Administration Saline Flush Tramadol HCl 50 mg 07/06/19 15:20 07/11/19 11:36 Ultram PO 50 mg Q4H PRN Administration Pain - Exam General Appearance: NAD, ill appearing Eye: PERRL, anicteric sclera ENT: normocephalic atraumatic, no oropharyngeal lesions Neck: supple, symmetric, no JVD, no thyromegaly Heart: RRR, no murmur, no gallops Respiratory: CTAB, no wheezes, no rales Gastrointestinal: soft, non-distended, normal bowel sounds Extremities: no cyanosis, no clubbing Skin: normal turgor, no lesions Neurological: CN's grossly intact, normal sensation to touch Musculoskeletal: normal tone, normal strength Psychiatric: normal affect, normal behavior Hosp A/P (1) Septic shock Code(s): A41.9 - SEPSIS, UNSPECIFIED ORGANISM; R65.21 - SEVERE SEPSIS WITH SEPTIC SHOCK Status: Resolved (2) Bacteremia Code(s): R78.81 - BACTEREMIA Status: Acute Plan: polymicrobial (3) Colitis Code(s): K52.9 - NONINFECTIVE GASTROENTERITIS AND COLITIS, UNSPECIFIED Status : Acute (4) Oral herpes Code(s): B00.2 - HERPESVIRAL GINGIVOSTOMATITIS AND PHARYNGOTONSILLITIS Status : Acute (5) S/P exploratory laparotomy Status: Acute (6) Tachycardia with heart rate 100-120 beats per minute Code(s): R00.0 - TACHYCARDIA, UNSPECIFIED Status: Acute (7) Tobacco abuse disorder Code(s): Z72.0 - TOBACCO USE Status: Acute (8) Adrenal insufficiency Code(s): E27.40 - UNSPECIFIED ADRENOCORTICAL INSUFFICIENCY Status: Acute (9) Immunosuppressed status Code(s): D89.9 - DISORDER INVOLVING THE IMMUNE MECHANISM, UNSPECIFIED Status: Chronic (10) Rheumatoid arthritis Code(s): M06.9 - RHEUMATOID ARTHRITIS, UNSPECIFIED Status: Chronic (11) Protein-calorie malnutrition, moderate Code(s): E44.0 - MODERATE PROTEIN-CALORIE MALNUTRITION Status: Acute - Plan old records reviewed/req, plan discussed w/ family, continue antibiotics will add nystatin SSW will add 1/2 NS with multivitamin continue micafungin, zovirex, zosyn nutritional supplement medication reviewed as above symptomatic treatment will need placement will need early removal once ambulatory
[2019-07-11 15:09] LABS: Routine O & P Final report (.)
[2019-07-11 17:08] LABS: Cyclospora Smear-Stool None seen (None seen)
[2019-07-11] MEDS: Acetaminophen 500 MG TAB PO PRN ×2 (18:37→23:12)
[2019-07-11] MEDS: Cyclobenzaprine 10 MG TAB PO SCH (20:38)
[2019-07-11] MEDS: Enoxaparin Sodium 40 MG/0.4 ML SYRINGE SC SCH (20:39)
[2019-07-11] MEDS: Cepastat Lozenges 1 LOZ PO PRN (23:12)
[2019-07-12 04:45] LABS: ALT (SGPT) 47 U/L (8-55); AST (SGOT) 31 U/L (5-34); Alkaline Phosphatase 175 U/L (40-150); Anion Gap 9 mmol/L (10-20); BUN (Urea Nitrogen) 14 mg/dL (9.8-20.1); Bilirubin, Total 0.6 mg/dL (0.2-1.2); Calc. Creatinine Clearance 60 mL/min (70-130); Calcium 8.9 mg/dL (7.8-10.44); Carbon Dioxide 33 mmol/L (23-31); Chloride 96 mmol/L (98-107); Estimated GFR-MDRD Greater than 90; Glucose 220 mg/dL (80-115); Magnesium 1.7 mg/dL (1.6-2.6); Sodium 134 mmol/L (136-145)
[2019-07-12 04:49] LABS: Band 6 % (5-11); Elliptocytes SLIGHT = 2-5 cells (100X) (0-1/hpf); Hemoglobin 11.9 g/dL (12.0-16.0); Lymphocytes 9 % (21-51); MDiff Complete? YES; Mean Corpuscular HGB CONC 30.3 g/dL (32.0-36.0); Mean Corpuscular Hemoglobin 22.8 pg (27.0-31.0); Mean Corpuscular Volume 75.2 fL (78.0-98.0); Mean Platelet Volume 6.5 fL (7.4-10.4); Microcytosis SLIGHT = 6-15 cells (100X) (0-5/hpf); Monocytes 5 % (0-10); Neutrophil 80 % (42-75); Platelet Count 312 thou/uL (130-400); Platelet Morphology Comment Appears Adequate; RBC Distribution Width 26.8 % (11.5-14.5); Red Blood Cell (RBC) Count 5.24 mill/uL (4.20-5.40); White Blood Cell (WBC) Count 17.6 thou/uL (4.8-10.8)
[2019-07-12] MEDS: Piperacillin/Tazobactam 3.375 GM in Sodium Chloride 0.9% 100 ML IVPB SCH ×4 (05:38→23:19)
[2019-07-12] MEDS: Aluminum & Magnesium Hydroxide 60 ML, Lidocaine 2% Viscous Solution 30 ML, diphenhydrAM... SSW PRN ×4 (08:56→23:30)
[2019-07-12] MEDS: Sodium Chloride 0.45% 1,000 ML IV SCH (08:56)
[2019-07-12] MEDS: Amlodipine 5 MG TAB PO SCH (08:57)
[2019-07-12] MEDS: Acyclovir 400 mg Tablet PO SCH ×3 (08:57→20:29)
[2019-07-12] MEDS: methylPREDNISolone Sod Succ 40 MG VIAL IVP SCH ×2 (08:57→20:30)
[2019-07-12] MEDS: Nystatin 500,000 UNITS/5 ML UDCUP SSW SCH ×4 (08:58→20:30)
[2019-07-12] MEDS: traMADol HCl 50 MG TAB PO PRN ×2 (08:59→20:29)
[2019-07-12] MEDS: Cepastat Lozenges 1 LOZ PO PRN (09:01)
--- NOTE | 2019-07-12 09:32 | PRG ---
DATE OF SERVICE: 07/12/2019 SUBJECTIVE: Shivani says she feels somewhat better today. No chest pain or pressure. OBJECTIVE: VITAL SIGNS: Blood pressure is high 164/93, pulse has improved to 100 and sinus. LUNGS: Clear. CARDIAC: Normal S1, normal S2. ABDOMEN: Soft and nontender. ASSESSMENT: 1. Previous sepsis. 2. Sinus tachycardia, improving. 3. Hypertension. PLAN: Increase amlodipine to 5 mg a day. No other changes. Dr. Garcia will check the patient tomorrow. Job ID: [id number]
[2019-07-12] MEDS: Acetaminophen 500 MG TAB PO PRN (10:41)
[2019-07-12] MEDS: Micafungin 100 MG in Sodium Chloride 0.9% 100 ML IVPB SCH (10:41)
--- NOTE | 2019-07-12 12:40 | PDOC.HOSPP ---
- Subjective Encounter Date: 07/12/19 Encounter Time: 11:00 Subjective: Patient seen and examined. No new complaints. No overnight events still has oral pain and has poor PO intake - Objective Vital Signs & Weight: Vital Signs (12 hours) Temp Pulse BP Pulse Ox 07/12/19 11:31 98.6 F 07/12/19 08:57 97 173/105 H 07/12/19 08:00 93 L 07/12/19 07:20 97.8 F 07/12/19 04:00 97.8 F Weight Admit Weight 80 lb 11.027 oz Weight 85 lb 3.2 oz Most Recent Monitor Data Heart Rate from ECG 94 NIBP 170/99 NIBP BP-Mean 122 Respiration from ECG 23 SpO2 91 I&O: 07/11/19 07/12/19 07/13/19 06:59 06:59 06:59 Intake Total 2433 3174.0 Output Total 4750 2825 Balance -2317 349.0 Result Diagrams: 07/12/19 04:16 07/12/19 04:16 EKG Reviewed by me: Yes (nsr) Hospitalist ROS - Review of Systems Constitutional: reports: weakness, malaise. denies: fever, chills, sweats, other ENT: reports: mouth pain. denies: ear pain, ear discharge, nose pain, nose discharge, nose congestion, mouth swelling, throat pain, throat swelling, other Respiratory: denies: cough, dry, shortness of breath, hemoptysis, SOB with excertion, pleuritic pain, sputum, wheezing, other Cardiovascular: denies: chest pain, palpitations, orthopnea, paroxysmal noc. dyspnea, edema, light headedness, other Gastrointestinal: denies: nausea, vomitting, abdominal pain, diarrhea, constipation, melena, hematochezia, other Genitourinary: denies: dysuria, frequency, incontinence, hematuria, retention, other Musculoskeletal: denies: neck pain, shoulder pain, arm pain, back pain, hand pain, leg pain, foot pain, other Skin: denies: rash, lesions, shawn, bruising, other - Medication Medications: Active Medications Generic Name Dose Route Start Last Admin Trade Name Freq PRN Reason Stop Dose Admin Acetaminophen 1,000 mg 07/07/19 20:30 07/12/19 10:41 Tylenol PO 1,000 mg Q6H PRN Administration Moderate to Severe Pain (6-10) Acyclovir 400 mg 07/09/19 21:00 07/12/19 08:57 Zovirax PO 400 mg TID OLINDA Administration Amlodipine Besylate 5 mg 07/12/19 09:00 07/12/19 08:57 Norvasc PO 5 mg DAILY OLINDA Administration Al Hydroxide/Mg Hydroxide 60 0 ml 07/09/19 16:15 07/12/19 11:38 ml/ Lidocaine HCl 30 ml/ SSW 30 ml Diphenhydramine HCl 75 mg PRN PRN Administration Mouth Irritation Cyclobenzaprine HCl 10 mg 07/06/19 21:00 07/11/19 20:38 Flexeril PO 10 mg HS OLINDA Administration Diltiazem HCl 30 mg 07/09/19 18:00 07/12/19 11:37 Cardizem PO 30 mg Q6HR OLINDA Administration Enoxaparin Sodium 40 mg 07/06/19 21:00 07/11/19 20:39 Lovenox SC 40 mg 2100 OLINDA Administration Hydralazine HCl 10 mg 07/11/19 08:46 07/11/19 12:19 Apresoline SLOW IVP 10 mg Q4H PRN Administration SBP > 180 and HR < 70 Piperacillin Sod/Tazobactam 100 mls @ 200 mls/hr 07/05/19 23:59 07/12/19 11: 37 Sod 3.375 gm/ Sodium Chloride IVPB 100 mls Q6HR OLINDA Administration Micafungin Sodium 100 mg/ 100 mls @ 100 mls/hr 07/06/19 10:00 07/12/19 10:41 Sodium Chloride IVPB 100 mls Q24H OLINDA Administration Diltiazem HCl 125 mg/ 125 mls @ 0 mls/hr 07/07/19 15:30 07/08/19 19:22 Miscellaneous Medication 1 IVPB 125 mls each/ Sodium Chloride INF OLINDA Administration Protocol As Directed Sodium Chloride 1,000 mls @ 50 mls/hr 07/11/19 11:30 07/12/19 08:56 1/2 Normal Saline IV 1,000 mls .Q20H OLINDA Administration Melatonin 3 mg 07/04/19 22:06 07/04/19 22:44 Melatonin PO 3 mg HS PRN Administration Insomnia Methylprednisolone Sodium Succinate 20 mg 07/10/19 21:00 07/12/19 08:57 Solu-Medrol IVP 20 mg BID OLINDA Administration Metoprolol Succinate 50 mg 07/11/19 09:00 07/12/19 08:57 Toprol Xl PO 50 mg DAILY OLINDA Administration Nystatin 500,000 units 07/11/19 13:00 07/12/19 08:58 Mycostatin SSW 500,000 units QID OLINDA Administration Ondansetron HCl 4 mg 07/04/19 13:54 07/05/19 08:09 Zofran IVP 4 mg Q6H PRN Administration Nausea/Vomiting Pantoprazole Sodium 40 mg 07/08/19 09:00 07/12/19 08:58 Protonix PO 40 mg DAILY OLINDA Administration Sodium Chloride 10 ml 07/10/19 09:00 07/12/19 08:58 Flush - Normal Saline IVF 10 ml Q12HR OLINDA Administration Sodium Chloride 10 ml 07/10/19 07:28 07/11/19 12:20 Flush - Normal Saline IVF 10 ml PRN PRN Administration Saline Flush Throat Lozenges 1 zia 07/11/19 08:46 07/12/19 09:01 Cepastat Lozenges PO 1 zia Q2H PRN Administration Sore Throat Tramadol HCl 50 mg 07/06/19 15:20 07/12/19 08:59 Ultram PO 50 mg Q4H PRN Administration Pain - Exam General Appearance: NAD, ill appearing Eye: PERRL, anicteric sclera ENT: normocephalic atraumatic, no oropharyngeal lesions Neck: supple, symmetric, no JVD Heart: RRR, no murmur, no gallops, no rubs Respiratory: CTAB, no wheezes, no rales Gastrointestinal: soft, non-tender, non-distended, normal bowel sounds Gastrointestinal - other findings: surgical site clean Extremities: no cyanosis, no clubbing, no edema Extremeties - other findings: early+ Skin: normal turgor, no lesions Neurological: no focal deficits Musculoskeletal: normal tone, normal strength Psychiatric: normal affect, normal behavior Hosp A/P (1) Septic shock Code(s): A41.9 - SEPSIS, UNSPECIFIED ORGANISM; R65.21 - SEVERE SEPSIS WITH SEPTIC SHOCK Status: Resolved (2) Bacteremia Code(s): R78.81 - BACTEREMIA Status: Acute (3) Colitis Code(s): K52.9 - NONINFECTIVE GASTROENTERITIS AND COLITIS, UNSPECIFIED Status : Acute (4) Oral herpes Code(s): B00.2 - HERPESVIRAL GINGIVOSTOMATITIS AND PHARYNGOTONSILLITIS Status : Acute (5) S/P exploratory laparotomy Status: Acute (6) Tachycardia with heart rate 100-120 beats per minute Code(s): R00.0 - TACHYCARDIA, UNSPECIFIED Status: Acute (7) Tobacco abuse disorder Code(s): Z72.0 - TOBACCO USE Status: Chronic (8) Adrenal insufficiency Code(s): E27.40 - UNSPECIFIED ADRENOCORTICAL INSUFFICIENCY Status: Acute (9) Immunosuppressed status Code(s): D89.9 - DISORDER INVOLVING THE IMMUNE MECHANISM, UNSPECIFIED Status: Chronic (10) Rheumatoid arthritis Code(s): M06.9 - RHEUMATOID ARTHRITIS, UNSPECIFIED Status: Chronic (11) Protein-calorie malnutrition, moderate Code(s): E44.0 - MODERATE PROTEIN-CALORIE MALNUTRITION Status: Acute - Plan old records reviewed/req, plan discussed w/ family, continue antibiotics, PT/OT , social staff worker continue micafungin, zovirex, zosyn nutritional supplement medication reviewed as above symptomatic treatment will need placement will need early removal once ambulatory supportive treatment amlodipine added
--- NOTE | 2019-07-12 13:01 | PRG ---
DATE OF SERVICE: 07/12/2019 SUBJECTIVE: She says she feels better today and had no acute complaints. OBJECTIVE: VITAL SIGNS: Temperature 97.8, pulse 94, blood pressure 170/99, O2 saturation 91%. HEENT: Unremarkable. NECK: No JVD. LUNGS: Distant, but clear breath sounds. CARDIAC: S1, S2 regular. ABDOMEN: Soft. EXTREMITIES: No edema. LABORATORY DATA: Sodium 134, BUN 14, creatinine 0.5, glucose 220. White blood cell count 17.6, hematocrit 39.4, and platelet count 312. ASSESSMENT: 1. Stable pulmonary status. 2. Abdominal sepsis. 3. Rheumatoid arthritis. 4. Adrenal insufficiency. PLAN: Continue antibiotics. No further recommendations at this time. Job ID: [id number]
--- NOTE | 2019-07-12 15:05 | PRG ---
DATE OF SERVICE: 07/12/2019 SUBJECTIVE: Only complaint is the stomatitis. Other than that, she denies any respiratory symptoms or abdominal pain. She has indwelling Puentes catheter. Denies diarrhea. OBJECTIVE: VITAL SIGNS: T-max of 98.6, BP 150/86, pulse 97. SKIN: The stomatitis particularly in the lower lip seems to be drying up. LUNGS: Symmetric with clear breath sounds. HEART: S1, S2. ABDOMEN: Soft, not distended. LABORATORY DATA: White cell count is 17.6, hemoglobin is 11.9, platelets are 312, 80% neutrophils. Sodium 134, creatinine 0.56. Liver profile normal except for alkaline phosphatase 175, albumin 3.0, and now the microbiology is negative except for the original cultures with Klebsiella and Clostridium, Strep pneumonia, Proteus mirabilis, likely originating from the colonic area previously noted. 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 Currently, on broad-spectrum coverage with micafungin, Zosyn, and Zovirax to be continued. Some assays are still pending for opportunistic infection. Job ID: [id number]
[2019-07-12] MEDS: Cyclobenzaprine 10 MG TAB PO SCH (20:29)
[2019-07-12] MEDS: Enoxaparin Sodium 40 MG/0.4 ML SYRINGE SC SCH (20:31)
[2019-07-13] MEDS: Aluminum & Magnesium Hydroxide 60 ML, Lidocaine 2% Viscous Solution 30 ML, diphenhydrAM... SSW PRN ×5 (01:08→17:25)
[2019-07-13] MEDS: traMADol HCl 50 MG TAB PO PRN ×4 (01:09→17:49)
[2019-07-13] MEDS: Sodium Chloride 0.45% 1,000 ML IV SCH ×2 (04:23→20:27)
[2019-07-13] MEDS: Piperacillin/Tazobactam 3.375 GM in Sodium Chloride 0.9% 100 ML IVPB SCH ×4 (05:03→23:46)
[2019-07-13 05:36] LABS: #Monocytes 0.7 thou/uL (0.11-0.59); %Basophils 0.1 % (0.0-1.0); %Eosinophils 0.2 % (0.0-10.0); %Lymphocytes 7.5 % (21.0-51.0); %Neutrophils 87.3 % (42.0-75.0); Hemoglobin 11.4 g/dL (12.0-16.0); Mean Corpuscular Hemoglobin 22.5 pg (27.0-31.0); Mean Corpuscular Volume 75.2 fL (78.0-98.0); Mean Platelet Volume 5.8 fL (7.4-10.4); Platelet Count 362 thou/uL (130-400); RBC Distribution Width 26.8 % (11.5-14.5); Red Blood Cell (RBC) Count 5.06 mill/uL (4.20-5.40); White Blood Cell (WBC) Count 13.7 thou/uL (4.8-10.8)
--- NOTE | 2019-07-13 07:26 | PDOC.HOSPP ---
- Subjective Encounter Date: 07/13/19 Encounter Time: 07:25 Subjective: alert, no GI complaints, oral lesions persist - Objective Vital Signs & Weight: Vital Signs (12 hours) Temp Pulse Ox 07/13/19 07:18 97.3 F L 07/13/19 04:00 97.9 F 07/12/19 23:51 98.8 F 07/12/19 20:00 98.5 F 92 L Weight Admit Weight 80 lb 11.027 oz Weight 82 lb 12.8 oz Most Recent Monitor Data Heart Rate from ECG 98 NIBP 136/111 NIBP BP-Mean 119 Respiration from ECG 24 SpO2 92 I&O: 07/12/19 07/13/19 07/14/19 06:59 06:59 06:59 Intake Total 3174.0 3480.5 Output Total 2825 3300 Balance 349.0 180.5 Result Diagrams: 07/13/19 05:13 07/12/19 04:16 Additional Labs: Accuchecks 07/13/19 06:04 POC Glucose 200 H Hospitalist ROS - Medication Medications: Active Medications Generic Name Dose Route Start Last Admin Trade Name Freq PRN Reason Stop Dose Admin Acetaminophen 1,000 mg 07/07/19 20:30 07/12/19 10:41 Tylenol PO 1,000 mg Q6H PRN Administration Moderate to Severe Pain (6-10) Acyclovir 400 mg 07/09/19 21:00 07/12/19 20:29 Zovirax PO 400 mg TID OLINDA Administration Amlodipine Besylate 5 mg 07/12/19 09:00 07/12/19 08:57 Norvasc PO 5 mg DAILY OLINDA Administration Al Hydroxide/Mg Hydroxide 60 0 ml 07/09/19 16:15 07/13/19 06:42 ml/ Lidocaine HCl 30 ml/ SSW 10 ml Diphenhydramine HCl 75 mg PRN PRN Administration Mouth Irritation Cyclobenzaprine HCl 10 mg 07/06/19 21:00 07/12/19 20:29 Flexeril PO 10 mg HS OLINDA Administration Diltiazem HCl 30 mg 07/09/19 18:00 07/13/19 05:03 Cardizem PO 30 mg Q6HR OLINDA Administration Enoxaparin Sodium 40 mg 07/06/19 21:00 07/12/19 20:31 Lovenox SC 40 mg 2100 OLINDA Administration Hydralazine HCl 10 mg 07/11/19 08:46 07/11/19 12:19 Apresoline SLOW IVP 10 mg Q4H PRN Administration SBP > 180 and HR < 70 Piperacillin Sod/Tazobactam 100 mls @ 200 mls/hr 07/05/19 23:59 07/13/19 05: 03 Sod 3.375 gm/ Sodium Chloride IVPB 100 mls Q6HR OLINDA Administration Micafungin Sodium 100 mg/ 100 mls @ 100 mls/hr 07/06/19 10:00 07/12/19 10:41 Sodium Chloride IVPB 100 mls Q24H OLINDA Administration Diltiazem HCl 125 mg/ 125 mls @ 0 mls/hr 07/07/19 15:30 07/08/19 19:22 Miscellaneous Medication 1 IVPB 125 mls each/ Sodium Chloride INF OLINDA Administration Protocol As Directed Sodium Chloride 1,000 mls @ 50 mls/hr 07/11/19 11:30 07/13/19 04:23 1/2 Normal Saline IV 1,000 mls .Q20H OLINDA Administration Melatonin 3 mg 07/04/19 22:06 07/04/19 22:44 Melatonin PO 3 mg HS PRN Administration Insomnia Methylprednisolone Sodium Succinate 20 mg 07/10/19 21:00 07/12/19 20:30 Solu-Medrol IVP 20 mg BID OLINDA Administration Metoprolol Succinate 50 mg 07/11/19 09:00 07/12/19 08:57 Toprol Xl PO 50 mg DAILY OLINDA Administration Nystatin 500,000 units 07/11/19 13:00 07/12/19 20:30 Mycostatin SSW 500,000 units QID OLINDA Administration Ondansetron HCl 4 mg 07/04/19 13:54 07/05/19 08:09 Zofran IVP 4 mg Q6H PRN Administration Nausea/Vomiting Pantoprazole Sodium 40 mg 07/08/19 09:00 07/12/19 08:58 Protonix PO 40 mg DAILY OLINDA Administration Sodium Chloride 10 ml 07/10/19 09:00 07/12/19 20:30 Flush - Normal Saline IVF 10 ml Q12HR OLINDA Administration Sodium Chloride 10 ml 07/10/19 07:28 07/11/19 12:20 Flush - Normal Saline IVF 10 ml PRN PRN Administration Saline Flush Throat Lozenges 1 zia 07/11/19 08:46 07/12/19 09:01 Cepastat Lozenges PO 1 zia Q2H PRN Administration Sore Throat Tramadol HCl 50 mg 07/06/19 15:20 07/13/19 01:09 Ultram PO 50 mg Q4H PRN Administration Pain - Exam ENT - other findings: dry lesions of oral stomatitis Heart: RRR, no murmur Respiratory: CTAB Gastrointestinal: soft, non-distended, normal bowel sounds Extremities: no edema Hosp A/P (1) HTN (hypertension) Code(s): I10 - ESSENTIAL (PRIMARY) HYPERTENSION Status: Acute Qualifiers: Hypertension type: essential hypertension Qualified Code(s): I10 - Essential (primary) hypertension (2) Adrenal insufficiency Code(s): E27.40 - UNSPECIFIED ADRENOCORTICAL INSUFFICIENCY Status: Acute (3) Colitis Code(s): K52.9 - NONINFECTIVE GASTROENTERITIS AND COLITIS, UNSPECIFIED Status : Acute (4) Oral herpes Code(s): B00.2 - HERPESVIRAL GINGIVOSTOMATITIS AND PHARYNGOTONSILLITIS Status : Acute (5) Rheumatoid arthritis Code(s): M06.9 - RHEUMATOID ARTHRITIS, UNSPECIFIED Status: Chronic Qualifiers: Rheumatoid arthritis location: unspecified site Rheumatoid factor presence : with rheumatoid factor Qualified Code(s): M05.9 - Rheumatoid arthritis with rheumatoid factor, unspecified (6) Septic shock Code(s): A41.9 - SEPSIS, UNSPECIFIED ORGANISM; R65.21 - SEVERE SEPSIS WITH SEPTIC SHOCK Status: Resolved - Plan still on iv antibx. on iv steroids. on acyclovar, need to discuss with GI. ID to formulate ongoing plan
[2019-07-13] MEDS: Amlodipine 5 MG TAB PO SCH (08:51)
[2019-07-13] MEDS: Acyclovir 400 mg Tablet PO SCH ×3 (08:52→20:23)
[2019-07-13] MEDS: Nystatin 500,000 UNITS/5 ML UDCUP SSW SCH ×4 (08:53→20:23)
[2019-07-13] MEDS: methylPREDNISolone Sod Succ 40 MG VIAL IVP SCH ×2 (08:56→20:23)
[2019-07-13] MEDS: Micafungin 100 MG in Sodium Chloride 0.9% 100 ML IVPB SCH (09:03)
[2019-07-13] MEDS: Loperamide HCl 2 MG CAP PO PRN ×2 (09:18→13:40)
[2019-07-13] MEDS: HumaLOG 300 UNITS/3 ML VIAL SC PRN (11:12)
--- NOTE | 2019-07-13 14:59 | PRG ---
DATE OF SERVICE: 07/13/2019 SUBJECTIVE: Ameena Parrish has no complaints. OBJECTIVE: VITAL SIGNS: She is afebrile. Heart rate is 101, blood pressure is 132/76. LUNGS: Clear. HEART: Regular rhythm. ABDOMEN: Nontender. LABORATORY DATA: White count 13.7, hemoglobin 11.4, platelets 362. Sodium 134, potassium was 4 yesterday, creatinine was 0.56 yesterday. IMPRESSION AND PLAN: Colitis, status post exploratory laparotomy with diarrhea illness leading up to this admission. We will continue to follow, though she appears to be stable at this point in time. Weakness and deconditioning are the biggest issues. She says she wants to go home, but I cannot see anyway she can go home since she cannot transfer from the bed to a chair. Job ID: [id number]
--- NOTE | 2019-07-13 17:36 | PDOC.EVN ---
Event Note - Event Note Event Note: patient and familty met with palliative care, requests DNAR status. patient oriented X3- status DNAR
--- NOTE | 2019-07-13 19:54 | PRG ---
DATE OF SERVICE: 07/13/2019 SUBJECTIVE: Ms. Parrish is eating. She did not walk today, she did not want to. OBJECTIVE: VITAL SIGNS: Temperature 97.6, pulse 87, respirations 18. ABDOMEN: Soft, nontender. LABORATORY DATA: White count 13.7, hemoglobin 11.4, MCV 75, platelet count 362. Sodium 134, potassium 4, BUN and creatinine 14 and 0.56. Liver function tests normal except for alkaline phosphatase 157. ASSESSMENT: 1. Admission with bacteremia of unclear etiology. It was felt that maybe she had colitis. However, she has had a colonoscopy that was normal. On 06/25/2019 when she was in with severe iron-deficiency anemia, there was no colitis at that time, only a flat polyp in the ascending colon, which was not removed secondary to its size and her comorbidities. 2. Chronic steroid use. 3. Failure to thrive. 4. 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 5. Blood cultures notable for Klebsiella, Clostridium, and Strep. This is most likely related to bacterial translocation, chronic illness, and chronic steroid use. I was concerned that could represent some type of contamination from her large deep antral ulcer found in her last admission when she was here for severe iron deficiency without bleeding. My concern is maybe that had perforated. However, Dr. Gonzalez did not see any signs of that in surgery. RECOMMENDATIONS: I have told her that if she plans on trying to get better, that she needs to go to rehab. She is insistent on going home. I told her if that happened, she would likely there or come back here sicker and . If that is what she wants to do is to go home, then she needs to go home with hospice care. I explained to her that even with two people helping her at home, she is not going to get up enough to fight bedsores and she would within a week probably had significant bedsores, pneumonia, and would be back in this hospital sicker, in which case she probably would not survive that admission. She is contemplating this long with her daughter to make a decision in the next day or so. At this point in time from a GI standpoint, I think she needs to be on a PPI. She needs to not be on NSAIDs and if she needs to be on stress dose steroids that is fine. The PPI would be used lifelong at this point in time. I would be happy to re-evaluate her if needed. For now, I will sign off. She was discharged in terms of outpatient care to the hospitalist. Job ID: [id number]
[2019-07-13] MEDS: Enoxaparin Sodium 40 MG/0.4 ML SYRINGE SC SCH (20:23)
[2019-07-13] MEDS: Cyclobenzaprine 10 MG TAB PO SCH (20:23)
[2019-07-14] MEDS: traMADol HCl 50 MG TAB PO PRN ×3 (03:05→20:48)
[2019-07-14 03:27] LABS: #Lymphocytes 0.5 thou/uL (1.20-3.40); #Monocytes 0.5 thou/uL (0.11-0.59); %Basophils 0.1 % (0.0-1.0); %Eosinophils 0.1 % (0.0-10.0); %Lymphocytes 3.5 % (21.0-51.0); %Monocytes 3.4 % (0.0-10.0); %Neutrophils 92.9 % (42.0-75.0); Hemoglobin 10.4 g/dL (12.0-16.0); Mean Corpuscular HGB CONC 30.1 g/dL (32.0-36.0); Mean Corpuscular Hemoglobin 22.8 pg (27.0-31.0); Mean Corpuscular Volume 75.6 fL (78.0-98.0); Mean Platelet Volume 6.3 fL (7.4-10.4); Platelet Count 325 thou/uL (130-400); RBC Distribution Width 26.6 % (11.5-14.5); Red Blood Cell (RBC) Count 4.58 mill/uL (4.20-5.40); White Blood Cell (WBC) Count 15.1 thou/uL (4.8-10.8)
[2019-07-14] MEDS: Piperacillin/Tazobactam 3.375 GM in Sodium Chloride 0.9% 100 ML IVPB SCH ×4 (05:26→23:24)
[2019-07-14] MEDS: Aluminum & Magnesium Hydroxide 60 ML, Lidocaine 2% Viscous Solution 30 ML, diphenhydrAM... SSW PRN ×3 (05:26→17:14)
[2019-07-14] MEDS: Nystatin 500,000 UNITS/5 ML UDCUP SSW SCH ×4 (09:33→20:45)
[2019-07-14] MEDS: methylPREDNISolone Sod Succ 40 MG VIAL IVP SCH (09:34)
[2019-07-14] MEDS: Acyclovir 400 mg Tablet PO SCH ×3 (09:34→20:45)
[2019-07-14] MEDS: Micafungin 100 MG in Sodium Chloride 0.9% 100 ML IVPB SCH (09:34)
--- NOTE | 2019-07-14 11:40 | PDOC.HOSPP ---
- Subjective Encounter Date: 07/14/19 Encounter Time: 11:37 Subjective: alert, slightly more active - Objective Vital Signs & Weight: Vital Signs (12 hours) Temp Pulse BP Pulse Ox 07/14/19 11:17 98.9 F 07/14/19 09:33 117 H 128/89 07/14/19 08:13 96 07/14/19 07:41 99.0 F 07/14/19 03:55 98.6 F 07/14/19 02:40 95 07/14/19 00:00 98.3 F Weight Admit Weight 80 lb 11.027 oz Weight 80 lb 4.8 oz Most Recent Monitor Data Heart Rate from ECG 135 NIBP 162/93 NIBP BP-Mean 116 Respiration from ECG 21 SpO2 93 I&O: 07/13/19 07/14/19 07/15/19 06:59 06:59 06:59 Intake Total 3480.5 4242 Output Total 3300 3025 Balance 180.5 1217 Result Diagrams: 07/14/19 03:04 07/12/19 04:16 Additional Labs: Accuchecks 07/13/19 16:38 POC Glucose 256 H Hospitalist ROS - Medication Medications: Active Medications Generic Name Dose Route Start Last Admin Trade Name Freq PRN Reason Stop Dose Admin Acetaminophen 1,000 mg 07/07/19 20:30 07/12/19 10:41 Tylenol PO 1,000 mg Q6H PRN Administration Moderate to Severe Pain (6-10) Acyclovir 400 mg 07/09/19 21:00 07/14/19 09:34 Zovirax PO 400 mg TID OLINDA Administration Al Hydroxide/Mg Hydroxide 60 0 ml 07/09/19 16:15 07/14/19 05:26 ml/ Lidocaine HCl 30 ml/ SSW 30 ml Diphenhydramine HCl 75 mg PRN PRN Administration Mouth Irritation Cyclobenzaprine HCl 10 mg 07/06/19 21:00 07/13/19 20:23 Flexeril PO 10 mg HS OLINDA Administration Diltiazem HCl 240 mg 07/14/19 09:00 07/14/19 09:33 Cardizem Cd PO 240 mg DAILY OLINDA Administration Enoxaparin Sodium 40 mg 07/06/19 21:00 07/13/19 20:23 Lovenox SC 40 mg 2100 OLINDA Administration Hydralazine HCl 10 mg 07/11/19 08:46 07/11/19 12:19 Apresoline SLOW IVP 10 mg Q4H PRN Administration SBP > 180 and HR < 70 Piperacillin Sod/Tazobactam 100 mls @ 200 mls/hr 07/05/19 23:59 07/14/19 05: 26 Sod 3.375 gm/ Sodium Chloride IVPB 100 mls Q6HR OLINDA Administration Micafungin Sodium 100 mg/ 100 mls @ 100 mls/hr 07/06/19 10:00 07/14/19 09:34 Sodium Chloride IVPB 100 mls Q24H OLINDA Administration Diltiazem HCl 125 mg/ 125 mls @ 0 mls/hr 07/07/19 15:30 07/08/19 19:22 Miscellaneous Medication 1 IVPB 125 mls each/ Sodium Chloride INF OLINDA Administration Protocol As Directed Sodium Chloride 1,000 mls @ 50 mls/hr 07/11/19 11:30 07/13/19 20:27 1/2 Normal Saline IV 1,000 mls .Q20H OLINDA Administration Insulin Human Lispro 0 units 07/10/19 07:25 07/13/19 11:12 Humalog SC 4 unit .MILD SLIDING SCALE PRN Administration Mild Correctional Scale Loperamide HCl 2 mg 07/11/19 08:46 07/13/19 13:40 Imodium PO 2 mg PRN PRN Administration Diarrhea/Loose Stools Melatonin 3 mg 07/04/19 22:06 07/04/19 22:44 Melatonin PO 3 mg HS PRN Administration Insomnia Metoprolol Succinate 50 mg 07/11/19 09:00 07/14/19 09:33 Toprol Xl PO 50 mg DAILY OLINDA Administration Nystatin 500,000 units 07/11/19 13:00 07/14/19 09:33 Mycostatin SSW 500,000 units QID OLINDA Administration Ondansetron HCl 4 mg 07/04/19 13:54 07/05/19 08:09 Zofran IVP 4 mg Q6H PRN Administration Nausea/Vomiting Pantoprazole Sodium 40 mg 07/08/19 09:00 07/14/19 09:33 Protonix PO 40 mg DAILY OLINDA Administration Sodium Chloride 10 ml 07/10/19 09:00 07/14/19 09:34 Flush - Normal Saline IVF 10 ml Q12HR OLINDA Administration Sodium Chloride 10 ml 07/10/19 07:28 07/11/19 12:20 Flush - Normal Saline IVF 10 ml PRN PRN Administration Saline Flush Throat Lozenges 1 zia 07/11/19 08:46 07/12/19 09:01 Cepastat Lozenges PO 1 zia Q2H PRN Administration Sore Throat Tramadol HCl 50 mg 07/06/19 15:20 07/14/19 03:05 Ultram PO 50 mg Q4H PRN Administration Pain - Exam Neck: no JVD Heart: irregular Respiratory: CTAB Gastrointestinal: soft, non-tender, normal bowel sounds Extremities: no edema Hosp A/P (1) HTN (hypertension) Code(s): I10 - ESSENTIAL (PRIMARY) HYPERTENSION Status: Acute Qualifiers: Hypertension type: essential hypertension Qualified Code(s): I10 - Essential (primary) hypertension (2) Adrenal insufficiency Code(s): E27.40 - UNSPECIFIED ADRENOCORTICAL INSUFFICIENCY Status: Acute (3) Colitis Code(s): K52.9 - NONINFECTIVE GASTROENTERITIS AND COLITIS, UNSPECIFIED Status : Acute (4) Oral herpes Code(s): B00.2 - HERPESVIRAL GINGIVOSTOMATITIS AND PHARYNGOTONSILLITIS Status : Acute (5) Rheumatoid arthritis Code(s): M06.9 - RHEUMATOID ARTHRITIS, UNSPECIFIED Status: Chronic Qualifiers: Rheumatoid arthritis location: unspecified site Rheumatoid factor presence : with rheumatoid factor Qualified Code(s): M05.9 - Rheumatoid arthritis with rheumatoid factor, unspecified (6) Septic shock Code(s): A41.9 - SEPSIS, UNSPECIFIED ORGANISM; R65.21 - SEVERE SEPSIS WITH SEPTIC SHOCK Status: Resolved - Plan taper steroids to po cont acyclovar. discuss with ID transitioning antibx. suspect leukocytosis due to glucocoticoids
[2019-07-14] MEDS: Cyclobenzaprine 10 MG TAB PO SCH (20:45)
[2019-07-14] MEDS: Enoxaparin Sodium 40 MG/0.4 ML SYRINGE SC SCH (20:45)
[2019-07-14] MEDS: Sodium Chloride 0.45% 1,000 ML IV SCH (20:45)
[2019-07-15] MEDS: Piperacillin/Tazobactam 3.375 GM in Sodium Chloride 0.9% 100 ML IVPB SCH ×4 (05:32→23:21)
[2019-07-15] MEDS: Aluminum & Magnesium Hydroxide 60 ML, Lidocaine 2% Viscous Solution 30 ML, diphenhydrAM... SSW PRN ×2 (05:33→09:51)
[2019-07-15 05:39] VITALS: BMI 16.6
[2019-07-15 06:06] LABS: #Basophils 0.1 thou/uL (0.0-0.2); #Eosinphils 0.1 thou/uL (0.0-0.7); #Lymphocytes 2.6 thou/uL (1.20-3.40); #Neutrophils 14.1 thou/uL (1.40-6.50); %Basophils 0.3 % (0.0-1.0); %Eosinophils 0.4 % (0.0-10.0); %Lymphocytes 14.4 % (21.0-51.0); %Monocytes 5.6 % (0.0-10.0); %Neutrophils 79.4 % (42.0-75.0); Hemoglobin 10.1 g/dL (12.0-16.0); Mean Corpuscular HGB CONC 30.2 g/dL (32.0-36.0); Mean Corpuscular Hemoglobin 22.6 pg (27.0-31.0); Mean Corpuscular Volume 74.8 fL (78.0-98.0); Mean Platelet Volume 6.2 fL (7.4-10.4); Platelet Count 319 thou/uL (130-400); RBC Distribution Width 26.6 % (11.5-14.5); Red Blood Cell (RBC) Count 4.47 mill/uL (4.20-5.40); White Blood Cell (WBC) Count 17.8 thou/uL (4.8-10.8)
[2019-07-15] MEDS ORDERED: predniSONE 20 MG TAB PO SCH (08:00)
--- NOTE | 2019-07-15 08:02 | PDOC.HOSPP ---
- Subjective Encounter Date: 07/15/19 Encounter Time: 07:59 Subjective: abdominal pain, LLQ - Objective Vital Signs & Weight: Vital Signs (12 hours) Temp Pulse Ox 07/15/19 07:26 97.9 F 07/15/19 03:36 97.9 F 07/15/19 00:00 98.2 F 07/14/19 20:00 96 Weight Admit Weight 80 lb 11.027 oz Weight 76 lb 14.4 oz Most Recent Monitor Data Heart Rate from ECG 103 NIBP 156/115 NIBP BP-Mean 128 Respiration from ECG 25 SpO2 94 I&O: 07/14/19 07/15/19 07/16/19 06:59 06:59 06:59 Intake Total 4242 3422.5 Output Total 3025 3425 Balance 1217 -2.5 Result Diagrams: 07/15/19 05:26 07/12/19 04:16 Hospitalist ROS - Medication Medications: Active Medications Generic Name Dose Route Start Last Admin Trade Name Freq PRN Reason Stop Dose Admin Acetaminophen 1,000 mg 07/07/19 20:30 07/12/19 10:41 Tylenol PO 1,000 mg Q6H PRN Administration Moderate to Severe Pain (6-10) Acyclovir 400 mg 07/09/19 21:00 07/14/19 20:45 Zovirax PO 400 mg TID OLINDA Administration Al Hydroxide/Mg Hydroxide 60 0 ml 07/09/19 16:15 07/15/19 05:33 ml/ Lidocaine HCl 30 ml/ SSW 10 ml Diphenhydramine HCl 75 mg PRN PRN Administration Mouth Irritation Cyclobenzaprine HCl 10 mg 07/06/19 21:00 07/14/19 20:45 Flexeril PO 10 mg HS OLINDA Administration Diltiazem HCl 240 mg 07/14/19 09:00 07/14/19 09:33 Cardizem Cd PO 240 mg DAILY OLINDA Administration Enoxaparin Sodium 40 mg 07/06/19 21:00 07/14/19 20:45 Lovenox SC 40 mg 2100 OLINDA Administration Hydralazine HCl 10 mg 07/11/19 08:46 07/11/19 12:19 Apresoline SLOW IVP 10 mg Q4H PRN Administration SBP > 180 and HR < 70 Piperacillin Sod/Tazobactam 100 mls @ 200 mls/hr 07/05/19 23:59 07/15/19 05: 32 Sod 3.375 gm/ Sodium Chloride IVPB 100 mls Q6HR OLINDA Administration Micafungin Sodium 100 mg/ 100 mls @ 100 mls/hr 07/06/19 10:00 07/14/19 09:34 Sodium Chloride IVPB 100 mls Q24H OLINDA Administration Diltiazem HCl 125 mg/ 125 mls @ 0 mls/hr 07/07/19 15:30 07/08/19 19:22 Miscellaneous Medication 1 IVPB 125 mls each/ Sodium Chloride INF OLINDA Administration Protocol As Directed Sodium Chloride 1,000 mls @ 50 mls/hr 07/11/19 11:30 07/14/19 20:45 1/2 Normal Saline IV 1,000 mls .Q20H OLINDA Administration Insulin Human Lispro 0 units 07/10/19 07:25 07/13/19 11:12 Humalog SC 4 unit .MILD SLIDING SCALE PRN Administration Mild Correctional Scale Loperamide HCl 2 mg 07/11/19 08:46 07/13/19 13:40 Imodium PO 2 mg PRN PRN Administration Diarrhea/Loose Stools Melatonin 3 mg 07/04/19 22:06 07/04/19 22:44 Melatonin PO 3 mg HS PRN Administration Insomnia Metoprolol Succinate 50 mg 07/11/19 09:00 07/14/19 09:33 Toprol Xl PO 50 mg DAILY OLINDA Administration Nystatin 500,000 units 07/11/19 13:00 07/14/19 20:45 Mycostatin SSW 500,000 units QID OLINDA Administration Ondansetron HCl 4 mg 07/04/19 13:54 07/05/19 08:09 Zofran IVP 4 mg Q6H PRN Administration Nausea/Vomiting Pantoprazole Sodium 40 mg 07/08/19 09:00 07/14/19 09:33 Protonix PO 40 mg DAILY OLINDA Administration Sodium Chloride 10 ml 07/10/19 09:00 07/14/19 20:45 Flush - Normal Saline IVF 10 ml Q12HR OLINDA Administration Sodium Chloride 10 ml 07/10/19 07:28 07/11/19 12:20 Flush - Normal Saline IVF 10 ml PRN PRN Administration Saline Flush Throat Lozenges 1 zia 07/11/19 08:46 07/12/19 09:01 Cepastat Lozenges PO 1 zia Q2H PRN Administration Sore Throat Tramadol HCl 50 mg 07/06/19 15:20 07/14/19 20:48 Ultram PO 50 mg Q4H PRN Administration Pain - Exam Neck: no JVD Heart: RRR Respiratory: CTAB Gastrointestinal: tender to palpation Gastrointestinal - other findings: LLQ, increases BS Extremities: no edema Hosp A/P (1) Abdominal pain, acute, left lower quadrant Code(s): R10.32 - LEFT LOWER QUADRANT PAIN Status: Acute (2) Diarrhea Code(s): R19.7 - DIARRHEA, UNSPECIFIED Status: Acute Qualifiers: Diarrhea type: unspecified type Qualified Code(s): R19.7 - Diarrhea, unspecified (3) HTN (hypertension) Code(s): I10 - ESSENTIAL (PRIMARY) HYPERTENSION Status: Acute Qualifiers: Hypertension type: essential hypertension Qualified Code(s): I10 - Essential (primary) hypertension (4) Adrenal insufficiency Code(s): E27.40 - UNSPECIFIED ADRENOCORTICAL INSUFFICIENCY Status: Acute (5) Colitis Code(s): K52.9 - NONINFECTIVE GASTROENTERITIS AND COLITIS, UNSPECIFIED Status : Acute (6) Oral herpes Code(s): B00.2 - HERPESVIRAL GINGIVOSTOMATITIS AND PHARYNGOTONSILLITIS Status : Acute (7) Rheumatoid arthritis Code(s): M06.9 - RHEUMATOID ARTHRITIS, UNSPECIFIED Status: Chronic Qualifiers: Rheumatoid arthritis location: unspecified site Rheumatoid factor presence : with rheumatoid factor Qualified Code(s): M05.9 - Rheumatoid arthritis with rheumatoid factor, unspecified (8) Septic shock Code(s): A41.9 - SEPSIS, UNSPECIFIED ORGANISM; R65.21 - SEVERE SEPSIS WITH SEPTIC SHOCK Status: Resolved - Plan rpt stool for XC diff 2V abd XR discuss with general surgery
[2019-07-15] MEDS: traMADol HCl 50 MG TAB PO PRN ×2 (09:44→20:15)
[2019-07-15] MEDS: Acyclovir 400 mg Tablet PO SCH ×3 (09:48→20:14)
[2019-07-15] MEDS: Nystatin 500,000 UNITS/5 ML UDCUP SSW SCH ×4 (09:48→20:14)
[2019-07-15 09:51] VITALS: BP 148/94
[2019-07-15] MEDS: Micafungin 100 MG in Sodium Chloride 0.9% 100 ML IVPB SCH (09:53)
--- NOTE | 2019-07-15 10:20 | RAD ---
TWO VIEW ABDOMEN SERIES: INDICATION: Abdominal pain. FINDINGS: There is mild blunting of the left costophrenic sulcus that may represent small volume pleural fluid. Partially imaged central line overlies the right heart border. Bowel gas pattern is nonobstructed. There is osseous degenerative change. Levoscoliosis of the lower thoracic spine is present. IMPRESSION: 1. Nonspecific bowel gas pattern. 2. Probable small left pleural effusion. 3. No free air is seen beneath the hemidiaphragms. POS: [facility]
[2019-07-15] MEDS ORDERED: Morphine 2 MG/ML SYRINGE SLOW IVP PRN (12:16)
[2019-07-15] MEDS: Ondansetron PF 4 MG/2 ML Vial IVP PRN (13:06)
[2019-07-15] MEDS: Sodium Chloride 0.45% 1,000 ML IV SCH (13:25)
[2019-07-15] MEDS: Morphine 4 MG/ML VIAL SLOW IVP PRN ×3 (14:43→23:21)
--- NOTE | 2019-07-15 17:15 | PRG ---
DATE OF SERVICE: 07/15/2019 SUBJECTIVE: Ameena Parrish is in IMCU today. She has been relatively pain free from her abdomen and nontender, but today developed increased pain in her left lower quadrant. I have been asked by Dr. Yoon and Dr. Lopez to see her again. OBJECTIVE: VITAL SIGNS: Temperature 97.4 degrees and blood pressure 117/75. LUNGS: Clear to auscultation. CARDIAC: Regular rate and rhythm without murmur or gallop. ABDOMEN: Soft with tenderness and guarding in her left lower quadrant. This is the same tenderness she had prior that did resolve with antibiotics. The patient has sores, perioral consistent with her shingles. Dr. Navarro is following her. Current antimicrobial regimen includes acyclovir, micafungin, and Zosyn. Abdominal x-ray obtained today is nonspecific, two views. There is no evidence of obstruction. There appeared to be gas throughout the colon, but no distended loops. White count is increased to 17,000 and hemoglobin 10. ASSESSMENT AND PLAN: Colitis, segmental sigmoid 12 cm about previous CAT scan and laparotomy. This was not resected and seen improved on parenteral antibiotic regimen. Differential diagnosis includes histoplasmosis, diverticulitis, colitis, infectious. The patient's pain and tenderness resolved. There is no radiological followup on CAT scan; however, she has recurrent symptoms as she had when she presented. I discussed with her options. The patient is DNR. The patient and her friend, who supports her, does not want surgery and does not want to repeat CAT scans or intervention. At this point, she only wants comfort measures and she is just tired of having pain and hurting. I have told her that if we did entertain the thought of an operation, it is likely she would certainly need a colostomy. She, however, declines this, does not want operative intervention. Please call if I can be of further service. Job ID: [id number]
[2019-07-15] MEDS: Enoxaparin Sodium 40 MG/0.4 ML SYRINGE SC SCH (20:14)
[2019-07-15] MEDS: Cyclobenzaprine 10 MG TAB PO SCH (20:14)
[2019-07-16] MEDS: Sodium Chloride 0.45% 1,000 ML IV SCH (00:52)
[2019-07-16 01:03] LABS: Anion Gap 17 mmol/L (10-20); BUN (Urea Nitrogen) 27 mg/dL (9.8-20.1); Calc. Creatinine Clearance 34 mL/min (70-130); Calcium 7.7 mg/dL (7.8-10.44); Carbon Dioxide 21 mmol/L (23-31); Chloride 97 mmol/L (98-107); Estimated GFR-MDRD 67; Glucose 407 mg/dL (80-115); Potassium 5.2 mmol/L (3.5-5.1); Sodium 130 mmol/L (136-145)
[2019-07-16] MEDS ORDERED: Sodium Chloride 0.9% 500 ML IV SCH (01:15)
[2019-07-16] MEDS ORDERED: Sodium Chloride 0.9% 1,000 ML IV SCH (01:15)
[2019-07-16] MEDS: Ondansetron PF 4 MG/2 ML Vial IVP PRN (01:18)
[2019-07-16] MEDS: HumaLOG 300 UNITS/3 ML VIAL SC PRN (01:18)
[2019-07-16 04:04] VITALS: TEMP 97.2
[2019-07-16 04:25] LABS: Hemoglobin 5.8 g/dL (12.0-16.0); Mean Corpuscular HGB CONC 29.6 g/dL (32.0-36.0); Mean Corpuscular Hemoglobin 22.4 pg (27.0-31.0); Mean Corpuscular Volume 75.9 fL (78.0-98.0); Mean Platelet Volume 11.1 fL (7.4-10.4); Platelet Count 348 thou/uL (130-400); RBC Distribution Width 28.6 % (11.5-14.5); Red Blood Cell (RBC) Count 2.59 mill/uL (4.20-5.40); White Blood Cell (WBC) Count 29.9 thou/uL (4.8-10.8)
[2019-07-16 04:45] LABS: Band 5 % (5-11); Hypochromia MODERATE=16-30 cells (100X) (0-5/hpf); Lymphocytes 7 % (21-51); MDiff Complete? YES; Monocytes 2 % (0-10); Neutrophil 86 % (42-75); Platelet Morphology Comment Appears Adequate
[2019-07-16] MEDS: Piperacillin/Tazobactam 3.375 GM in Sodium Chloride 0.9% 100 ML IVPB SCH (04:48)
--- NOTE | 2019-07-16 08:45 | PRG ---
DATE OF SERVICE: 07/15/2019 SUBJECTIVE: Ameena Parrish has developed an exquisitely tender left lower quadrant. She does not want to be on a ventilator and does not want another surgery. PHYSICAL EXAMINATION: VITAL SIGNS: She is afebrile. Blood pressure is 111/75, heart rate 101, respiratory rate 22. LUNGS: Clear. HEART: Regular rhythm HR 120. I asked Dr. Gonzalez to take another look at her. He actually declined having another CT done. Comfort measures. I increased her morphine today. Appreciate Dr. Gonzalez's input. Job ID: [id number] MTDD
--- NOTE | 2019-07-16 08:52 | DIS ---
DATE OF ADMISSION: 07/04/2019 DATE OF DISCHARGE: 07/16/2019 PRIMARY CARE PROVIDER: Abhijeet Barnett. DATE: 07/16/2019. FINAL DIAGNOSES: 1. Sepsis. 2. Acute kidney failure. 3. Colitis. 4. Abdominal pain. 5. Hypertension. 6. Adrenal insufficiency. 7. Rheumatoid arthritis. 8. Lactic acidosis. 9. Type 2 myocardial infarction. CONSULTATIONS: 1. Dr. Bebo Yoon, Pulmonology. 2. Dr. Pedro Mcdowell. 3. Dr. Jonathan Gonzalez, General Surgery. 4. Dr. Silvio Garcia, Cardiology. 5. Dr. Johnny Wallis, Gastroenterology. 6. Dr. Chauncey Navarro, Infectious Disease. PROCEDURES: Exploratory laparotomy on 07/05/2019, Dr. Jonathan Gonzalez. HOSPITAL COURSE: The patient was admitted to [facility] with shock syndrome. Chest x-ray shows some acute vascular congestion. EKG showed only a sinus tachycardia. BNP was 769. Initial troponin of 0.37. BUN 22, creatinine 1.17. Lactic acid was 5.3. She was started on broad-spectrum antibiotics, Levophed for blood pressure control. Put on bronchodilators, intravenous glucocorticoids. Cultures done here were negative. Cultures done at an outlying facility reveal multiple species, Klebsiella pneumoniae was the common one. There was also unfortunately a mix culture, both had Clostridia also. She underwent exploratory laparotomy after having abdominal pelvis CT, which revealed prominent thickening in the sigmoid colon, some anasarca. Findings at laparotomy revealed only sigmoid colitis. Echocardiogram done on 07/05 revealed EF of 55% to 60% with some diastolic dysfunction. She had a recent EGD, colonoscopy, and then was not recommended. The patient did in fact improved slowly during her hospital stay. On 07/13/2019 when I first saw her, she was alert, had no GI complaints. Her septic shock had resolved. She was on IV antibiotics, IV steroids, and acyclovir. On 07/15/2019, she developed significant pain in her left lower quadrant. Dr. Gonzalez was called for evaluation. Her abdomen, at that time, was exquisitely tender with a mass in the left lower quadrant. The patient with family present, refused any further test, any surgery. She was made DNR. I was notified that she succumbed at 6:04 this a.m. on 07/16/2019. No autopsy requested. Body released to home. Job ID: [id number]
--- NOTE | 2019-07-18 01:28 | PQF ---
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 Clinical indicators are provided on the bottom of this form for your review Can you please further specify the type of CHF? Please check appropriate box(s): ACUTE HEART FAILURE: A. TYPE: [ ] Systolic / HFrEF [ ] Diastolic / HFpEF [ ] Combined Systolic / Diastolic [ ] Other diagnosis please specify [ ] Unable to determine In addition, please specify: Present on Admission (POA): [ ] Yes [ ] No [ ] Unable to determine For continuity of documentation, please document condition throughout progress notes and discharge summary. Thank You. CLINICAL INDICATORS H&P p3 07/04 Dr. Anand- Acute Heart failure: Etiology is unclear. Fluid resuscitation may be contributory though the patient had elevated troponin and BMP Laboratory- "Troponin 07/04 0.362H, 0.410H" DS p2 07/16 Dr. Lopez- Echocardiogram done on 07/05 revealed EF of 55% to 60% with some diastolic dysfunction DS p1 07/16 Dr. Lopez- "BNP was 769" RISKS: HERMINIA- Hospitalist PN 07/05 Dr. Anand HTN- H&P 07/04 Dr. Anand COPD- Hospitalist PN 07/05 Dr. Anand Type 2 myocardial Infarction- DS pg.1 TREATMENTS: IV Lasix 40 mg-MAR 07/07 Cardiology consult- Consult 07/05 Dr. Garcia Echocardiogram 07/05 Chest X-ray 07/04 (This form is maintained as a part of the permanent medical record) 2014 [employer] All Rights Reserved [email or web address] [not provided] MTDD
--- NOTE | 2019-07-18 14:48 | EKG ---
Test Reason : ELEVATED TROP Blood Pressure : / mmHG Vent. Rate : 119 BPM Atrial Rate : 119 BPM P-R Int : 120 ms QRS Dur : 098 ms QT Int : 360 ms P-R-T Axes : 077 060 064 degrees QTc Int : 506 ms Sinus tachycardia Incomplete right bundle branch block Borderline ECG Confirmed by CAMACHO Dalton, IVORY ([id number]), food editor VAL JACOME ([id number]) on 07/18/2019 2:48:50 PM Referred By: CAMACHO Confirmed By:IVORY SAUER M.D.
== END 2019-07-16 06:04 | disposition expired | DRG 853 ==
LOC: ERS 11:06 → CCU 12:04 → IMCU/EMU 07-08 06:12
PROVIDERS: ADMIT Internal Medicine Nephrology; ATTEND Internal Medicine Nephrology
PROC: 3E033XZ Introduction of Vasopressor into Peripheral Vein, Percutaneous Approach (ICD-10-PCS; 2019-07-04)
PROC: 0W9G0ZZ Drainage of Peritoneal Cavity, Open Approach (ICD-10-PCS; principal; 2019-07-05)
PROC: 5A1935Z Respiratory Ventilation, Less than 24 Consecutive Hours (ICD-10-PCS; 2019-07-05)
PROC: 02HV33Z Insertion of Infusion Device into Superior Vena Cava, Percutaneous Approach (ICD-10-PCS; 2019-07-08)
PROC: B548ZZA Ultrasonography of Superior Vena Cava, Guidance (ICD-10-PCS; 2019-07-08)
DX: A41.59 Other Gram-negative sepsis (principal); R65.21 Severe sepsis with septic shock; G93.41 Metabolic encephalopathy; I21.A1 Myocardial infarction type 2; J96.00 Acute respiratory failure, unspecified whether with hypoxia or hypercapnia; M62.82 Rhabdomyolysis; N17.9 Acute kidney failure, unspecified; E87.2 Acidosis; J44.1 Chronic obstructive pulmonary disease with (acute) exacerbation; J98.11 Atelectasis; Z68.1 Body mass index [BMI] 19.9 or less, adult; K50.10 Crohn's disease of large intestine without complications; I48.92 Unspecified atrial flutter; E27.40 Unspecified adrenocortical insufficiency; I47.2 Ventricular tachycardia; B00.2 Herpesviral gingivostomatitis and pharyngotonsillitis; E44.0 Moderate protein-calorie malnutrition; R64 Cachexia; A41.81 Sepsis due to Enterococcus; Z66 Do not resuscitate; M06.9 Rheumatoid arthritis, unspecified; F17.210 Nicotine dependence, cigarettes, uncomplicated; G89.4 Chronic pain syndrome; R53.81 Other malaise; E87.6 Hypokalemia; M54.2 Cervicalgia; E83.42 Hypomagnesemia; E88.09 Other disorders of plasma-protein metabolism, not elsewhere classified; E86.9 Volume depletion, unspecified; M25.412 Effusion, left shoulder; M25.411 Effusion, right shoulder; D72.823 Leukemoid reaction; K63.5 Polyp of colon; K25.9 Gastric ulcer, unspecified as acute or chronic, without hemorrhage or perforation; I48.91 Unspecified atrial fibrillation; Z90.710 Acquired absence of both cervix and uterus; Z79.52 Long term (current) use of systemic steroids; Z79.899 Other long term (current) drug therapy; Z79.1 Long term (current) use of non-steroidal anti-inflammatories (NSAID); I11.0 Hypertensive heart disease with heart failure; I50.9 Heart failure, unspecified
CPT/HCPCS: 36415; 36416; 36569; 71045; 71260; 74019; 74177; 80048; 80053; 80069; 80202; 80400; 81001; 82533; 82550; 82553; 82805; 83605; 83630; 83735; 84484; 85025; 85060; 86140; 86850; 86900; 86901; 87015; 87045; 87046; 87070; 87086; 87177; 87205; 87206; 87324; 87427; 87449; 89051; 93005; 93010; 93306; 94002; 94640; 96365; 96366; 96375; 99292; C1751; C9113; J0131; J0153; J0360; J0692; J0834; J1170; J1644; J1650; J1885; J1940; J1956; J2001; J2248; J2270; J2370; J2405; J2543; J2704; J2920; J3010; J3370; J3475; J3480; J3490; J7050; J7512; J7620; Q0163; Q9966